=== PATIENT | female | born 1965 | race Caucasian/White ===

== ENCOUNTER → 2017-04-09 | Outpatient (CLI) | payer OTHER ==
--- NOTE | 2017-04-09 11:00 | XR ---
EXAMINATION TYPE: XR lumbar spine 2 or 3V DATE OF EXAM: 04/09/2017 CLINICAL HISTORY: History of 2 prior back surgeries presents with low back pain. TECHNIQUE: Frontal and lateral images of the lumbar spine are obtained. COMPARISON: Abdominal x-ray October 25, 2014 FINDINGS: There are 5 lumbar type vertebral bodies redemonstrated. The lumbar spine shows straighte carlos enrique alignment without evidence of acute fracture or dislocation. There is redemonstration of bilatera l laminectomy defects and spinous process resection at L4-L5 levels. There is bilateral interpedicula r rods and screws at L4-S1 levels redemonstrated. Artificial hyperdense disc material L4-L5 level is again seen. There is moderate to advanced disc space narrowing with mild to moderate spurring L5-S1 l evel. Vertebral body heights and disk space heights above surgical levels are within normal limits. The overlying soft tissue appears unremarkable. IMPRESSION: Postsurgical change L4-S1 level redemonstrated. Stable and satisfactory alignment is note d.
--- NOTE | 2017-04-09 11:01 | XR ---
EXAMINATION TYPE: XR foot limited bilateral DATE OF EXAM: 04/09/2017 CLINICAL HISTORY: Numbness and pain starting in left foot down both feet for one year per patient. TECHNIQUE: Frontal and lateral images of the bilateral the are obtained. COMPARISON: None FINDINGS: There is no acute fracture/dislocation evident in either foot. There are small spurs super ior and inferior calcaneus and both feet. Flexion in toes is present bilaterally worse in the left fo ot. The overlying soft tissue show some vascular calcification bilaterally. IMPRESSION: Bilateral small calcaneal spurring. Flexion or hammertoe type deformity of toes left foot .
== END | disposition home or self-care (01) ==
LOC: RADXRMAIN 10:27
PROVIDERS: ATTEND Internal Medicine
DX: M77.32 Calcaneal spur, left foot (principal); M77.31 Calcaneal spur, right foot; M54.5 Low back pain; Z98.890 Other specified postprocedural states
CPT/HCPCS: 72100

== ENCOUNTER → 2018-10-06 | Outpatient (CLI) | payer OTHER ==
[2018-10-06 10:16] LABS: HCT 43.7 % (34.0-46.0); HGB 14.2 gm/dL (11.4-16.0); MCHC 32.4 g/dL (31.0-37.0); MCV 83.4 fL (80.0-100.0); Mean Platelet Volume 8.1; Platelet Count 212 k/uL (150-450); RBC 5.24 m/uL (3.80-5.40); RDW 14.6 % (11.5-15.5); WBC 8.5 k/uL (3.8-10.6)
[2018-10-06 17:08] LABS: Albumin 4.1 g/dL (3.80-4.90); Albumin/Globulin Ratio 1.52 (1.60-3.17); Anion Gap 8.1 mmol/L (4.00-12.00); Calcium 9.4 mg/dL (8.7-10.3); Carbon Dioxide 24.9 mmol/L (21.6-31.8); Globulin 2.7 g/dL (1.6-3.3); Potassium 4.3 mmol/L (3.5-5.5); Total Bilirubin 0.3 mg/dL (0.3-1.2); Total Protein 6.8 g/dL (6.2-8.2)
[2018-10-06 19:13] LABS: Hemoglobin A1C 7.6 % (4.0-6.0)
== END | disposition home or self-care (01) ==
LOC: LABWHC1 09:05
PROVIDERS: ATTEND Internal Medicine
DX: E11.9 Type 2 diabetes mellitus without complications (principal); R42 Dizziness and giddiness; R11.0 Nausea
CPT/HCPCS: 36415; 80053; 83036; 84443; 85027

== ENCOUNTER 2018-12-09 15:39 | Observation (INO) | payer OTHER ==
[2018-12-09 15:44] VITALS: RESP 16
[2018-12-09] MEDS ORDERED: ONDANSETRON 4 MG/2 ML VIAL IVP STA (15:46)
[2018-12-09] MEDS ORDERED: SODIUM CHLORIDE 0.9% 1,000 ML IV STA (15:46)
[2018-12-09 16:11] LABS: Anion Gap 11 mmol/L; Blood Urea Nitrogen 17 mg/dL (7-17); Calcium 9.7 mg/dL (8.4-10.2); Carbon Dioxide 23 mmol/L (22-30); Chloride 104 mmol/L (98-107); Glucose 170 mg/dL (74-99); Magnesium 1.6 mg/dL (1.6-2.3); Potassium 4.1 mmol/L (3.5-5.1); Sodium 138 mmol/L (137-145)
[2018-12-09 16:33] LABS: Basophils % (A) 0 %; Eosinophils % (A) 0 %; HCT 42.9 % (34.0-46.0); HGB 14.1 gm/dL (11.4-16.0); Lymphocytes # (A) 1.2 k/uL (1.0-4.8); Lymphocytes % (A) 12 %; MCH 26.6 pg (25.0-35.0); MCV 80.8 fL (80.0-100.0); Mean Platelet Volume 8.7; Monocytes # (A) 0.2 k/uL (0-1.0); Monocytes % (A) 2 %; Neutrophils % (A) 84 %; Platelet Count 228 k/uL (150-450); RBC 5.31 m/uL (3.80-5.40); WBC 9.6 k/uL (3.8-10.6)
--- NOTE | 2018-12-09 16:34 | XR ---
EXAMINATION TYPE: XR abdomen acute w cxr DATE OF EXAM: 12/09/2018 CLINICAL HISTORY: Nausea vomiting and chest pain. TECHNIQUE: Single frontal view of chest is obtained. Supine and upright views of the abdomen are acq uired. COMPARISON: CTA chest 2014. FINDINGS: The lungs are grossly clear without pleural effusion or pneumothorax. Cardiac silhouette size appears within normal limits. Osseous structures are intact. There is some paucity of bowel gas. Visualized gas is noted in nondistended small and large bowel loo ps throughout the abdomen and pelvis. Posterior interpedicular rods and screws transfix L4-S1 level b ilaterally. Artificial disc material L4-L5 level is seen. Cholecystectomy clips are noted. No pneumop eritoneum is present. Vascular calcification bilateral pelvis is seen. IMPRESSION: 1. No acute pulmonary process. 2. Overall nonspecific but likely nonobstructive bowel gas pattern.
[2018-12-09] MEDS ORDERED: METOCLOPRAMIDE 5 MG/ML 2 ML VIAL IVP STA (16:44)
--- NOTE | 2018-12-09 16:52 | ED ---
General Adult HPI - General Chief complaint: Nausea/Vomiting/Diarrhea Stated complaint: High BP Time Seen by Provider: 12/09/18 15:45 Source: patient Mode of arrival: EMS Limitations: no limitations - History of Present Illness Initial comments: Dictation was produced using [employer] dictation software. please excuse any grammatical, word or spelling errors. Chief Complaint: 52-year-old female past medical history of diabetes presents with nausea vomiting diarrhea 1 day. History of Present Illness: Patient is a 52-year-old female she presents with chief complaint of nausea vomiting and diarrhea. She states that her symptoms have been ongoing for one day. She states that her son is also sick however she is unsure whether her son has had similar symptoms. Patient's history of diabetes. She takes by mouth diabetes medications. Patient states she's been having chills especially around the time where she started up. Patient states she has a gallbladder removed. Patient is a daily smoker. Patient does not kno w of any history of gastroparesis. She also reports some epigastric pain. She reports that her epigastric pain is constant. She states her diarrhea is watery. The ROS documented in this emergency department record has been reviewed and confirmed by me. Those systems with pertinent positive or negative responses have been documented in the HPI. All other systems are other negative and/or noncontributory. PHYSICAL EXAM: General Impression: Alert and oriented x3, acute distress secondary to nausea HEENT: Normocephalic atraumatic, extra-ocular movements intact, pupils equal and reactive to light bilaterally, dry mucous membranes Cardiovascular: Heart regular rate and rhythm, S1&S2 audible, no murmurs, rubs or gallops Chest: Lungs clear to auscultation bilaterally, no rhonchi, no wheeze, no rales Abdomen: Bowel sounds present, abdomen soft, non-tender, non-distended, no organomegaly Musculoskeletal: Pulses present and equal in all extremities, no peripheral edema Motor: no focal deficits noted Neurological: CN II-XII grossly intact, no focal motor or sensory deficits noted Skin: Intact with no visualized rashes ED course: 52-year-old Female with chief complaint of one day of nausea vomiting diarrhea. Vital signs upon arrival are within acceptable limits. Patient's very toxic appearing. And having multiple bouts of emesis at bedside. Laboratory evaluation obtained. CBC, metabolic panel, rapid urine drug screen is obtained. CBC and BMP are unremarkable. Patient's positive for marijuana. Patient reports that she does smoke marijuana on a daily basis. Abdominal x-ray was performed showing no acute processes. Given patient's degree of symptoms CT of the abdomen and pelvis was obtained. CT shows mild diffuse colitis. There is also findings of possible cystitis. Urinalysis is added on patient not having any urinary symptoms.. More history was obtained from patient. She denies any recent antibiotics, recent travel, camping, drinking contaminated water eating contaminated foods or being in patient to the hospital recently. At this point there is no clear indication for antibiotics. Patient given multiple rounds of antiemetics with minimal resolution of her symptoms. Patient not tolerating by mouth. We will plan to admit patient observation for fluid management, antiemetics and GI consultation. Patient understandable and agreeable to plan. Patient's symptoms likely secondary to nonspecific colitis possible viral. Patient also likely nauseated from cyclical vomiting syndrome given that she is a daily marijuana user. EKG interpretation: Ventricular rate 95, normal sinus rhythm, WV interval 150, Q's 80, QTc 477. No WV prolongation, no QTC prolongation, no ST or T-wave changes noted. Overall, this EKG is unremarkable - Related Data Home Medications Medication Instructions Recorded Confirmed Ertugliflozin Pidolate [Steglatro] 15 mg PO DAILY 12/09/18 12/09/18 Glimepiride [Amaryl] 4 mg PO BID 12/09/18 12/09/18 Hydrocodone/Acetaminophen [[place] 1 tab PO TID PRN 12/09/18 12/09/18 10-325] metFORMIN HCL [Glucophage] 1,000 mg PO BID 12/09/18 12/09/18 Allergies Allergy/AdvReac Type Severity Reaction Status Date / Time No Known Allergies Allergy Verified 12/09/18 16:43 Review of Systems ROS Statement: Those systems with pertinent positive or pertinent negative responses have been documented in the HPI. ROS Other: All systems not noted in ROS Statement are negative. Past Medical History Past Medical History: Diabetes Mellitus Additional Past Medical History / Comment(s): GESTATIONAL DIABETES, ELEVATED CHOLESTERAL History of Any Multi-Drug Resistant Organisms: None Reported Past Surgical History: Back Surgery, Section, Cholecystectomy, Tubal Ligation Additional Past Surgical History / Comment(s): TUBES TIED Past Anesthesia/Blood Transfusion Reactions: No Reported Reaction Past Psychological History: Anxiety Smoking Status: Current every day smoker Past Alcohol Use History: None Reported Past Drug Use History: None Reported - Past Family History Mother Family Medical History: No Reported History General Exam Limitations: no limitations Course Vital Signs 12/09/18 12/09/18 15:40 17:48 Temperature 98.4 F 98.2 F Pulse Rate 95 81 Respiratory 16 16 Rate Blood Pressure 165/96 162/94 O2 Sat by Pulse 100 97 Oximetry Medical Decision Making - Lab Data Result diagrams: 12/09/18 15:51 12/09/18 15:51 Lab Results 12/09/18 12/09/18 12/09/18 Range/Units 15:51 15:51 17:13 WBC 9.6 (3.8-10.6) k/uL RBC 5.31 (3.80-5.40) m/uL Hgb 14.1 (11.4-16.0) gm/dL Hct 42.9 (34.0-46.0) % MCV 80.8 (80.0-100.0) fL MCH 26.6 (25.0-35.0) pg MCHC 33.0 (31.0-37.0) g/dL RDW 15.0 (11.5-15.5) % Plt Count 228 (150-450) k/uL Neutrophils % 84 % Lymphocytes % 12 % Monocytes % 2 % Eosinophils % 0 % Basophils % 0 % Neutrophils # 8.0 H (1.3-7.7) k/uL Lymphocytes # 1.2 (1.0-4.8) k/uL Monocytes # 0.2 (0-1.0) k/uL Eosinophils # 0.0 (0-0.7) k/uL Basophils # 0.0 (0-0.2) k/uL Sodium 138 (137-145) mmol/L Potassium 4.1 (3.5-5.1) mmol/L Chloride 104 (98-107) mmol/L Carbon Dioxide 23 (22-30) mmol/L Anion Gap 11 mmol/L BUN 17 (7-17) mg/dL Creatinine 0.72 (0.52-1.04) mg/dL Est GFR (CKD-EPI)AfAm >90 (>60 ml/min/1.73 sqM) Est GFR (CKD-EPI)NonAf >90 (>60 ml/min/1.73 sqM) Glucose 170 H (74-99) mg/dL Calcium 9.7 (8.4-10.2) mg/dL Magnesium 1.6 (1.6-2.3) mg/dL Urine Opiates Screen Not Detected (NotDetected) Ur Oxycodone Screen Not Detected (NotDetected) Urine Methadone Screen Not Detected (NotDetected) Ur Propoxyphene Screen Not Detected (NotDetected) Ur Barbiturates Screen Not Detected (NotDetected) U Tricyclic Antidepress Not Detected (NotDetected) Ur Phencyclidine Scrn Not Detected (NotDetected) Ur Amphetamines Screen Not Detected (NotDetected) U Methamphetamines Scrn Not Detected (NotDetected) U Benzodiazepines Scrn Not Detected (NotDetected) Urine Cocaine Screen Not Detected (NotDetected) U Marijuana (THC) Screen Detected H (NotDetected) Disposition Clinical Impression: Intractable vomiting Disposition: ADMITTED IP TO THIS [facility] Condition: Fair Referrals: Jenny Sepulveda MD [Primary Care Provider] - 1-2 days Decision Time: 18:03
[2018-12-09 17:34] LABS: Amphetamine Screen,Urine Not Detected (NotDetected); Barbiturate Screen,Urine Not Detected (NotDetected); Benzodiazepines Screen,Urine Not Detected (NotDetected); Cocaine Screen,Urine Not Detected (NotDetected); Methadone Screen, Urine Not Detected (NotDetected); Opiate Screen,Urine Not Detected (NotDetected); Oxycodone Screen, Urine Not Detected (NotDetected); Phencyclidine Screen,Urine Not Detected (NotDetected); Tricyclic Antidepressant,Urine Not Detected (NotDetected); Urn Cannabinoid Scrn Detected (NotDetected)
--- NOTE | 2018-12-09 17:34 | CT ---
EXAMINATION TYPE: CT abdomen pelvis w con DATE OF EXAM: 12/09/2018 HISTORY: Abdominal pain, nausea, vomiting and diarrhea. CT DLP: 873.5mGycm Automated Exposure Control for Dose Reduction was Utilized. CONTRAST: CT scan of the abdomen and pelvis is performed without oral but with IV Contrast, patient injected wi th 100ml mL of Isovue 300. COMPARISON: None. FINDINGS: LUNG BASES: No significant abnormality is appreciated. LIVER/GB: Cholecystectomy clips are present. PANCREAS: No significant abnormality is seen. SPLEEN: No significant abnormality is seen. ADRENALS: No significant abnormality is seen. KIDNEYS: No renal stones or hydronephrosis. Symmetric cortical medullary uptake and excretion. Bladde r wall shows nondependent air with mild wall thickening. Possible cystitis. Correlate for recent fist xin otherwise other etiologies need to be considered. BOWEL: Evaluation bowel is suboptimal secondary to lack of enteric contrast. There is no suspicious s mall or large bowel dilatation. There is mild to moderate wall thickening involving the right and tra nsverse colon extending into the left and sigmoid colon into the rectum. A long segment colitis canno t be excluded, correlate clinically. UTERUS/ADNEXA: Anteverted uterus. Scattered pelvic phleboliths. LYMPH NODES: No greater than 1cm abdominal or pelvic lymph nodes are appreciated. OSSEOUS STRUCTURES: Posterior interpedicular rods and screws transfix L4-S1 levels bilaterally. Artif icial disc material is present. Laminectomy defects and spinous process resection is seen.. OTHER: No significant additional abnormality is seen. IMPRESSION: 1. Possible mild diffuse colitis. Correlate clinically. Differential includes infectious and inflamma tory etiologies including possible pseudomembranous colitis. 2. Possible cystitis, correlate clinically and with urine and lab values.
[2018-12-09] MEDS ORDERED: ACETAMINOPHEN TAB 325 MG TAB PO PRN (17:57)
[2018-12-09] MEDS ORDERED: NALOXONE 0.4 MG/ML 1 ML VIAL IV PRN (17:57)
[2018-12-09] MEDS: SODIUM CHLORIDE 0.9% 1,000 ML IV SCH (18:11)
[2018-12-09 18:41] LABS: Appearance,Urine Clear (Clear); Bilirubin,Urine Negative (Negative); Blood,Urine Negative (Negative); Color,Urine Light Yellow; Glucose,Urine (UA) 4+ (Negative); Leukocyte Esterase,Urine Negative (Negative); Mucus,Urine Rare /hpf; Nitrite,Urine Negative (Negative); PH, Urine 7.5 (5.0-8.0); Protein,Urine 1+ (Negative); RBC,Urine <1 /hpf (0-5); Specific Gravity,Urine 1.027 (1.001-1.035); Squamous Epithelial Cell,Urine 1 /hpf (0-4); Urobilinogen,Urine <2.0 mg/dL (<2.0)
[2018-12-09 18:54] LABS: Ketones,Urine 2+ (Negative)
[2018-12-09 19:23] VITALS: BMI 26.1
[2018-12-09] MEDS ORDERED: metFORMIN 500 MG TAB PO SCH (21:00)
[2018-12-09 21:14] LABS: Glucose,Whole Blood 130 mg/dL (75-99)
[2018-12-09] MEDS: INSULIN ASPART (NovoLOG) 100 UNIT/ML VIAL SQ SCH (21:44)
[2018-12-09] MEDS: GLIMEPIRIDE 4 MG TAB PO SCH (21:47)
[2018-12-10] MEDS: ONDANSETRON 4 MG/2 ML VIAL IVP PRN ×3 (05:19→21:14)
[2018-12-10] MEDS: SODIUM CHLORIDE 0.9% 1,000 ML IV SCH ×2 (05:20→16:42)
[2018-12-10 07:05] LABS: Glucose,Whole Blood 74 mg/dL (75-99)
[2018-12-10] MEDS: INSULIN ASPART (NovoLOG) 100 UNIT/ML VIAL SQ SCH ×4 (07:42→20:12)
[2018-12-10] MEDS: ERTUGLIFLOZIN PIDOLATE 15 MG PO SCH (08:12)
[2018-12-10] MEDS: GLIMEPIRIDE 4 MG TAB PO SCH ×2 (08:13→20:12)
[2018-12-10] MEDS: PANTOPRAZOLE 40 MG/10 ML VIAL IV SCH (08:13)
[2018-12-10] MEDS: HYDROcodone/APAP 10-325MG 1 EACH TAB PO PRN ×2 (08:18→19:01)
[2018-12-10 11:57] LABS: Glucose,Whole Blood 100 mg/dL (75-99)
--- NOTE | 2018-12-10 12:20 | P.HPIM ---
History of Present Illness This is a pleasant 53 years old female with past medical history of diabetes mellitus, hyperlipidemia, cholecystectomy. Presents with intractable nausea vomiting. Patient was at work when she still feeling comfortable but the time she got home she has several bouts of vomiting and epigastric abdominal pain with diarrhea. So she called 911 and decided to come to the hospital. Patient denies fever or chest pain or dyspnea. Patient was treated with several medications and looks like start helping her. Also patient was started on IV fluids patient has been diabetic for more than 20 years and she has this problem only was about 3-4 years ago. Also she is been using marijuana since age 16 never cause her problem. On admission Patient is tachycardic, rest of vitals are stable. CBC and BMP were unremarkable. Sugar control. Magnesium 1.6. UA is positive for glucose and ketones (urine drug screen is positive for marijuana. Review of Systems CONSTITUTIONAL: No fever, no malaise, no fatigue. HEENT: No recent visual problems or hearing problems. Denied any sore throat. CARDIOVASCULAR: No orthopnea, PND, no palpitations, no syncope. PULMONARY: No shortness of breath, no cough, no hemoptysis. GASTROINTESTINAL: No diarrhea, no nausea, no vomiting, no abdominal pain. Normoactive bowel sounds. NEUROLOGICAL: No headaches, no weakness, no numbness. HEMATOLOGICAL: Denies any bleeding or petechiae. GENITOURINARY: Denies any burning micturition, frequency, or urgency. MUSCULOSKELETAL/RHEUMATOLOGICAL: Denies any joint pain, swelling, or any muscle pain. ENDOCRINE: Denies any polyuria or polydipsia. Past Medical History Past Medical History: Diabetes Mellitus, Hyperlipidemia Additional Past Medical History / Comment(s): GESTATIONAL DIABETES, History of Any Multi-Drug Resistant Organisms: None Reported Past Surgical History: Back Surgery, Section, Cholecystectomy, Tubal Ligation Additional Past Surgical History / Comment(s): TUBES TIED, bilateral cataracts Past Anesthesia/Blood Transfusion Reactions: No Reported Reaction Past Psychological History: Anxiety Smoking Status: Current every day smoker Past Alcohol Use History: None Reported Additional Past Alcohol Use History / Comment(s): STARTED SMOKING AT AGE 17 Past Drug Use History: None Reported - Past Family History Mother Family Medical History: No Reported History Medications and Allergies Home Medications Medication Instructions Recorded Confirmed Type Ertugliflozin Pidolate [Steglatro] 15 mg PO DAILY 12/09/18 12/09/18 History Glimepiride [Amaryl] 4 mg PO BID 12/09/18 12/09/18 History Hydrocodone/Acetaminophen [[place] 1 tab PO TID PRN 12/09/18 12/09/18 History 10-325] metFORMIN HCL [Glucophage] 1,000 mg PO BID 12/09/18 12/09/18 History Allergies Allergy/AdvReac Type Severity Reaction Status Date / Time No Known Allergies Allergy Verified 12/09/18 16:43 Physical Exam Vitals: Vital Signs Temp Pulse Pulse Resp BP BP Pulse Ox 12/10/18 05:58 98.3 F 111 H 16 122/73 97 12/09/18 21:00 98.9 F 112 H 16 151/89 97 12/09/18 17:48 98.2 F 81 16 162/94 97 12/09/18 15:40 98.4 F 95 16 165/96 100 Intake and Output 12/09/18 12/10/18 12/10/18 22:59 06:59 14:59 Intake Total 350 800 Balance 350 800 Intake: Intake, IV Titration 350 800 Amount Sodium Chloride 0.9% 1, 350 800 000 ml @ 100 mls/hr IV . Q10H [facility] Rx#:[id number] Other: Voiding Method Toilet # Voids 1 Weight 78.018 kg GENERAL: The patient is alert and oriented x3, not in any acute distress. Well developed, well nourished. HEENT: Pupils are round and equally reacting to light. EOMI. No scleral icterus. No conjunctival pallor. Normocephalic, atraumatic. No pharyngeal erythema. No thyromegaly. CARDIOVASCULAR: S1 and S2 present. No murmurs, rubs, or gallops. PULMONARY: Chest is clear to auscultation, no wheezing or crackles. ABDOMEN: Soft, nontender, nondistended, normoactive bowel sounds. No palpable organomegaly. MUSCULOSKELETAL: No joint swelling or deformity. EXTREMITIES: No cyanosis, clubbing, or pedal edema. NEUROLOGICAL: Gross neurological examination did not reveal any focal deficits. SKIN: No rashes. Results CBC & Chem 7: 12/09/18 15:51 12/09/18 15:51 Labs: Abnormal Lab Results - Last 24 Hours (Table) 05/10/2512/09/18 12/09/18 Range/Units 15:51 15:51 17:13 Neutrophils # 8.0 H (1.3-7.7) k/uL Glucose 170 H (74-99) mg/dL POC Glucose (mg/dL) (75-99) mg/dL Urine Protein (Negative) Urine Glucose (UA) (Negative) Urine Ketones (Negative) Urine Mucus (None) /hpf U Marijuana (THC) Screen Detected H (NotDetected) 12/09/18 12/09/18 12/10/18 Range/Units 17:13 21:13 07:03 Neutrophils # (1.3-7.7) k/uL Glucose (74-99) mg/dL POC Glucose (mg/dL) 130 H 74 L (75-99) mg/dL Urine Protein 1+ H (Negative) Urine Glucose (UA) 4+ H (Negative) Urine Ketones 2+ H (Negative) Urine Mucus Rare H (None) /hpf U Marijuana (THC) Screen (NotDetected) Thrombosis Risk Factor Assmnt - Choose All That Apply Any of the Below Risk Factors Present?: Yes Each Factor Represents 1 point: Age 41-60 years, Obesity (BMI >25) Other Risk Factors: No Other congenital or acquired thrombophilia - If yes, enter type in comment: No Thrombosis Risk Factor Assessment Total Risk Factor Score: 2 Thrombosis Risk Factor Assessment Level: Low Risk Assessment and Plan Assessment: Acute Gastroenteritis Intractable nausea vomiting, could be related to her, or gastroenteritis diabetes or marijuana use versus others Substance abuse including marijuana. Patient is counseled Occasional cigarette smoker. Patient is counseled. She does not want nicotine patch History of diabetes mellitus Hyperlipidemia History of cholecystectomy Plan: This is a pleasant 53 years old female who presents with concerns that this like picture. Continue with IV fluid. Nausea medicine. Labs and medication were reviewed.. Continue same treatment. Continue with symptomatic treatment. Resume home medication. Monitor lytes and vitals. DVT and GI prophylaxis. Further recommendations of the clinical course of the patient DVT prophylaxis: Subcutaneous Lovenox GI Prophylaxis: Protonix Prognosis is guarded
--- NOTE | 2018-12-10 15:47 | CONS ---
CONSULTATION DATE OF CONSULTATION: 12/10/2018 REQUESTING PHYSICIAN: Dr. Sepulveda. REASON FOR CONSULTATION: Nausea, vomiting, diarrhea. HISTORY OF PRESENT ILLNESS: The patient is a 53-year-old pleasant white female who was doing well and while at work had sudden onset of abdominal pain followed by nausea, vomiting, diarrhea. She had at least 10 episodes of nausea, vomiting, followed by 10-15 episodes of loose, watery bowel movements. Came into the emergency room and subsequently admitted to the hospital for further evaluation. She did have a CT of the abdomen and pelvis done in the emergency room that showed thickening of the colon suspicious for colitis. The patient never had these symptoms in the past. She denies any rectal bleeding or melena. She denies any recent travel history. Denies any new medications that was taken recently. No recent antibiotic use. PAST MEDICAL HISTORY: Significant for diabetes mellitus. PAST SURGICAL HISTORY: Cholecystectomy, , tubal ligation. MEDICATIONS: At home include Steglatro, Amaryl, [place], Glucophage. SOCIAL HISTORY: No smoking or alcohol use. FAMILY HISTORY: Unremarkable. REVIEW OF SYSTEMS: CARDIOPULMONARY: No chest pain, shortness of breath. GENITOURINARY: No dysuria, hematuria. MUSCULOSKELETAL: Unremarkable. SKIN: Unremarkable. ENDOCRINE: Unremarkable. PSYCHIATRY: Unremarkable. NEUROLOGY: Unremarkable. ENT: Vision unremarkable. CONSTITUTIONAL: No recent weight loss. No fever, chills, night sweats. GI: She has history of chronic constipation since her gallbladder surgery 4 years ago. She has been on narcotics on and off for several years and most likely has narcotic induced constipation. She was started on Steglatro recently by Dr. Sepulveda for constipation and she is doing much better. PHYSICAL EXAMINATION: Appears comfortable, no apparent distress. Vital signs are stable. Blood pressure is 132/86, pulse rate 95, temperature 98.4. HEENT examination unremarkable. Conjunctivae pink. Sclerae anicteric. Oral cavity, no lesions. NECK: No JVD or lymph node enlargement. CHEST: Clear to auscultation. HEART: Regular rate and rhythm. ABDOMEN: Soft. Bowel sounds are positive. No organomegaly. EXTREMITIES: No pedal edema. SKIN: No rashes. NEUROLOGIC: Alert and oriented x3. No focal deficits. LABS: WBC 9.6, hemoglobin 14.1, platelets normal. Basic metabolic panel is within normal limits. Stool studies were ordered but not done because she did not have any bowel movements since being in the hospital. IMPRESSION: 1. This is a lady with who is in good state of health, admitted to hospital with acute onset of nausea, vomiting, diarrhea, and epigastric pain all consistent with possible viral gastroenteritis. She did have CT of the abdomen that showed diffuse thickening of the colon suspicious for acute colitis, which again could be infectious in etiology. Doubt bacterial colitis. Her symptoms have significantly improved since being in the hospital. She tolerated clear liquid diet this morning. 2. Diabetes mellitus. 3. History of chronic constipation. RECOMMENDATION: 1. Continue with antiemetics as needed. 2. Advance to regular diet. 3. If she is doing well, she can be discharged home later today. Thank you for this consultation. MEGHAN / DMITRY: [id number] /
[2018-12-10 17:32] LABS: Glucose,Whole Blood 120 mg/dL (75-99)
[2018-12-10 20:03] LABS: Glucose,Whole Blood 158 mg/dL (75-99)
[2018-12-11] MEDS: SODIUM CHLORIDE 0.9% 1,000 ML IV SCH ×2 (05:43→11:24)
[2018-12-11 06:49] LABS: Glucose,Whole Blood 90 mg/dL (75-99)
[2018-12-11] MEDS: INSULIN ASPART (NovoLOG) 100 UNIT/ML VIAL SQ SCH ×2 (07:08→12:15)
[2018-12-11] MEDS: ERTUGLIFLOZIN PIDOLATE 15 MG PO SCH (07:54)
[2018-12-11] MEDS: GLIMEPIRIDE 4 MG TAB PO SCH (07:55)
[2018-12-11] MEDS: PANTOPRAZOLE 40 MG/10 ML VIAL IV SCH (07:59)
[2018-12-11] MEDS ORDERED: ENOXAPARIN 40 MG/0.4 ML SYRINGE SQ SCH (09:00)
[2018-12-11] MEDS: HYDROcodone/APAP 10-325MG 1 EACH TAB PO PRN (09:38)
--- NOTE | 2018-12-11 09:38 | PN ---
PROGRESS NOTE DATE OF SERVICE: 12/11/2018 The patient is a 53-year-old pleasant white female admitted to the hospital with sudden onset of nausea, vomiting, diarrhea for the last 2 days duration. Her symptoms have significantly improved. She is still nauseated but able to tolerate soft diet reasonably well. She ate dinner last night and felt somewhat full in the epigastric area with some nausea but no emesis. No diarrhea. No fever, chills, or night sweats. PHYSICAL EXAMINATION: Appears comfortable in no apparent distress. VITAL SIGNS: Stable. Blood pressure is 122/73, pulse rate 111, and temperature 98.3. HEENT examination unremarkable. Conjunctivae pink. Sclerae anicteric. Oral cavity no lesions. NECK: No jugular venous distention or lymph node enlargement. Chest was clear to auscultation. HEART: Regular rate and rhythm. ABDOMEN: Soft. Bowel sounds are positive. No organomegaly. EXTREMITIES: No pedal edema. Skin no rashes. NEUROLOGIC: Alert and oriented x3. No focal deficits. LABS: Not available from this morning. IMPRESSION: Acute onset of nausea, vomiting, diarrhea of two days duration, most likely dealing with viral gastroenteritis which symptoms have seemed to be significantly improved. RECOMMENDATION: 1. Continue with antiemetics as needed. 2. Advance diet as tolerated. 3. She can be discharged home today with outpatient follow up in 2-3 weeks. MMODL / IJN: [id number] /
[2018-12-11 11:08] LABS: Glucose,Whole Blood 149 mg/dL (75-99)
[2018-12-11 11:51] VITALS: BP 124/75; PULSE 88; TEMP 98
--- NOTE | 2018-12-11 12:22 | P.DS ---
Providers Date of admission: 12/09/18 17:57 Attending physician: Omega Sumner Consults: 12/09/18 17:58 Consult Physician Routine Consulting Provider: Zachary Gross Consult Reason/Comments: abdominal symtpoms Do you want consulting provider notified?: Yes Primary care physician: Derick Alvarado Hospital Course: Diagnoses Acute Gastroenteritis Intractable nausea vomiting, could be related to her acute gastroenteritis , with some contribution from her diabetes or marijuana use versus others Substance abuse including marijuana. Patient is counseled Occasional cigarette smoker. Patient is counseled. She does not want nicotine patch History of diabetes mellitus Hyperlipidemia History of cholecystectomy Hospital course: This is a pleasant 53 years old female with past medical history of diabetes me llitus, hyperlipidemia, cholecystectomy. Presents with intractable nausea vomiting. Associated with some abdominal pain/discomfort and diarrhea. Patient was treated symptomatically and within one day her symptoms improved. No more nausea vomiting. Abdominal pain has resolved. She didn't have bowel movement since yesterday. Passing gases. No chest pain or dyspnea. No urinary complaints, no dysuria no change in frequency no suprapubic tenderness. CAT scan of the abdomen showed mild diffuse colitis No other complaint. Patient has been evaluated by structural layout worker who cleared her for discharge. Patient herself thinks and she wants to be discharged home. Problems and management plan was discussed with the patient and she verbalized understanding and acceptance and was found stable and can be discharged home however she needs follow up as an outpatient. Patient agrees with the appointments and is timing made for her with Dr. Santos and said she will follow up Gen: patient is a AAOx3, no distress CVS: S1-S2, RRR, no murmur Lungs: B/L CTA, no wheezing Abdomen: soft, no distention, no tenderness, positive bowel sounds Extremity: no leg edema or induration Time spent more than 35 minutes Patient Condition at Discharge: Fair Plan - Discharge Summary Discharge Rx Participant: No New Discharge Prescriptions: No Action metFORMIN HCL [Glucophage] 1,000 mg PO BID Hydrocodone/Acetaminophen [[place] 10-325] 1 tab PO TID PRN PRN Reason: Pain Glimepiride [Amaryl] 4 mg PO BID Ertugliflozin Pidolate [Steglatro] 15 mg PO DAILY Discharge Medication List Ertugliflozin Pidolate [Steglatro] 15 mg PO DAILY 12/09/18 [History] Glimepiride [Amaryl] 4 mg PO BID 12/09/18 [History] Hydrocodone/Acetaminophen [[place] 10-325] 1 tab PO TID PRN 12/09/18 [History] metFORMIN HCL [Glucophage] 1,000 mg PO BID 12/09/18 [History] Follow up Appointment(s)/Referral(s): Jenny Sepulveda MD [Primary Care Provider] - 12/19/18 9:30 am
[2018-12-12] MEDS ORDERED: PANTOPRAZOLE 40 MG TABLET PO SCH (07:30)
== END 2018-12-11 13:10 | disposition home health service (06) ==
LOC: EC 15:39 → 3NMEDONC 17:57
PROVIDERS: ADMIT Hospitalist; ATTEND Hospitalist
DX: K52.9 Noninfective gastroenteritis and colitis, unspecified (principal); R11.2 Nausea with vomiting, unspecified; R10.13 Epigastric pain; R00.0 Tachycardia, unspecified; E11.9 Type 2 diabetes mellitus without complications; F17.210 Nicotine dependence, cigarettes, uncomplicated; F19.10 Other psychoactive substance abuse, uncomplicated; E78.5 Hyperlipidemia, unspecified; F41.9 Anxiety disorder, unspecified; K59.09 Other constipation; E66.9 Obesity, unspecified; Z68.26 Body mass index [BMI] 26.0-26.9, adult; Z90.49 Acquired absence of other specified parts of digestive tract; Z79.84 Long term (current) use of oral hypoglycemic drugs; Z79.899 Other long term (current) drug therapy; Z86.32 Personal history of gestational diabetes
CPT/HCPCS: 96376 ×2; 96361 ×2; 96375 ×2; 96374; 99285; 36415; 93005; 80048; 83735; 85025; 81001; 80306; 74022; 74177; G0378 ×3; J2765; J2405 ×2; C9113 ×2; Q9967

== ENCOUNTER 2019-05-07 21:33 | Observation (INO) | payer OTHER ==
[2019-05-07] MEDS ORDERED: MORPHINE SULFATE 4 MG/ML SYRINGE IV STA (23:29)
[2019-05-07] MEDS ORDERED: SODIUM CHLORIDE 0.9% 1,000 ML IV STA (23:29)
--- NOTE | 2019-05-07 23:52 | ED ---
Abdominal Pain HPI - General Chief Complaint: Abdominal Pain Stated Complaint: Abd pain Time Seen by Provider: 05/07/19 23:06 Source: patient, family, RN notes reviewed, old records reviewed Mode of arrival: ambulatory Limitations: no limitations - History of Present Illness Initial Comments: This is a 53-year-old female the ER for evaluation patient does say for evaluation of severe abdominal pain epigastric abdominal pain with tenderness rating to her back. Patient's history of colitis is had her gallbladder removed. She has positive nausea no vomiting and has had diarrhea as of late. Patient is had 3 days of pain not getting any better. No fevers. No failure hours of similar complaints no travel history sick contacts. Patient also sever from diabetes and high cholesterol MD Complaint: abdominal pain -: days(s) (3) Location: diffuse, epigastric Radiation: epigastric Migration to: epigastric Severity: moderate Severity scale (1-10): 6 Quality: sharp Consistency: constant Improves With: nothing Worsens With: nothing Associated Symptoms: nausea, vomiting, diarrhea - Related Data Home Medications Medication Instructions Recorded Confirmed Ertugliflozin Pidolate [Steglatro] 15 mg PO DAILY 12/09/18 05/07/19 Glimepiride [Amaryl] 4 mg PO BID 12/09/18 05/07/19 Hydrocodone/Acetaminophen [[place] 1 tab PO TID PRN 12/09/18 05/07/19 10-325] metFORMIN HCL [Glucophage] 1,000 mg PO BID 12/09/18 05/07/19 Lisinopril [Prinivil] 10 mg PO DAILY 05/07/19 05/07/19 Allergies Allergy/AdvReac Type Severity Reaction Status Date / Time No Known Allergies Allergy Verified 05/07/19 23:43 Review of Systems ROS Statement: Those systems with pertinent positive or pertinent negative responses have been documented in the HPI. ROS Other: All systems not noted in ROS Statement are negative. Past Medical History Past Medical History: Diabetes Mellitus, Hyperlipidemia Additional Past Medical History / Comment(s): GESTATIONAL DIABETES, History of Any Multi-Drug Resistant Organisms: None Reported Past Surgical History: Back Surgery, Section, Cholecystectomy, Tubal Ligation Additional Past Surgical History / Comment(s): TUBES TIED, bilateral cataracts Past Anesthesia/Blood Transfusion Reactions: No Reported Reaction Past Psychological History: Anxiety Smoking Status: Current every day smoker Past Alcohol Use History: None Reported Past Drug Use History: Marijuana - Past Family History Mother Family Medical History: No Reported History General Exam Limitations: no limitations General appearance: alert, in no apparent distress Head exam: Present: atraumatic, normocephalic, normal inspection Eye exam: Present: normal appearance, PERRL, EOMI. Absent: scleral icterus, conjunctival injection, periorbital swelling ENT exam: Present: normal exam, mucous membranes moist Neck exam: Present: normal inspection. Absent: tenderness, meningismus, lymphadenopathy Respiratory exam: Present: normal lung sounds bilaterally. Absent: respiratory distress, wheezes, rales, rhonchi, stridor Cardiovascular Exam: Present: regular rate, normal rhythm, normal heart sounds. Absent: systolic murmur, diastolic murmur, rubs, gallop, clicks GI/Abdominal exam: Present: soft, normal bowel sounds. Absent: distended, tenderness, guarding, rebound, rigid Extremities exam: Present: normal inspection, full ROM, normal capillary refill. Absent: tenderness, pedal edema, joint swelling, calf tenderness Back exam: Present: normal inspection Neurological exam: Present: alert, oriented X3, CN II-XII intact Psychiatric exam: Present: normal affect, normal mood Skin exam: Present: warm, dry, intact, normal color. Absent: rash Course Vital Signs 05/07/19 05/07/19 21:54 23:26 Temperature 97.9 F Pulse Rate 87 Respiratory 18 16 Rate Blood Pressure 115/77 O2 Sat by Pulse 99 Oximetry - Reevaluation(s) Reevaluation #1: 05/08/19 00:14 Medical records reviewed Reevaluation #2: 05/08/19 00:14 Patient has improved pain control Medical Decision Making - Medical Decision Making 53 female the ER for evaluation patient is found to have pancreatitis will admit for IV hydration and nothing by mouth - Lab Data Result diagrams: 05/07/19 23:35 05/07/19 23:35 Lab Results 05/07/19 05/07/19 05/07/19 Range/Units 23:30 23:35 23:35 WBC 10.5 (3.8-10.6) k/uL RBC 5.26 (3.80-5.40) m/uL Hgb 14.5 (11.4-16.0) gm/dL Hct 41.8 (34.0-46.0) % MCV 79.4 L (80.0-100.0) fL MCH 27.6 (25.0-35.0) pg MCHC 34.8 (31.0-37.0) g/dL RDW 14.2 (11.5-15.5) % Plt Count 227 (150-450) k/uL Neutrophils % 75 % Lymphocytes % 18 % Monocytes % 5 % Eosinophils % 1 % Basophils % 0 % Neutrophils # 7.8 H (1.3-7.7) k/uL Lymphocytes # 1.9 (1.0-4.8) k/uL Monocytes # 0.5 (0-1.0) k/uL Eosinophils # 0.1 (0-0.7) k/uL Basophils # 0.0 (0-0.2) k/uL Sodium 138 (137-145) mmol/L Potassium 3.6 (3.5-5.1) mmol/L Chloride 101 (98-107) mmol/L Carbon Dioxide 25 (22-30) mmol/L Anion Gap 12 mmol/L BUN 17 (7-17) mg/dL Creatinine 0.85 (0.52-1.04) mg/dL Est GFR (CKD-EPI)AfAm >90 (>60 ml/min/1.73 sqM) Est GFR (CKD-EPI)NonAf 80 (>60 ml/min/1.73 sqM) Glucose 165 H (74-99) mg/dL Plasma Lactic Acid Abilio (0.7-2.0) mmol/L Calcium 9.8 (8.4-10.2) mg/dL Total Bilirubin 0.3 (0.2-1.3) mg/dL AST 20 (14-36) U/L ALT 15 (9-52) U/L Alkaline Phosphatase 87 (38-126) U/L Total Protein 7.7 (6.3-8.2) g/dL Albumin 4.3 (3.5-5.0) g/dL Amylase 151 H (30-110) U/L Lipase 766 H (23-300) U/L Urine Color Yellow Urine Appearance Clear (Clear) Urine pH 5.0 (5.0-8.0) Ur Specific [place] 1.034 (1.001-1.035) Urine Protein Trace H (Negative) Urine Glucose (UA) 4+ H (Negative) Urine Ketones Negative (Negative) Urine Blood Trace H (Negative) Urine Nitrite Positive H (Negative) Urine Bilirubin Negative (Negative) Urine Urobilinogen <2.0 (<2.0) mg/dL Ur Leukocyte Esterase Moderate H (Negative) Urine RBC 2 (0-5) /hpf Urine WBC Clumps Rare H (None) /hpf Ur Squamous Epith Cells 1 (0-4) /hpf Urine Bacteria Rare H (None) /hpf 05/07/19 Range/Units 23:35 WBC (3.8-10.6) k/uL RBC (3.80-5.40) m/uL Hgb (11.4-16.0) gm/dL Hct (34.0-46.0) % MCV (80.0-100.0) fL MCH (25.0-35.0) pg MCHC (31.0-37.0) g/dL RDW (11.5-15.5) % Plt Count (150-450) k/uL Neutrophils % % Lymphocytes % % Monocytes % % Eosinophils % % Basophils % % Neutrophils # (1.3-7.7) k/uL Lymphocytes # (1.0-4.8) k/uL Monocytes # (0-1.0) k/uL Eosinophils # (0-0.7) k/uL Basophils # (0-0.2) k/uL Sodium (137-145) mmol/L Potassium (3.5-5.1) mmol/L Chloride (98-107) mmol/L Carbon Dioxide (22-30) mmol/L Anion Gap mmol/L BUN (7-17) mg/dL Creatinine (0.52-1.04) mg/dL Est GFR (CKD-EPI)AfAm (>60 ml/min/1.73 sqM) Est GFR (CKD-EPI)NonAf (>60 ml/min/1.73 sqM) Glucose (74-99) mg/dL Plasma Lactic Acid Abilio 0.9 (0.7-2.0) mmol/L Calcium (8.4-10.2) mg/dL Total Bilirubin (0.2-1.3) mg/dL AST (14-36) U/L ALT (9-52) U/L Alkaline Phosphatase (38-126) U/L Total Protein (6.3-8.2) g/dL Albumin (3.5-5.0) g/dL Amylase (30-110) U/L Lipase (23-300) U/L Urine Color Urine Appearance (Clear) Urine pH (5.0-8.0) Ur Specific [place] (1.001-1.035) Urine Protein (Negative) Urine Glucose (UA) (Negative) Urine Ketones (Negative) Urine Blood (Negative) Urine Nitrite (Negative) Urine Bilirubin (Negative) Urine Urobilinogen (<2.0) mg/dL Ur Leukocyte Esterase (Negative) Urine RBC (0-5) /hpf Urine WBC Clumps (None) /hpf Ur Squamous Epith Cells (0-4) /hpf Urine Bacteria (None) /hpf Disposition Clinical Impression: Intractable vomiting, Abdominal pain, Pancreatitis Disposition: ADMITTED IP TO THIS HOSP Condition: Good Is patient prescribed a controlled substance at d/c from ED?: No Referrals: Jenny Sepulveda MD [Primary Care Provider] - 1-2 days
[2019-05-07 23:53] LABS: Basophils % (A) 0 %; Eosinophils # (A) 0.1 k/uL (0-0.7); Eosinophils % (A) 1 %; HCT 41.8 % (34.0-46.0); HGB 14.5 gm/dL (11.4-16.0); Lymphocytes # (A) 1.9 k/uL (1.0-4.8); Lymphocytes % (A) 18 %; MCH 27.6 pg (25.0-35.0); MCHC 34.8 g/dL (31.0-37.0); MCV 79.4 fL (80.0-100.0); Mean Platelet Volume 7.1; Monocytes # (A) 0.5 k/uL (0-1.0); Monocytes % (A) 5 %; Neutrophils # (A) 7.8 k/uL (1.3-7.7); Neutrophils % (A) 75 %; Platelet Count 227 k/uL (150-450); RBC 5.26 m/uL (3.80-5.40); RDW 14.2 % (11.5-15.5); WBC 10.5 k/uL (3.8-10.6)
[2019-05-07 23:55] LABS: Appearance,Urine Clear (Clear); Bacteria,Urine Rare /hpf; Bilirubin,Urine Negative (Negative); Blood,Urine Trace (Negative); Color,Urine Yellow; Glucose,Urine (UA) 4+ (Negative); Ketones,Urine Negative (Negative); Leukocyte Esterase,Urine Moderate (Negative); Nitrite,Urine Positive (Negative); Protein,Urine Trace (Negative); RBC,Urine 2 /hpf (0-5); Specific Gravity,Urine 1.034 (1.001-1.035); Squamous Epithelial Cell,Urine 1 /hpf (0-4); Urobilinogen,Urine <2.0 mg/dL (<2.0)
[2019-05-08 00:05] LABS: ALT 15 U/L (9-52); AST 20 U/L (14-36); African American GFR (CKD) >90 (>60 ml/min/1.73 sqM); Albumin 4.3 g/dL (3.5-5.0); Alkaline Phosphatase 87 U/L (38-126); Amylase 151 U/L (30-110); Anion Gap 12 mmol/L; Blood Urea Nitrogen 17 mg/dL (7-17); Calcium 9.8 mg/dL (8.4-10.2); Carbon Dioxide 25 mmol/L (22-30); Chloride 101 mmol/L (98-107); Glucose 165 mg/dL (74-99); Potassium 3.6 mmol/L (3.5-5.1); Sodium 138 mmol/L (137-145); Total Bilirubin 0.3 mg/dL (0.2-1.3); Total Protein 7.7 g/dL (6.3-8.2)
[2019-05-08] MEDS ORDERED: ONDANSETRON 4 MG/2 ML VIAL IVP PRN (00:23)
[2019-05-08] MEDS ORDERED: PANTOPRAZOLE 40 MG/10 ML VIAL IVP STA (00:23)
[2019-05-08] MEDS ORDERED: ONDANSETRON 4 MG/2 ML VIAL IVP STA (00:23)
[2019-05-08] MEDS: SODIUM CHLORIDE 0.9% 1,000 ML IV SCH ×2 (01:39→11:51)
--- NOTE | 2019-05-08 01:43 | CT ---
EXAMINATION TYPE: CT abdomen pelvis w con DATE OF EXAM: 05/08/2019 COMPARISON: 12/09/2018 HISTORY: epigastric pain CT DLP: 1064.7 mGycm Automated exposure control for dose reduction was used. TECHNIQUE: Helical acquisition of images was performed from the lung bases through the pelvis. CONTRAST: Performed without Oral Contrast and with IV Contrast, patient injected with 100 mL of Isovue 300. FINDINGS: Lung bases are clear. There is no pleural effusion. Heart size is normal. There is no pericardial eff usion. Liver spleen stomach pancreas appear normal. There are clips from cholecystectomy. Bile ducts are not dilated. There is 2 cm low-density right adrenal mass suggestive of benign disease. Unchanged. Kidneys show sa tisfactory contrast opacification. There is no hydronephrosis. Ureters are not dilated. There is no r etroperitoneal adenopathy. Bladder distends smoothly. There is no inguinal hernia. Uterus is antevert ed and tilted to the right side. There is no evidence of a pelvic mass. Appendix appears normal. Ther e is no sign of pelvic lymphadenopathy. There is no mesenteric edema. There is no ascites or free air. There is no sign of a bowel obstructio n. There is multilevel posterior lumbar surgery. There is no lumbar compression fracture. Bony pelvis appears intact. IMPRESSION: NO ACUTE ABNORMALITY OF THE ABDOMEN AND PELVIS. NO ADVERSE CHANGE COMPARED TO OLD EXAM.
[2019-05-08 02:40] VITALS: BMI 25.9
[2019-05-08] MEDS: MORPHINE SULFATE 4 MG/ML SYRINGE IVP PRN ×2 (04:12→08:45)
[2019-05-08 06:48] LABS: Glucose,Whole Blood 102 mg/dL (75-99)
[2019-05-08] MEDS: INSULIN ASPART (NovoLOG) 100 UNIT/ML VIAL SQ SCH ×3 (06:50→17:21)
[2019-05-08] MEDS ORDERED: PANTOPRAZOLE 40 MG/10 ML VIAL IVP SCH (09:00)
[2019-05-08] MEDS ORDERED: LISINOPRIL 10 MG TAB PO SCH (09:00)
[2019-05-08] MEDS ORDERED: HYDROcodone/APAP 10-325MG 1 EACH TAB PO PRN (11:18)
[2019-05-08 12:11] LABS: Glucose,Whole Blood 81 mg/dL (75-99)
--- NOTE | 2019-05-08 13:33 | P.HPIM ---
History of Present Illness 53-year-old female came in with severe epigastric pain radiating to the back. Patient was diagnosed with colitis in the past for similar pain patient has a multiple episodes of abdominal pains in the past. Patient has elevated liver elevated lipase but but not high enough to say Pancreatitis. Patient is actually admitted for pancreatitis. Patient denied any alcohol abuse history doesn't smoke. Most probably has a gastritis patient will be started on Protonix patient will follow up with gastro-oncology as an outpatient patient was started on diet advance as tolerated is able to tolerate patient will be discharged today patient denied any diarrhea patient's abdominal pain is moderate severity. Patient does have glaucoma at home. His urine is bit abnormal with proteinuria doesn't have any UTI symptoms. Review of Systems REVIEW OF SYSTEMS: CONSTITUTIONAL: No fever, no malaise, no fatigue. HEENT: No recent visual problems or hearing problems. Denied any sore throat. CARDIOVASCULAR: No chest pain, orthopnea, PND, no palpitations, no syncope. PULMONARY: No shortness of breath, no cough, no hemoptysis. GASTROINTESTINAL: As mentioned in HPI NEUROLOGICAL: No headaches, no weakness, no numbness. HEMATOLOGICAL: Denies any bleeding or petechiae. GENITOURINARY: Denies any burning micturition, frequency, or urgency. MUSCULOSKELETAL/RHEUMATOLOGICAL: Denies any joint pain, swelling, or any muscle pain. ENDOCRINE: Denies any polyuria or polydipsia. The rest of the 14-point review of systems is negative. Past Medical History Past Medical History: Diabetes Mellitus, Hyperlipidemia Additional Past Medical History / Comment(s): GESTATIONAL DIABETES, History of Any Multi-Drug Resistant Organisms: None Reported Past Surgical History: Back Surgery, Section, Cholecystectomy, Tubal Ligation Additional Past Surgical History / Comment(s): TUBES TIED, bilateral cataracts Past Anesthesia/Blood Transfusion Reactions: No Reported Reaction Past Psychological History: Anxiety Smoking Status: Current every day smoker Past Alcohol Use History: None Reported Additional Past Alcohol Use History / Comment(s): STARTED SMOKING AT AGE 17 Past Drug Use History: Marijuana - Past Family History Mother Family Medical History: No Reported History Medications and Allergies Home Medications Medication Instructions Recorded Confirmed Type Ertugliflozin Pidolate [Steglatro] 15 mg PO DAILY 12/09/18 05/07/19 History Glimepiride [Amaryl] 4 mg PO BID 12/09/18 05/07/19 History Hydrocodone/Acetaminophen [[place] 1 tab PO TID PRN 12/09/18 05/07/19 History 10-325] metFORMIN HCL [Glucophage] 1,000 mg PO BID 12/09/18 05/07/19 History Lisinopril [Prinivil] 10 mg PO DAILY 05/07/19 05/07/19 History Omeprazole [PriLOSEC] 40 mg PO ARVIN-BILLIEFSVickey #30 capsule. 05/08/19 Rx Allergies Allergy/AdvReac Type Severity Reaction Status Date / Time No Known Allergies Allergy Verified 05/08/19 03:02 Physical Exam Vitals: Vital Signs Temp Pulse Pulse Resp BP BP BP 05/08/19 08:43 97.4 F L 81 12 100/67 05/08/19 03:05 75 18 05/08/19 02:40 97.9 F 75 18 120/72 05/08/19 01:47 74 18 116/70 05/07/19 23:26 16 05/07/19 21:54 97.9 F 87 18 115/77 Pulse Ox 05/08/19 08:43 97 05/08/19 03:05 05/08/19 02:40 98 05/08/19 01:47 98 05/07/19 23:26 05/07/19 21:54 99 Intake and Output 05/07/19 05/08/19 05/08/19 22:59 06:59 14:59 Other: Voiding Method Toilet # Voids 1 1 Weight 78.018 kg PHYSICAL EXAMINATION: GENERAL: The patient is alert and oriented x3, not in any acute distress. Well developed, well nourished. HEENT: Pupils are round and equally reacting to light. EOMI. No scleral icterus. No conjunctival pallor. Normocephalic, atraumatic. No pharyngeal erythema. No thyromegaly. CARDIOVASCULAR: S1 and S2 present. No murmurs, rubs, or gallops. PULMONARY: Chest is clear to auscultation, no wheezing or crackles. ABDOMEN: Soft, nontender, nondistended, normoactive bowel sounds. No palpable organomegaly. MUSCULOSKELETAL: No joint swelling or deformity. EXTREMITIES: No cyanosis, clubbing, or pedal edema. NEUROLOGICAL: Gross neurological examination did not reveal any focal deficits. SKIN: No rashes. Results CBC & Chem 7: 05/07/19 23:35 05/07/19 23:35 Labs: Abnormal Lab Results - Last 24 Hours (Table) 05/07/19 05/07/19 05/07/19 Range/Units 23:30 23:35 23:35 MCV 79.4 L (80.0-100.0) fL Neutrophils # 7.8 H (1.3-7.7) k/uL Glucose 165 H (74-99) mg/dL POC Glucose (mg/dL) (75-99) mg/dL Amylase 151 H (30-110) U/L Lipase 766 H (23-300) U/L Urine Protein Trace H (Negative) Urine Glucose (UA) 4+ H (Negative) Urine Blood Trace H (Negative) Urine Nitrite Positive H (Negative) Ur Leukocyte Esterase Moderate H (Negative) Urine WBC Clumps Rare H (None) /hpf Urine Bacteria Rare H (None) /hpf 05/08/19 Range/Units 06:46 MCV (80.0-100.0) fL Neutrophils # (1.3-7.7) k/uL Glucose (74-99) mg/dL POC Glucose (mg/dL) 102 H (75-99) mg/dL Amylase (30-110) U/L Lipase (23-300) U/L Urine Protein (Negative) Urine Glucose (UA) (Negative) Urine Blood (Negative) Urine Nitrite (Negative) Ur Leukocyte Esterase (Negative) Urine WBC Clumps (None) /hpf Urine Bacteria (None) /hpf Thrombosis Risk Factor Assmnt - Choose All That Apply Any of the Below Risk Factors Present?: Yes Each Factor Represents 1 point: Age 41-60 years, Obesity (BMI >25), Swollen legs (current) Other Risk Factors: No Other congenital or acquired thrombophilia - If yes, enter type in comment: No Thrombosis Risk Factor Assessment Total Risk Factor Score: 3 Thrombosis Risk Factor Assessment Level: Moderate Risk Assessment and Plan Plan: Epigastric abdominal pain probably secondary to gastritis my suspicion is low for pancreatitis, we will advance the diet as tolerated and if she is able to tolerate soft and patient will be discharged today will follow with gastroneurology as an outpatient. Patient will be discharged on Prilosec. -Type 2 diabetes mellitus patient will be resumed on her home regimen will monitor her blood sugars here -Proteinuria, and I was met assistive because of which patient is on lisinopril which will be continued -Hyperlipidemia -Nicotine abuse: Counseling was provided
--- NOTE | 2019-05-08 13:33 | P.DS ---
Providers Date of admission: 05/08/19 00:25 Attending physician: Omega Sumner Primary care physician: Derick Alvarado [facility] Course: Please refer to my HPI for further details Patient Condition at Discharge: Good Plan - Discharge Summary Discharge Rx Participant: Yes New Discharge Prescriptions: New Omeprazole [PriLOSEC] 40 mg PO AC-BRKFST #30 capsule.dr Obrien metFORMIN HCL [Glucophage] 1,000 mg PO BID Hydrocodone/Acetaminophen [[place] 10-325] 1 tab PO TID PRN PRN Reason: Pain Glimepiride [Amaryl] 4 mg PO BID Ertugliflozin Pidolate [Steglatro] 15 mg PO DAILY Lisinopril [Prinivil] 10 mg PO DAILY Discharge Medication List Ertugliflozin Pidolate [Steglatro] 15 mg PO DAILY 12/09/18 [History] Glimepiride [Amaryl] 4 mg PO BID 12/09/18 [History] Hydrocodone/Acetaminophen [[place] 10-325] 1 tab PO TID PRN 12/09/18 [History] metFORMIN HCL [Glucophage] 1,000 mg PO BID 12/09/18 [History] Lisinopril [Prinivil] 10 mg PO DAILY 05/07/19 [History] Omeprazole [PriLOSEC] 40 mg PO AC-BRKFST #30 capsule. 05/08/19 [Rx] Follow up Appointment(s)/Referral(s): Jenny Sepluveda MD [Primary Care Provider] - 3 Days Frank Vicente MD [STAFF PHYSICIAN] - 2 Weeks
[2019-05-08 17:17] LABS: Glucose,Whole Blood 114 mg/dL (75-99)
[2019-05-08 18:09] VITALS: BP 125/75; PULSE 69; RESP 16; TEMP 98.1
[2019-05-09 04:53] LABS: Hemoglobin A1C 7.5 % (4.0-6.0)
[2019-05-09] MEDS ORDERED: PANTOPRAZOLE 40 MG TABLET PO SCH (07:30)
== END 2019-05-08 19:47 | disposition home or self-care (01) ==
LOC: EC 21:33 → UNDOADMIN 05-08 00:25 → 6PED 05-08 00:25 → INTOOBSV 05-08 00:25 → 6PED 05-08 13:38 → UNDODISIN 05-08 19:47
PROVIDERS: ADMIT Hospitalist; ATTEND Hospitalist
DX: R10.13 Epigastric pain (principal); R11.2 Nausea with vomiting, unspecified; R19.7 Diarrhea, unspecified; R74.8 Abnormal levels of other serum enzymes; E11.9 Type 2 diabetes mellitus without complications; E78.00 Pure hypercholesterolemia, unspecified; E78.5 Hyperlipidemia, unspecified; F17.200 Nicotine dependence, unspecified, uncomplicated; F41.9 Anxiety disorder, unspecified; E66.9 Obesity, unspecified; Z68.25 Body mass index [BMI] 25.0-25.9, adult; R22.43 Localized swelling, mass and lump, lower limb, bilateral; R80.9 Proteinuria, unspecified; Z79.84 Long term (current) use of oral hypoglycemic drugs; Z79.899 Other long term (current) drug therapy; Z86.32 Personal history of gestational diabetes; Z90.49 Acquired absence of other specified parts of digestive tract; Z98.51 Tubal ligation status; Z98.42 Cataract extraction status, left eye; Z98.41 Cataract extraction status, right eye; Z87.19 Personal history of other diseases of the digestive system
CPT/HCPCS: 96361 ×3; 96376; 96365; 96375 ×2; 99285; 36415; 80053; 82150; 83605; 83690; 85025; 81001; 83036; 74177; G0378; J2270 ×2; J2405; J0696; C9113; Q9967; 96374

== ENCOUNTER 2019-05-09 23:15 | Emergency (ER) | payer OTHER ==
[2019-05-09 23:24] VITALS: RESP 20; TEMP 98.3
[2019-05-09 23:58] LABS: Basophils % (A) 0 %; Eosinophils # (A) 0.1 k/uL (0-0.7); Eosinophils % (A) 1 %; HCT 38.9 % (34.0-46.0); HGB 13.2 gm/dL (11.4-16.0); Lymphocytes # (A) 1.7 k/uL (1.0-4.8); Lymphocytes % (A) 16 %; MCH 27.4 pg (25.0-35.0); MCV 80.7 fL (80.0-100.0); Mean Platelet Volume 7.5; Monocytes # (A) 0.5 k/uL (0-1.0); Monocytes % (A) 4 %; Neutrophils # (A) 8.1 k/uL (1.3-7.7); Neutrophils % (A) 77 %; Platelet Count 213 k/uL (150-450); RBC 4.82 m/uL (3.80-5.40); RDW 14.3 % (11.5-15.5); WBC 10.5 k/uL (3.8-10.6)
[2019-05-10] MEDS ORDERED: MORPHINE SULFATE 4 MG/ML SYRINGE IVP STA (00:02)
[2019-05-10] MEDS ORDERED: MAG HYDROX/AL HYDROX/SIMETH 30 ML, HYOSCYAMINE ELIXIR 10 ML, CIMETIDINE HCL 300 MG, LID... PO STA ×4 (00:02)
--- NOTE | 2019-05-10 00:02 | ED ---
Abdominal Pain HPI - General Chief Complaint: Abdominal Pain Stated Complaint: Abd pain Time Seen by Provider: 05/09/19 23:35 Source: patient Mode of arrival: EMS Limitations: no limitations - History of Present Illness Initial Comments: Jerrica is a 53-year-old female who was recently admitted to the hospital for abdominal pain. During her admission she was diagnosed with possible early pancreatitis versus gastritis. She was discharged yesterday. Patient states that she is taking her medications as prescribed, she states that yesterday morning she had boiled eggs and toast for breakfast and she is burger for lunch she subsequently developed searing and burning epigastric abdominal pain stabbing through to her back similar to previous episode. Patient reports the pain became intolerable which prompted her to contact EMS for transport back to the hospital. Patient reports her last bowel movement was yesterday it was loose, she had only one bowel movement. There is no blood. Asked why she did not remain compliant with a bland diet patient states that she is too poor to by other food and a cheeseburger was all she had to eat for lunch . - Related Data Home Medications Medication Instructions Recorded Confirmed Ertugliflozin Pidolate [Steglatro] 15 mg PO DAILY 12/09/18 05/09/19 Glimepiride [Amaryl] 4 mg PO BID 12/09/18 05/09/19 Hydrocodone/Acetaminophen [[place] 1 tab PO TID PRN 12/09/18 05/09/19 10-325] metFORMIN HCL [Glucophage] 1,000 mg PO BID 12/09/18 05/09/19 Lisinopril [Prinivil] 10 mg PO DAILY 05/07/19 05/09/19 Previous Rx's Medication Instructions Recorded Omeprazole [PriLOSEC] 40 mg PO AC-BRKFST #30 capsule. 05/08/19 Allergies Allergy/AdvReac Type Severity Reaction Status Date / Time No Known Allergies Allergy Verified 05/09/19 23:26 Review of Systems ROS Statement: Those systems with pertinent positive or pertinent negative responses have been documented in the HPI. ROS Other: All systems not noted in ROS Statement are negative. Past Medical History Past Medical History: Diabetes Mellitus, Hyperlipidemia Additional Past Medical History / Comment(s): GESTATIONAL DIABETES, History of Any Multi-Drug Resistant Organisms: None Reported Past Surgical History: Back Surgery, Section, Cholecystectomy, Tubal Ligation Additional Past Surgical History / Comment(s): TUBES TIED, bilateral cataracts Past Anesthesia/Blood Transfusion Reactions: No Reported Reaction Past Psychological History: Anxiety Smoking Status: Current every day smoker Past Alcohol Use History: None Reported Past Drug Use History: Marijuana - Past Family History Mother Family Medical History: No Reported History General Exam - General Exam Comments Initial Comments: Physical Exam GENERAL: Appears uncomfortable, rolling around in pain HENT: Normocephalic, Atraumatic. EYES: PERRL, EOMI PULMONARY: Unlabored respirations. No audible rales rhonchi or wheezing was noted. CARDIOVASCULAR: There is a regular rate and rhythm without any murmurs gallops or rubs. ABDOMEN: Soft, tender in the epigastrium Non-peritoneal SKIN: Skin is clear with no lesions or rashes and otherwise unremarkable. : Deferred NEUROLOGIC: Patient is alert and oriented x3. Moving all extremities spontaneously MUSCULOSKELETAL: Normal extremities with adequate strength and full range of motion. No lower extremity swelling or edema. No calf tenderness. PSYCHIATRIC: Normal psychiatric evaluation. Limitations: no limitations Course Vital Signs 05/09/19 05/10/19 23:21 02:37 Temperature 98.3 F Pulse Rate 81 82 Respiratory 20 20 Rate Blood Pressure 163/79 98/60 O2 Sat by Pulse 100 97 Oximetry - Reevaluation(s) Reevaluation #1: 05/10/19 01:41 Patient sleeping comfortably, no acute distress Medical Decision Making - Medical Decision Making Patient was seen and evaluated, history obtained from patient and medical reocrd Patient given Morphine and GI cocktail, patient able to sleep comfortably after meds Labs improved from previous Patient with likely gastritis, comfortable with plan for discharge home with dietary modifications - Lab Data Result diagrams: 05/09/19 23:41 05/09/19 23:41 Lab Results 05/09/19 05/09/19 05/09/19 Range/Units 23:41 23:41 23:41 WBC 10.5 (3.8-10.6) k/uL RBC 4.82 (3.80-5.40) m/uL Hgb 13.2 (11.4-16.0) gm/dL Hct 38.9 (34.0-46.0) % MCV 80.7 (80.0-100.0) fL MCH 27.4 (25.0-35.0) pg MCHC 34.0 (31.0-37.0) g/dL RDW 14.3 (11.5-15.5) % Plt Count 213 (150-450) k/uL Neutrophils % 77 % Lymphocytes % 16 % Monocytes % 4 % Eosinophils % 1 % Basophils % 0 % Neutrophils # 8.1 H (1.3-7.7) k/uL Lymphocytes # 1.7 (1.0-4.8) k/uL Monocytes # 0.5 (0-1.0) k/uL Eosinophils # 0.1 (0-0.7) k/uL Basophils # 0.0 (0-0.2) k/uL Sodium 139 (137-145) mmol/L Potassium 3.6 (3.5-5.1) mmol/L Chloride 103 (98-107) mmol/L Carbon Dioxide 24 (22-30) mmol/L Anion Gap 12 mmol/L BUN 14 (7-17) mg/dL Creatinine 0.79 (0.52-1.04) mg/dL Est GFR (CKD-EPI)AfAm >90 (>60 ml/min/1.73 sqM) Est GFR (CKD-EPI)NonAf 88 (>60 ml/min/1.73 sqM) Glucose 132 H (74-99) mg/dL Plasma Lactic Acid Abilio 1.7 (0.7-2.0) mmol/L Calcium 9.5 (8.4-10.2) mg/dL Total Bilirubin 0.3 (0.2-1.3) mg/dL AST 19 (14-36) U/L ALT 20 (9-52) U/L Alkaline Phosphatase 94 (38-126) U/L Total Protein 7.2 (6.3-8.2) g/dL Albumin 4.0 (3.5-5.0) g/dL Lipase 378 H (23-300) U/L Urine Color Urine Appearance (Clear) Urine pH (5.0-8.0) Ur Specific [place] (1.001-1.035) Urine Protein (Negative) Urine Glucose (UA) (Negative) Urine Ketones (Negative) Urine Blood (Negative) Urine Nitrite (Negative) Urine Bilirubin (Negative) Urine Urobilinogen (<2.0) mg/dL Ur Leukocyte Esterase (Negative) Urine RBC (0-5) /hpf Urine WBC (0-5) /hpf Ur Squamous Epith Cells (0-4) /hpf Hyaline Casts (0-2) /lpf Urine Mucus (None) /hpf 05/10/19 Range/Units 02:20 WBC (3.8-10.6) k/uL RBC (3.80-5.40) m/uL Hgb (11.4-16.0) gm/dL Hct (34.0-46.0) % MCV (80.0-100.0) fL MCH (25.0-35.0) pg MCHC (31.0-37.0) g/dL RDW (11.5-15.5) % Plt Count (150-450) k/uL Neutrophils % % Lymphocytes % % Monocytes % % Eosinophils % % Basophils % % Neutrophils # (1.3-7.7) k/uL Lymphocytes # (1.0-4.8) k/uL Monocytes # (0-1.0) k/uL Eosinophils # (0-0.7) k/uL Basophils # (0-0.2) k/uL Sodium (137-145) mmol/L Potassium (3.5-5.1) mmol/L Chloride (98-107) mmol/L Carbon Dioxide (22-30) mmol/L Anion Gap mmol/L BUN (7-17) mg/dL Creatinine (0.52-1.04) mg/dL Est GFR (CKD-EPI)AfAm (>60 ml/min/1.73 sqM) Est GFR (CKD-EPI)NonAf (>60 ml/min/1.73 sqM) Glucose (74-99) mg/dL Plasma Lactic Acid [place]ilio (0.7-2.0) mmol/L Calcium (8.4-10.2) mg/dL Total Bilirubin (0.2-1.3) mg/dL AST (14-36) U/L ALT (9-52) U/L Alkaline Phosphatase (38-126) U/L Total Protein (6.3-8.2) g/dL Albumin (3.5-5.0) g/dL Lipase (23-300) U/L Urine Color Yellow Urine Appearance Clear (Clear) Urine pH 7.0 (5.0-8.0) Ur Specific [place] 1.032 (1.001-1.035) Urine Protein 1+ H (Negative) Urine Glucose (UA) 4+ H (Negative) Urine Ketones 2+ H (Negative) Urine Blood Negative (Negative) Urine Nitrite Negative (Negative) Urine Bilirubin Negative (Negative) Urine Urobilinogen <2.0 (<2.0) mg/dL Ur Leukocyte Esterase Negative (Negative) Urine RBC 2 (0-5) /hpf Urine WBC 1 (0-5) /hpf Ur Squamous Epith Cells <1 (0-4) /hpf Hyaline Casts 1 (0-2) /lpf Urine Mucus Rare H (None) /hpf Disposition Clinical Impression: Abdominal pain Disposition: HOME SELF-CARE Condition: Stable Instructions (If sedation given, give patient instructions): Gastritis (DC) Is patient prescribed a controlled substance at d/c from ED?: No Referrals: Jenny Sepulveda MD [Primary Care Provider] - 1-2 days
[2019-05-10 00:07] LABS: ALT 20 U/L (9-52); AST 19 U/L (14-36); African American GFR (CKD) >90 (>60 ml/min/1.73 sqM); Alkaline Phosphatase 94 U/L (38-126); Anion Gap 12 mmol/L; Blood Urea Nitrogen 14 mg/dL (7-17); Calcium 9.5 mg/dL (8.4-10.2); Carbon Dioxide 24 mmol/L (22-30); Chloride 103 mmol/L (98-107); Glucose 132 mg/dL (74-99); Potassium 3.6 mmol/L (3.5-5.1); Sodium 139 mmol/L (137-145); Total Bilirubin 0.3 mg/dL (0.2-1.3); Total Protein 7.2 g/dL (6.3-8.2)
--- NOTE | 2019-05-10 00:28 | XR ---
EXAMINATION TYPE: XR KUB DATE OF EXAM: 05/10/2019 COMPARISON: 12/09/2018 HISTORY: Epigastric pain TECHNIQUE: 2 views upright FINDINGS: There is no sign of intestinal obstruction or pneumoperitoneum. Fecal pattern is normal. Th ere is lower lumbar spine posterior fusion surgery. There are clips from cholecystectomy. Lung bases are clear. There are no definite pathologic calcifications over the kidneys. IMPRESSION: Nonacute abdomen. No change
[2019-05-10 02:38] VITALS: BP 98/60; PULSE 82
[2019-05-10 02:40] LABS: Appearance,Urine Clear (Clear); Bilirubin,Urine Negative (Negative); Blood,Urine Negative (Negative); Color,Urine Yellow; Glucose,Urine (UA) 4+ (Negative); Hyaline Casts,Urine 1 /lpf (0-2); Leukocyte Esterase,Urine Negative (Negative); Mucus,Urine Rare /hpf; Nitrite,Urine Negative (Negative); Protein,Urine 1+ (Negative); RBC,Urine 2 /hpf (0-5); Specific Gravity,Urine 1.032 (1.001-1.035); Squamous Epithelial Cell,Urine <1 /hpf (0-4); Urobilinogen,Urine <2.0 mg/dL (<2.0); WBC,Urine 1 /hpf (0-5)
[2019-05-10 02:43] LABS: Ketones,Urine 2+ (Negative)
== END 2019-05-10 03:44 | disposition home or self-care (01) ==
LOC: EC 23:15
DX: R10.13 Epigastric pain (principal); M54.9 Dorsalgia, unspecified; F17.200 Nicotine dependence, unspecified, uncomplicated; Z79.84 Long term (current) use of oral hypoglycemic drugs; Z79.899 Other long term (current) drug therapy; Z90.49 Acquired absence of other specified parts of digestive tract
CPT/HCPCS: 36415; 80053; 83605; 83690; 85025; 81001; 74018; 99284; 96374; J2270

== ENCOUNTER 2019-06-21 07:25 | Day surgery (SDC) | payer OTHER ==
[2019-06-19 15:25] VITALS: BMI 25.9
[~2019-06-21 07:25] MED LIST: LACTATED RINGERS 1,000 ML IV SCH; LIDOCAINE 1% 20 ML VIAL (10MG/ML) FOR IV START INTRADERMA PRN
[2019-06-21 08:21] VITALS: RESP 16; TEMP 96.8
[2019-06-21 08:37] LABS: Glucose,Whole Blood 160 mg/dL (75-99)
[2019-06-21] MEDS ORDERED: LIDOCAINE 1% INJ 10MG/ML (20 ML MDV) ONE (08:42)
[2019-06-21] MEDS ORDERED: PROPOFOL 10 MG/ML 20 ML VIAL IV ONE (08:42)
--- NOTE | 2019-06-21 08:50 | P.GSHP ---
History of Present Illness H&P Date: 06/21/19 Chief Complaint: GERD Colitis This a 53-year-old female who presents today for EGD and colonoscopy. Patient's had complaints of GERD. She's also change in bowel habits suggestive of colitis. With diarrhea. Past Medical History Past Medical History: Diabetes Mellitus, GERD/Reflux, Hyperlipidemia, Hypertension, Osteoarthritis (OA) Additional Past Medical History / Comment(s): GESTATIONAL DIABETES, History of Any Multi-Drug Resistant Organisms: None Reported Past Surgical History: Back Surgery, Section, Cholecystectomy, Tubal Ligation Additional Past Surgical History / Comment(s): , bilateral cataracts with implants Past Anesthesia/Blood Transfusion Reactions: No Reported Reaction Smoking Status: Current every day smoker - Past Family History Mother Family Medical History: No Reported History Medications and Allergies Home Medications Medication Instructions Recorded Confirmed Type Ertugliflozin Pidolate [Steglatro] 15 mg PO DAILY 12/09/18 06/21/19 History Glimepiride [Amaryl] 4 mg PO BID 12/09/18 06/21/19 History Hydrocodone/Acetaminophen [[place] 1 tab PO TID PRN 12/09/18 06/21/19 History 10-325] metFORMIN HCL [Glucophage] 1,000 mg PO BID 12/09/18 06/21/19 History Lisinopril [Prinivil] 10 mg PO DAILY 05/07/19 06/21/19 History Omeprazole [PriLOSEC] 40 mg PO NILEFSVickey #30 capsule. 05/08/19 06/21/19 Rx Allergies Allergy/AdvReac Type Severity Reaction Status Date / Time No Known Allergies Allergy Verified 06/21/19 08:22 Surgical - Exam Vital Signs Temp Pulse Resp BP Pulse Ox 96.8 F L 85 16 123/71 99 06/21/19 08:15 06/21/19 08:15 06/21/19 08:15 06/21/19 08:15 06/21/19 08:15 - General well developed, well nourished, no distress - Eyes PERRL - ENT normal pinna - Neck no masses - Respiratory normal expansion - Cardiovascular Rhythm: regular - Abdomen Abdomen: soft, non tender Results - Labs Abnormal Lab Results - Last 24 Hours (Table) 06/21/19 Range/Units 08:16 POC Glucose (mg/dL) 160 H (75-99) mg/dL Assessment and Plan Assessment: GERD Colitis We'll perform EGD and colonoscopy.
--- NOTE | 2019-06-21 09:04 | P.OP ---
Date of Procedure: 06/21/19 Preoperative Diagnosis: GERD Procedure(s) Performed: EGD Colonoscopy Anesthesia: MAC Surgeon: Abdullahi Trevino Pathology: other (Antrum) Condition: stable Disposition: PACU Description of Procedure: The patient's placed on the endoscopy table in the lateral position. She received IV sedation. The gastroscope placed oropharynx passed in the esophagus and stomach. Scope was then placed through the pylorus. The first and second portion of the duodenum appeared normal. Scope summer back the antrum and this appeared mildly inflamed. A biopsies was performed. Scope was retroflexed and remainder stomach appeared normal. There was no significant hiatal hernia. The GE junction was at 40 cm. The distal esophagus. Normal. The proximal esophagus. Normal. Scope was withdrawn for patient. Next digital rectal exam was performed, there was no abnormalities. Flexible colonoscope was then placed patient anus passed throughout the colon. In the transverse colon there was a large amount of liquid stool. The colonoscope could not be advanced due to the large amount stool. The scope was withdrawn. Remainder of the transverse, descending and sigmoid colon appeared normal. Scope summer back the rectum was normal. Scope was withdrawn for patient.
[2019-06-21 09:47] VITALS: BP 134/84; PULSE 73
== END 2019-06-21 10:19 | disposition home or self-care (01) ==
LOC: ORWHC2ENDO 07:25
PROVIDERS: ATTEND Surgery
DX: K21.9 Gastro-esophageal reflux disease without esophagitis (principal); R19.4 Change in bowel habit; Z53.8 Procedure and treatment not carried out for other reasons; E78.5 Hyperlipidemia, unspecified; I10 Essential (primary) hypertension; E11.9 Type 2 diabetes mellitus without complications; M19.90 Unspecified osteoarthritis, unspecified site; Z90.49 Acquired absence of other specified parts of digestive tract; Z98.51 Tubal ligation status; F17.200 Nicotine dependence, unspecified, uncomplicated; Z98.42 Cataract extraction status, left eye; Z98.41 Cataract extraction status, right eye; Z96.1 Presence of intraocular lens; Z86.32 Personal history of gestational diabetes; Z78.0 Asymptomatic menopausal state; Z79.84 Long term (current) use of oral hypoglycemic drugs; Z79.891 Long term (current) use of opiate analgesic; Z79.899 Other long term (current) drug therapy
CPT/HCPCS: 88305; 45378; 43239; J2001; J2704

== ENCOUNTER 2019-07-15 17:08 | Emergency (ER) | payer OTHER ==
[2019-07-15] MEDS ORDERED: SODIUM CHLORIDE 0.9% 1,000 ML IV STA ×2 (17:49)
[2019-07-15] MEDS ORDERED: HYDROmorphone 0.5 MG/0.5 ML SYRINGE IVP STA (17:49)
[2019-07-15] MEDS ORDERED: SODIUM CHLORIDE 0.9% 500 ML 500 ML IV STA (17:49)
[2019-07-15] MEDS ORDERED: ONDANSETRON 4 MG/2 ML VIAL IVP STA (17:49)
[2019-07-15 18:43] LABS: Basophils % (A) 0 %; Eosinophils % (A) 0 %; HCT 43.6 % (34.0-46.0); HGB 14.5 gm/dL (11.4-16.0); Lymphocytes # (A) 0.9 k/uL (1.0-4.8); Lymphocytes % (A) 6 %; MCH 27.8 pg (25.0-35.0); MCHC 33.2 g/dL (31.0-37.0); MCV 83.6 fL (80.0-100.0); Mean Platelet Volume 7.9; Monocytes # (A) 0.3 k/uL (0-1.0); Monocytes % (A) 2 %; Neutrophils # (A) 13.7 k/uL (1.3-7.7); Neutrophils % (A) 92 %; Platelet Count 235 k/uL (150-450); RBC 5.21 m/uL (3.80-5.40); RDW 13.9 % (11.5-15.5); WBC 14.9 k/uL (3.8-10.6)
[2019-07-15 18:56] LABS: ALT 29 U/L (9-52); AST 22 U/L (14-36); African American GFR (CKD) >90 (>60 ml/min/1.73 sqM); Albumin 4.6 g/dL (3.5-5.0); Alkaline Phosphatase 102 U/L (38-126); Amylase 63 U/L (30-110); Anion Gap 15 mmol/L; Blood Urea Nitrogen 15 mg/dL (7-17); Calcium 10.1 mg/dL (8.4-10.2); Carbon Dioxide 22 mmol/L (22-30); Chloride 106 mmol/L (98-107); Glucose 219 mg/dL (74-99); Non-African American GFR(CKD) 90 (>60 ml/min/1.73 sqM); Potassium 3.9 mmol/L (3.5-5.1); Sodium 143 mmol/L (137-145); Total Bilirubin 0.6 mg/dL (0.2-1.3); Total Protein 7.9 g/dL (6.3-8.2)
[2019-07-15 19:11] VITALS: BP 141/80
[2019-07-15 19:31] LABS: Glucose,Whole Blood 164 mg/dL (75-99)
--- NOTE | 2019-07-15 20:00 | ED ---
Abdominal Pain HPI <Saranya Turner P - Last Filed: 07/15/19 20:23> - General Source: patient, EMS Mode of arrival: EMS Limitations: no limitations <Liza Ovalles - Last Filed: 07/16/19 09:08> - General Chief Complaint: Abdominal Pain Stated Complaint: Abd Pain Time Seen by Provider: 07/15/19 17:13 - History of Present Illness Initial Comments: 53-year-old female to history of diabetes, pancreatitis presenting today for chief complaint of nausea vomiting diarrhea 3 hours. Patient states approx imately 3 hours ago she began developing nausea and vomiting and having profuse diarrhea. Patient denies any hematemesis melena hematochezia or fevers. Patient states she was feeling fine prior to this. Patient denies any specific sick contacts or concern for food contamination. Patient states she has LUQ pain. Denies severe pain, states it some what radiates to back. Denies chest pain, SOB. Patient denies any any other complaints. Upon arrival patient appears nontoxic. HR elevated (Liza Ovalles) - Related Data Home Medications Medication Instructions Recorded Confirmed Ertugliflozin Pidolate [Steglatro] 15 mg PO DAILY 12/09/18 06/21/19 Glimepiride [Amaryl] 4 mg PO BID 12/09/18 06/21/19 Hydrocodone/Acetaminophen [[place] 1 tab PO TID PRN 12/09/18 06/21/19 10-325] metFORMIN HCL [Glucophage] 1,000 mg PO BID 12/09/18 06/21/19 Lisinopril [Prinivil] 10 mg PO DAILY 05/07/19 06/21/19 Previous Rx's Medication Instructions Recorded Omeprazole [PriLOSEC] 40 mg PO ARVIN-BRKFST #30 capsule. 05/08/19 Allergies Allergy/AdvReac Type Severity Reaction Status Date / Time No Known Allergies Allergy Verified 06/21/19 08:22 Review of Systems ROS Other: All systems not noted in ROS Statement are negative. <Saranya Turner - Last Filed: 07/15/19 20:23> ROS Other: All systems not noted in ROS Statement are negative. <Liza Ovalles - Last Filed: 07/16/19 09:08> ROS Statement: Those systems with pertinent positive or pertinent negative responses have been documented in the HPI. Past Medical History Past Medical History: Diabetes Mellitus, GERD/Reflux, Hyperlipidemia, Hypertension, Osteoarthritis (OA) Additional Past Medical History / Comment(s): GESTATIONAL DIABETES, History of Any Multi-Drug Resistant Organisms: None Reported Past Surgical History: Back Surgery, Section, Cholecystectomy, Tubal Ligation Additional Past Surgical History / Comment(s): , bilateral cataracts with implants Past Anesthesia/Blood Transfusion Reactions: No Reported Reaction Past Psychological History: Anxiety, Depression, Panic Disorder Smoking Status: Current every day smoker Past Alcohol Use History: None Reported Past Drug Use History: Marijuana - Past Family History Mother Family Medical History: No Reported History <Liza Ovalles - Last Filed: 07/16/19 09:08> General Exam Limitations: no limitations <Liza Ovalles - Last Filed: 07/16/19 09:08> - General Exam Comments Initial Comments: General: The patient is awake and alert, in no distress Eye: Pupils are equal, round and reactive to light, extra-ocular movements are intact. No nystagmus. There is normal conjunctiva bilaterally. No signs of icterus. Ears, nose, mouth and throat: There are moist mucous membranes and no oral lesions. Neck: The neck is supple, there is no tenderness or JVD. Cardiovascular: There is a regular rate and rhythm. No murmur, rub or gallop is appreciated. Respiratory: Lungs are clear to auscultation, respirations are non-labored, breath sounds are equal. No wheezes, stridor, rales, or rhonchi. Gastrointestinal: Soft, non-distended, mild tenderness to palpation of the epigastric and LUQ abdomen, remaining abdomen in nontender and without masses or organomegaly noted. There is no rebound or guarding present. Musculoskeletal: Normal ROM, no tenderness. Strength 5/5. Sensation intact. Pulses equal bilaterally 2+. Neurological: A&O x 3. CN II-XII intact grossly, There are no obvious motor or sensory deficits. Coordination appears grossly intact. Speech is normal. Skin: Skin is warm and dry and no rashes or lesions are noted. Psychiatric: Cooperative, appropriate mood & affect, normal judgment. (Liza Ovalles) Course Vital Signs 07/15/19 07/15/19 07/15/19 17:18 19:09 20:43 Temperature 98.3 F 98.0 F Pulse Rate 111 H 102 H 100 Respiratory 18 18 16 Rate Blood Pressure 148/74 141/80 141/80 O2 Sat by Pulse 100 100 99 Oximetry Medical Decision Making - Lab Data Result diagrams: 07/15/19 18:10 07/15/19 18:10 <Saranay Turner - Last Filed: 07/15/19 20:23> - Lab Data Result diagrams: 07/15/19 18:10 07/15/19 18:10 <Liza Ovalles - Last Filed: 07/16/19 09:08> - Medical Decision Making 53yo female presenting today for cc of N/V/D. Patient has benign abdominal exam with minimal tenderness. Hx of pancreatitis. Lipase WNL. Labs reveal mild leukocytosis otherwise no acute findings. Abdominal exam benign. Symptoms controlled in ED. Patient given IVF. Anion gap most likely due to emesis, mildly elevated, glucose < 200. Ketone in urine suspected to be from starvation. Patient case discussed with attending who is agreeable to discharge and PCP f/u. Return parameters discussed with patient who verbalized understanding. (Liza Ovalles) - Lab Data Lab Results 07/15/19 07/15/19 07/15/19 Range/Units 18:10 18:10 19:30 WBC 14.9 H (3.8-10.6) k/uL RBC 5.21 (3.80-5.40) m/uL Hgb 14.5 (11.4-16.0) gm/dL Hct 43.6 (34.0-46.0) % MCV 83.6 (80.0-100.0) fL MCH 27.8 (25.0-35.0) pg MCHC 33.2 (31.0-37.0) g/dL RDW 13.9 (11.5-15.5) % Plt Count 235 (150-450) k/uL Neutrophils % 92 % Lymphocytes % 6 % Monocytes % 2 % Eosinophils % 0 % Basophils % 0 % Neutrophils # 13.7 H (1.3-7.7) k/uL Lymphocytes # 0.9 L (1.0-4.8) k/uL Monocytes # 0.3 (0-1.0) k/uL Eosinophils # 0.0 (0-0.7) k/uL Basophils # 0.0 (0-0.2) k/uL Sodium 143 (137-145) mmol/L Potassium 3.9 (3.5-5.1) mmol/L Chloride 106 (98-107) mmol/L Carbon Dioxide 22 (22-30) mmol/L Anion Gap 15 mmol/L BUN 15 (7-17) mg/dL Creatinine 0.77 (0.52-1.04) mg/dL Est GFR (CKD-EPI)AfAm >90 (>60 ml/min/1.73 sqM) Est GFR (CKD-EPI)NonAf 90 (>60 ml/min/1.73 sqM) Glucose 219 H (74-99) mg/dL POC Glucose (mg/dL) 164 H (75-99) mg/dL POC Glu Whipped Topping Finisher ID Shira Cesar Calcium 10.1 (8.4-10.2) mg/dL Total Bilirubin 0.6 (0.2-1.3) mg/dL AST 22 (14-36) U/L ALT 29 (9-52) U/L Alkaline Phosphatase 102 (38-126) U/L Total Protein 7.9 (6.3-8.2) g/dL Albumin 4.6 (3.5-5.0) g/dL Amylase 63 (30-110) U/L Lipase 92 (23-300) U/L Urine Color Urine Appearance (Clear) Urine pH (5.0-8.0) Ur Specific [place] (1.001-1.035) Urine Protein (Negative) Urine Glucose (UA) (Negative) Urine Ketones (Negative) Urine Blood (Negative) Urine Nitrite (Negative) Urine Bilirubin (Negative) Urine Urobilinogen (<2.0) mg/dL Ur Leukocyte Esterase (Negative) 07/15/19 Range/Units 20:14 WBC (3.8-10.6) k/uL RBC (3.80-5.40) m/uL Hgb (11.4-16.0) gm/dL Hct (34.0-46.0) % MCV (80.0-100.0) fL MCH (25.0-35.0) pg MCHC (31.0-37.0) g/dL RDW (11.5-15.5) % Plt Count (150-450) k/uL Neutrophils % % Lymphocytes % % Monocytes % % Eosinophils % % Basophils % % Neutrophils # (1.3-7.7) k/uL Lymphocytes # (1.0-4.8) k/uL Monocytes # (0-1.0) k/uL Eosinophils # (0-0.7) k/uL Basophils # (0-0.2) k/uL Sodium (137-145) mmol/L Potassium (3.5-5.1) mmol/L Chloride (98-107) mmol/L Carbon Dioxide (22-30) mmol/L Anion Gap mmol/L BUN (7-17) mg/dL Creatinine (0.52-1.04) mg/dL Est GFR (CKD-EPI)AfAm (>60 ml/min/1.73 sqM) Est GFR (CKD-EPI)NonAf (>60 ml/min/1.73 sqM) Glucose (74-99) mg/dL POC Glucose (mg/dL) (75-99) mg/dL POC Glu Whipped Topping Finisher ID Calcium (8.4-10.2) mg/dL Total Bilirubin (0.2-1.3) mg/dL AST (14-36) U/L ALT (9-52) U/L Alkaline Phosphatase (38-126) U/L Total Protein (6.3-8.2) g/dL Albumin (3.5-5.0) g/dL Amylase (30-110) U/L Lipase (23-300) U/L Urine Color Light Yellow Urine Appearance Clear (Clear) Urine pH 6.0 (5.0-8.0) Ur Specific [place] 1.016 (1.001-1.035) Urine Protein Trace H (Negative) Urine Glucose (UA) 4+ H (Negative) Urine Ketones 3+ H (Negative) Urine Blood Negative (Negative) Urine Nitrite Negative (Negative) Urine Bilirubin Negative (Negative) Urine Urobilinogen <2.0 (<2.0) mg/dL Ur Leukocyte Esterase Negative (Negative) Disposition Is patient prescribed a controlled substance at d/c from ED?: No <Saranya Turner P - Last Filed: 07/15/19 20:23> Is patient prescribed a controlled substance at d/c from ED?: No Time of Disposition: 20:16 <Liza Ovalles - Last Filed: 07/16/19 09:08> Clinical Impression: Nausea & vomiting, Diarrhea Disposition: HOME SELF-CARE Condition: Good Instructions (If sedation given, give patient instructions): Acute Nausea and Vomiting (ED) Additional Instructions: Please use medication as discussed. Please follow-up with family doctor in the next 2 days. Please return to emergency room if the symptoms increase or worsen or for any other concerns. Referrals: Jenny Sepulveda MD [Primary Care Provider] - 1-2 days
[2019-07-15 20:18] LABS: Appearance,Urine Clear (Clear); Bilirubin,Urine Negative (Negative); Blood,Urine Negative (Negative); Color,Urine Light Yellow; Glucose,Urine (UA) 4+ (Negative); Leukocyte Esterase,Urine Negative (Negative); Nitrite,Urine Negative (Negative); Protein,Urine Trace (Negative); Specific Gravity,Urine 1.016 (1.001-1.035); Urobilinogen,Urine <2.0 mg/dL (<2.0)
--- NOTE | 2019-07-15 20:21 | XR ---
EXAMINATION TYPE: XR KUB DATE OF EXAM: 07/15/2019 7:38 PM CLINICAL HISTORY: Abdominal pain, vomiting TECHNIQUE: Single upright KUB image of the abdomen is obtained. COMPARISON: None. FINDINGS: Scattered gas is seen in non-distended small bowel loops. Gas and fecal material is seen in non-distended colon. There is no pneumoperitoneum. Pelvic phleboliths. Right upper quadrant clips li chantelle from prior cholecystectomy. L4-S1 posterior fusion hardware and laminectomy has been performed. IMPRESSION: Overall nonobstructive bowel gas pattern.
[2019-07-15 20:23] LABS: Ketones,Urine 3+ (Negative)
[2019-07-15 20:44] VITALS: PULSE 100; RESP 16; TEMP 98
== END 2019-07-15 20:44 | disposition home or self-care (01) ==
LOC: EC 17:08
DX: R19.7 Diarrhea, unspecified (principal); R11.2 Nausea with vomiting, unspecified; D72.829 Elevated white blood cell count, unspecified; R10.12 Left upper quadrant pain; E11.65 Type 2 diabetes mellitus with hyperglycemia; R82.4 Acetonuria; I10 Essential (primary) hypertension; F17.200 Nicotine dependence, unspecified, uncomplicated; Z79.84 Long term (current) use of oral hypoglycemic drugs; Z79.899 Other long term (current) drug therapy; Z87.19 Personal history of other diseases of the digestive system; Z90.49 Acquired absence of other specified parts of digestive tract
CPT/HCPCS: 36415; 80053; 82150; 83690; 85025; 81003; 74018; 99284; 96374; 96375; 96361 ×2; J2405; J1170

== ENCOUNTER 2019-07-18 08:32 | Observation (INO) | payer OTHER ==
[2019-07-18] MEDS ORDERED: SODIUM CHLORIDE 0.9% 500 ML 500 ML IV STA (08:45)
[2019-07-18] MEDS ORDERED: ONDANSETRON 4 MG/2 ML VIAL IVP STA (08:46)
[2019-07-18] MEDS ORDERED: MORPHINE SULFATE 4 MG/ML SYRINGE IVP STA (08:46)
[2019-07-18 09:22] LABS: Appearance,Urine Clear (Clear); Bacteria,Urine Rare /hpf; Bilirubin,Urine Negative (Negative); Blood,Urine Small (Negative); Color,Urine Yellow; Glucose,Urine (UA) 4+ (Negative); Hyaline Casts,Urine 3 /lpf (0-2); Leukocyte Esterase,Urine Small (Negative); Mucus,Urine Rare /hpf; Nitrite,Urine Negative (Negative); Protein,Urine 2+ (Negative); RBC,Urine 6 /hpf (0-5); Specific Gravity,Urine 1.031 (1.001-1.035); Squamous Epithelial Cell,Urine <1 /hpf (0-4); WBC,Urine 34 /hpf (0-5)
[2019-07-18 09:22] LABS: Basophils % (A) 0 %; Eosinophils # (A) 0.1 k/uL (0-0.7); Eosinophils % (A) 0 %; HCT 41.8 % (34.0-46.0); HGB 14.5 gm/dL (11.4-16.0); Lymphocytes # (A) 1.4 k/uL (1.0-4.8); Lymphocytes % (A) 11 %; MCH 28.4 pg (25.0-35.0); MCHC 34.8 g/dL (31.0-37.0); MCV 81.8 fL (80.0-100.0); Mean Platelet Volume 8.3; Monocytes # (A) 0.6 k/uL (0-1.0); Monocytes % (A) 5 %; Neutrophils # (A) 10.7 k/uL (1.3-7.7); Neutrophils % (A) 83 %; Platelet Count 252 k/uL (150-450); RBC 5.12 m/uL (3.80-5.40); RDW 13.6 % (11.5-15.5)
[2019-07-18 09:23] LABS: INR 0.9 (<1.2); Partial Thromboplastin Time 23.6 sec (22.0-30.0)
[2019-07-18 09:27] LABS: ALT 26 U/L (9-52); AST 21 U/L (14-36); African American GFR (CKD) >90 (>60 ml/min/1.73 sqM); Albumin 4.1 g/dL (3.5-5.0); Alkaline Phosphatase 95 U/L (38-126); Amylase 178 U/L (30-110); Anion Gap 15 mmol/L; Blood Urea Nitrogen 24 mg/dL (7-17); Calcium 9.4 mg/dL (8.4-10.2); Carbon Dioxide 23 mmol/L (22-30); Chloride 99 mmol/L (98-107); Glucose 217 mg/dL (74-99); Magnesium 1.9 mg/dL (1.6-2.3); Non-African American GFR(CKD) 81 (>60 ml/min/1.73 sqM); Potassium 3.3 mmol/L (3.5-5.1); Sodium 137 mmol/L (137-145); Total Protein 7.3 g/dL (6.3-8.2)
[2019-07-18 09:28] LABS: Ketones,Urine 3+ (Negative)
--- NOTE | 2019-07-18 09:43 | XR ---
EXAMINATION TYPE: XR chest 2V DATE OF EXAM: 07/18/2019 COMPARISON: 08/11/2014 HISTORY: Chest pain TECHNIQUE: Frontal and lateral views of the chest are obtained. FINDINGS: There is no focal air space opacity, pleural effusion, or pneumothorax seen. The cardiac silhouette size is within normal limits. The osseous structures are intact. Cholecystectomy clips a re seen. IMPRESSION: No acute cardiopulmonary process.
--- NOTE | 2019-07-18 09:52 | ED ---
General Adult HPI - General Source: patient, EMS, RN notes reviewed Mode of arrival: EMS Limitations: no limitations <Mohamud Prakash - Last Filed: 07/18/19 11:11> <Mikaela Davila - Last Filed: 07/18/19 23:40> - General Chief complaint: Recheck/Abnormal Lab/Rx Stated complaint: Vomiting Time Seen by Provider: 07/18/19 08:34 - History of Present Illness Initial comments: 53-year-old female with a past medical history of diabetes mellitus, GERD, hyperlipidemia, hypertension, pancreatitis presents to the emergency department for a chief complaint of epigastric pain. Patient states that she has had epigastric pain since Wednesday which is about 4 days. States she has been nauseous and vomiting. States she did have diarrhea but that resolved yesterday. States this feels like pancreatitis she has had in the past. she does have a history of cholecystectomy. Patient has no other complaints at this time including shortness of breath, chest pain, abdominal pain, nausea or vomiting, headache, or visual changes. (Mohamud Prakash) - Related Data Home Medications Medication Instructions Recorded Confirmed Ertugliflozin Pidolate [Steglatro] 15 mg PO DAILY 12/09/18 07/18/19 Glimepiride [Amaryl] 4 mg PO BID 12/09/18 07/18/19 Hydrocodone/Acetaminophen [[place] 1 tab PO QID PRN 12/09/18 07/18/19 10-325] metFORMIN HCL [Glucophage] 1,000 mg PO BID 12/09/18 07/18/19 Lisinopril [Zestril] 2.5 mg PO DAILY 07/18/19 07/18/19 Allergies Allergy/AdvReac Type Severity Reaction Status Date / Time No Known Allergies Allergy Verified 07/18/19 10:53 Review of Systems ROS Other: All systems not noted in ROS Statement are negative. <Mohamud Prakash - Last Filed: 07/18/19 11:11> ROS Other: All systems not noted in ROS Statement are negative. <Mikaela Davila - Last Filed: 07/18/19 23:40> ROS Statement: Those systems with pertinent positive or pertinent negative responses have been documented in the HPI. Past Medical History Past Medical History: No Reported History, Diabetes Mellitus, GERD/Reflux, Hyperlipidemia, Hypertension, Osteoarthritis (OA) Additional Past Medical History / Comment(s): GESTATIONAL DIABETES, History of Any Multi-Drug Resistant Organisms: None Reported Past Surgical History: Back Surgery, Section, Cholecystectomy, Tubal Ligation Additional Past Surgical History / Comment(s): , bilateral cataracts with implants Past Anesthesia/Blood Transfusion Reactions: No Reported Reaction Past Psychological History: Anxiety, Depression, Panic Disorder Smoking Status: Current every day smoker Past Alcohol Use History: None Reported Past Drug Use History: Marijuana - Past Family History Mother Family Medical History: No Reported History <Mohamud Prakash P - Last Filed: 07/18/19 11:11> General Exam Limitations: no limitations General appearance: alert, in no apparent distress Head exam: Present: atraumatic, normocephalic, normal inspection Eye exam: Present: normal appearance, PERRL, EOMI. Absent: scleral icterus, conjunctival injection, periorbital swelling ENT exam: Present: normal exam, mucous membranes moist Neck exam: Present: normal inspection, full ROM. Absent: tenderness, meningismus, lymphadenopathy Respiratory exam: Present: normal lung sounds bilaterally. Absent: respiratory distress, wheezes, rales, rhonchi, stridor Cardiovascular Exam: Present: regular rate, normal rhythm, normal heart sounds. Absent: systolic murmur, diastolic murmur, rubs, gallop, clicks GI/Abdominal exam: Present: soft, tenderness (mild epigastric tenderness), normal bowel sounds. Absent: distended, guarding, rebound, rigid Neurological exam: Present: alert <Mohamud Prakash P - Last Filed: 07/18/19 11:11> Course Vital Signs 07/18/19 07/18/19 07/18/19 08:34 10:24 12:15 Temperature 97.9 F 98.5 F Pulse Rate 107 H 94 100 Pulse Rate [ Pulse Oximetery ] Respiratory 18 16 17 Rate Blood Pressure 167/85 157/87 109/71 Blood Pressure [Right Arm] O2 Sat by Pulse 100 97 97 Oximetry 07/18/19 07/18/19 07/18/19 13:55 14:15 15:02 Temperature 97.6 F Pulse Rate 98 101 H Pulse Rate [ 106 H Pulse Oximetery ] Respiratory 18 20 15 Rate Blood Pressure 148/88 161/88 Blood Pressure 118/77 [Right Arm] O2 Sat by Pulse 96 99 99 Oximetry 07/18/19 15:10 Temperature 98.7 F Pulse Rate 98 Pulse Rate [ Pulse Oximetery ] Respiratory 17 Rate Blood Pressure 124/71 Blood Pressure [Right Arm] O2 Sat by Pulse 96 Oximetry EKG Findings - EKG Comments: EKG Findings:: Sinus tachycardia, ventricular rate 112, ME 163, QTc 464 <Mohamud Prakash - Last Filed: 07/18/19 11:11> Medical Decision Making - Lab Data Result diagrams: 07/18/19 09:00 07/18/19 09:00 <Mohamud Prakash - Last Filed: 07/18/19 11:11> - Lab Data Result diagrams: 07/18/19 09:00 07/18/19 09:00 <Mikaela Davila - Last Filed: 07/18/19 23:40> - Medical Decision Making 53-year-old female with a past medical history of a cystectomy, pancreatitis presents for abdominal pain. Pain is mostly in the upper abdomen. She is also having nausea vomiting. She did have diarrhea however that resolved yesterday. This is been ongoing for about 4 days. States the pain is getting worse. She was seen in the emergency department at that time, discharged home. Vitals stable on presentation hour patient is mildly tachycardic, likely secondary to dehydration. CBC shows a white count of 13 which is likely secondary to vomiting. CMP does show evidence of dehydration with the BUN to creatinine ratio of 28.5. There are also 3+ ketones and patient's urine which is also likely secondary to dehydration. Amylase and lipase are only minimally elevated. Chest x-ray shows no acute cardiopulmonary process. Patient was given antiemetics and did have improvement symptoms. She was given several different pain medications and did not have improvement of pain. Given patient's degree of dehydration she'll be admitted for intractable abdominal pain as well as dehydration. Possible urinary tract infection however patient does not have any dysuria. No fevers. At this point we will wait for culture results to start antibiotics. (Mohamud Prakash) I was available for consultation in the emergency department. The history and physical exam were done by the midlevel provider. I was consulted for this patients care. I reviewed the case with the midlevel provider and based on their presentation of the patient, I agree with the assessment, medical decision making and plan of care as documented. I evaluated the patient and agreed to admission. Patient admitted to Dr. Briseno. Chart was dictated using [employer] dictation software. Attempts were made to correct any dictation errors however some typographical errors may persist. (Mikaela Davila) - Lab Data Lab Results 07/18/19 07/18/19 07/18/19 Range/Units 08:45 09:00 09:00 WBC 13.0 H (3.8-10.6) k/uL RBC 5.12 (3.80-5.40) m/uL Hgb 14.5 (11.4-16.0) gm/dL Hct 41.8 (34.0-46.0) % MCV 81.8 (80.0-100.0) fL MCH 28.4 (25.0-35.0) pg MCHC 34.8 (31.0-37.0) g/dL RDW 13.6 (11.5-15.5) % Plt Count 252 (150-450) k/uL Neutrophils % 83 % Lymphocytes % 11 % Monocytes % 5 % Eosinophils % 0 % Basophils % 0 % Neutrophils # 10.7 H (1.3-7.7) k/uL Lymphocytes # 1.4 (1.0-4.8) k/uL Monocytes # 0.6 (0-1.0) k/uL Eosinophils # 0.1 (0-0.7) k/uL Basophils # 0.0 (0-0.2) k/uL PT (9.0-12.0) sec INR (<1.2) APTT (22.0-30.0) sec Sodium 137 (137-145) mmol/L Potassium 3.3 L (3.5-5.1) mmol/L Chloride 99 (98-107) mmol/L Carbon Dioxide 23 (22-30) mmol/L Anion Gap 15 mmol/L BUN 24 H (7-17) mg/dL Creatinine 0.84 (0.52-1.04) mg/dL Est GFR (CKD-EPI)AfAm >90 (>60 ml/min/1.73 sqM) Est GFR (CKD-EPI)NonAf 81 (>60 ml/min/1.73 sqM) Glucose 217 H (74-99) mg/dL Calcium 9.4 (8.4-10.2) mg/dL Magnesium 1.9 (1.6-2.3) mg/dL Total Bilirubin 1.0 (0.2-1.3) mg/dL AST 21 (14-36) U/L ALT 26 (9-52) U/L Alkaline Phosphatase 95 (38-126) U/L Troponin I (0.000-0.034) ng/mL Total Protein 7.3 (6.3-8.2) g/dL Albumin 4.1 (3.5-5.0) g/dL Amylase 178 H (30-110) U/L Lipase 343 H (23-300) U/L Urine Color Yellow Urine Appearance Clear (Clear) Urine pH 6.0 (5.0-8.0) Ur Specific [place] 1.031 (1.001-1.035) Urine Protein 2+ H (Negative) Urine Glucose (UA) 4+ H (Negative) Urine Ketones 3+ H (Negative) Urine Blood Small H (Negative) Urine Nitrite Negative (Negative) Urine Bilirubin Negative (Negative) Urine Urobilinogen 2.0 (<2.0) mg/dL Ur Leukocyte Esterase Small H (Negative) Urine RBC 6 H (0-5) /hpf Urine WBC 34 H (0-5) /hpf Ur Squamous Epith Cells <1 (0-4) /hpf Urine Bacteria Rare H (None) /hpf Hyaline Casts 3 H (0-2) /lpf Urine Mucus Rare H (None) /hpf 07/18/19 07/18/19 Range/Units 09:00 09:00 WBC (3.8-10.6) k/uL RBC (3.80-5.40) m/uL Hgb (11.4-16.0) gm/dL Hct (34.0-46.0) % MCV (80.0-100.0) fL MCH (25.0-35.0) pg MCHC (31.0-37.0) g/dL RDW (11.5-15.5) % Plt Count (150-450) k/uL Neutrophils % % Lymphocytes % % Monocytes % % Eosinophils % % Basophils % % Neutrophils # (1.3-7.7) k/uL Lymphocytes # (1.0-4.8) k/uL Monocytes # (0-1.0) k/uL Eosinophils # (0-0.7) k/uL Basophils # (0-0.2) k/uL PT 10.0 (9.0-12.0) sec INR 0.9 (<1.2) APTT 23.6 (22.0-30.0) sec Sodium (137-145) mmol/L Potassium (3.5-5.1) mmol/L Chloride (98-107) mmol/L Carbon Dioxide (22-30) mmol/L Anion Gap mmol/L BUN (7-17) mg/dL Creatinine (0.52-1.04) mg/dL Est GFR (CKD-EPI)AfAm (>60 ml/min/1.73 sqM) Est GFR (CKD-EPI)NonAf (>60 ml/min/1.73 sqM) Glucose (74-99) mg/dL Calcium (8.4-10.2) mg/dL Magnesium (1.6-2.3) mg/dL Total Bilirubin (0.2-1.3) mg/dL AST (14-36) U/L ALT (9-52) U/L Alkaline Phosphatase (38-126) U/L Troponin I <0.012 (0.000-0.034) ng/mL Total Protein (6.3-8.2) g/dL Albumin (3.5-5.0) g/dL Amylase (30-110) U/L Lipase (23-300) U/L Urine Color Urine Appearance (Clear) Urine pH (5.0-8.0) Ur Specific [place] (1.001-1.035) Urine Protein (Negative) Urine Glucose (UA) (Negative) Urine Ketones (Negative) Urine Blood (Negative) Urine Nitrite (Negative) Urine Bilirubin (Negative) Urine Urobilinogen (<2.0) mg/dL Ur Leukocyte Esterase (Negative) Urine RBC (0-5) /hpf Urine WBC (0-5) /hpf Ur Squamous Epith Cells (0-4) /hpf Urine Bacteria (None) /hpf Hyaline Casts (0-2) /lpf Urine Mucus (None) /hpf Disposition Is patient prescribed a controlled substance at d/c from ED?: No Time of Disposition: 11:13 <Mohamud Prakash P - Last Filed: 07/18/19 11:11> <Mikaela Davila - Last Filed: 07/18/19 23:40> Clinical Impression: Dehydration, Intractable abdominal pain Disposition: ADMITTED IP TO THIS HOSP Condition: Fair
[2019-07-18] MEDS ORDERED: KETOROLAC 30 MG/ML 1 ML VIAL IVP STA (10:18)
[2019-07-18] MEDS ORDERED: FAMOTIDINE 20 MG/2 ML VIAL IV STA (10:23)
[2019-07-18] MEDS ORDERED: MAG HYDROX/AL HYDROX/SIMETH 30 ML, HYOSCYAMINE ELIXIR 10 ML, LIDOCAINE VISCOUS 2% 10 ML PO STA ×3 (10:23)
[2019-07-18] MEDS ORDERED: KETOROLAC 30 MG/ML 1 ML VIAL IVP PRN (11:15)
[2019-07-18] MEDS ORDERED: HYDROmorphone 0.5 MG/0.5 ML SYRINGE IVP PRN (11:15)
[2019-07-18] MEDS ORDERED: NALOXONE 0.4 MG/ML 1 ML VIAL IV PRN (11:15)
[2019-07-18] MEDS: SODIUM CHLORIDE 0.9% 1,000 ML IV SCH ×2 (11:29→21:09)
[2019-07-18] MEDS ORDERED: INFLUENZA VACCINE (6 MOS+) 60 MCG/0.5 ML SYRINGE IM ONE (13:55)
--- NOTE | 2019-07-18 13:57 | P.HPIM ---
History of Present Illness This is a pleasant 53 years old female with past medical history of gastroesophageal reflux disease, diabetes mellitus, hypertension, hyperlipidemia, osteoarthritis, chronic neck and back pain and she follow up with Dr. Godwin. Presents because of intractable nausea vomiting. Patient states that since Wednesday she started having intractable nausea vomiting associated with diarrhea, however her diarrhea stopped yesterday but her nausea vomiting persist despite she's been in the emergency room last Wednesday and she's been treated symptomatically and discharged home however she has no improvement so she decided to come to the hospital, associated with epigastric discomfort rather than pain radiating up to the mid chest, associated with runny nose and cough and with clear phlegm and central chest pain with coughing only, also patient has some sore throat. She denies dyspnea. Also she has generalized body aches and feeling fatigued. She smokes about 1-2 cigarettes per day as well as marijuana, no history of alcohol. On admission her vitals looks stable. Labs showed leukocytosis of 13 K, compared to baseline of 8.5-10.5. Mildly low potassium at 3.3, magnesium 1.9, sugar 217, creatinine 0.8, lipase 344, amylase 178. Chest x-ray no acute process In the emergency room patient was started on normal saline at 1.2 mL/h, cut antiacids and morphine Review of Systems CONSTITUTIONAL: No fever, no malaise, no fatigue. HEENT: No recent visual problems or hearing problems. Denied any sore throat. CARDIOVASCULAR: No orthopnea, PND, no palpitations, no syncope. PULMONARY: No shortness of breath, no cough, no hemoptysis. GASTROINTESTINAL: No diarrhea, no nausea, no vomiting, no abdominal pain. Normoactive bowel sounds. NEUROLOGICAL: No headaches, no weakness, no numbness. HEMATOLOGICAL: Denies any bleeding or petechiae. GENITOURINARY: Denies any burning micturition, frequency, or urgency. MUSCULOSKELETAL/RHEUMATOLOGICAL: Denies any joint pain, swelling, or any muscle pain. ENDOCRINE: Denies any polyuria or polydipsia. Past Medical History Past Medical History: No Reported History, Diabetes Mellitus, GERD/Reflux, Hyperlipidemia, Hypertension, Osteoarthritis (OA) Additional Past Medical History / Comment(s): GESTATIONAL DIABETES, History of Any Multi-Drug Resistant Organisms: None Reported Past Surgical History: Back Surgery, Section, Cholecystectomy, Tubal Ligation Additional Past Surgical History / Comment(s): , bilateral cataracts with implants Past Anesthesia/Blood Transfusion Reactions: No Reported Reaction Past Psychological History: Anxiety, Depression, Panic Disorder Smoking Status: Current every day smoker Past Alcohol Use History: None Reported Past Drug Use History: Marijuana - Past Family History Mother Family Medical History: No Reported History Father Family Medical History: Liver Disease Additional Family Medical History / Comment(s): Father of liver disease. Medications and Allergies Home Medications Medication Instructions Recorded Confirmed Type Ertugliflozin Pidolate [Steglatro] 15 mg PO DAILY 12/09/18 07/18/19 History Glimepiride [Amaryl] 4 mg PO BID 12/09/18 07/18/19 History Hydrocodone/Acetaminophen [[place] 1 tab PO QID PRN 12/09/18 07/18/19 History 10-325] metFORMIN HCL [Glucophage] 1,000 mg PO BID 12/09/18 07/18/19 History Lisinopril [Zestril] 2.5 mg PO DAILY 07/18/19 07/18/19 History Allergies Allergy/AdvReac Type Severity Reaction Status Date / Time No Known Allergies Allergy Verified 07/18/19 10:53 Physical Exam Vitals: Vital Signs Temp Pulse Resp BP Pulse Ox 07/18/19 12:15 100 17 109/71 97 07/18/19 10:24 98.5 F 94 16 157/87 97 07/18/19 08:34 97.9 F 107 H 18 167/85 100 Intake and Output 07/17/19 07/18/19 07/18/19 22:59 06:59 14:59 Other: Weight 78.925 kg GENERAL: The patient is alert and oriented x3, not in any acute distress. Well developed, well nourished. HEENT: Pupils are round and equally reacting to light. EOMI. No scleral icterus. No conjunctival pallor. Normocephalic, atraumatic. No pharyngeal erythema. No thyromegaly. CARDIOVASCULAR: S1 and S2 present. No murmurs, rubs, or gallops. PULMONARY: Chest is clear to auscultation, no wheezing or crackles. ABDOMEN: Soft, nontender, nondistended, normoactive bowel sounds. No palpable organomegaly. MUSCULOSKELETAL: No joint swelling or deformity. EXTREMITIES: No cyanosis, clubbing, or pedal edema. NEUROLOGICAL: Gross neurological examination did not reveal any focal deficits. SKIN: No rashes. No petechiae Results CBC & Chem 7: 07/18/19 09:00 07/18/19 09:00 Labs: Abnormal Lab Results - Last 24 Hours (Table) 07/18/19 07/18/19 07/18/19 Range/Units 08:45 09:00 09:00 WBC 13.0 H (3.8-10.6) k/uL Neutrophils # 10.7 H (1.3-7.7) k/uL Potassium 3.3 L (3.5-5.1) mmol/L BUN 24 H (7-17) mg/dL Glucose 217 H (74-99) mg/dL Amylase 178 H (30-110) U/L Lipase 343 H (23-300) U/L Urine Protein 2+ H (Negative) Urine Glucose (UA) 4+ H (Negative) Urine Ketones 3+ H (Negative) Urine Blood Small H (Negative) Ur Leukocyte Esterase Small H (Negative) Urine RBC 6 H (0-5) /hpf Urine WBC 34 H (0-5) /hpf Urine Bacteria Rare H (None) /hpf Hyaline Casts 3 H (0-2) /lpf Urine Mucus Rare H (None) /hpf Assessment and Plan Assessment: Intractable nausea vomiting with epigastric discomfort/rather than pain Upper respiratory symptoms with Raynaud's, coughing and sore throat, could be viral illness. Rule out influenza Gastroesophageal reflux disease Substance abuse, including marijuana nicotine dependence Diabetes mellitus Hypertension Hyperlipidemia Primary osteoarthritis Chronic neck and back pain Plan: This is a pleasant 53 years old female who presents with intractable nausea vomiting. Continue with antiemetics.. continue with symptomatic treatment. continue with iv hydration. Check influenza. Start ceftriaxone. Check occult blood in stool, check hemoglobin A1c, and placed the patient on insulin sliding scale. Labs and medication were reviewed.. Continue same treatment. Continue with symptomatic treatment. Resume home medication. Monitor lytes and vitals. DVT and GI prophylaxis. Further recommendations of the clinical course of the patie nt DVT prophylaxis: Subcutaneous heparin GI Prophylaxis: Protonix Prognosis is guarded
[2019-07-18] MEDS ORDERED: Magnesium Replacement Protocol 1 EACH MISC MISCELLANE PRN (13:59)
[2019-07-18] MEDS ORDERED: Potassium Replacement Protocol 1 EACH MISC MISCELLANE PRN (13:59)
[2019-07-18] MEDS: ONDANSETRON 4 MG/2 ML VIAL IVP PRN (14:33)
[2019-07-18] MEDS: HYDROcodone/APAP 10-325MG 1 EACH TAB PO PRN ×2 (14:33→21:07)
[2019-07-18] MEDS: PANTOPRAZOLE 40 MG/10 ML VIAL IVP SCH (14:34)
[2019-07-18] MEDS: INSULIN ASPART (NovoLOG) 100 UNIT/ML VIAL SQ SCH ×3 (14:38→21:08)
[2019-07-18 17:01] LABS: Glucose,Whole Blood 191 mg/dL (75-99)
[2019-07-18] MEDS: metFORMIN 500 MG TAB PO SCH (17:59)
[2019-07-18 20:53] LABS: Glucose,Whole Blood 176 mg/dL (75-99)
[2019-07-18] MEDS: HEPARIN SODIUM,PORCINE 5,000 UNIT/ML 1 ML VIAL SQ SCH (21:08)
[2019-07-18] MEDS: GLIMEPIRIDE 4 MG TAB PO SCH (21:08)
[2019-07-19] MEDS: SODIUM CHLORIDE 0.9% 1,000 ML IV SCH ×3 (05:18→22:51)
--- NOTE | 2019-07-19 06:58 | XR ---
EXAM: XR Abdomen, 2 Views CLINICAL HISTORY: ITS.REASON XR Reason: nausea and vomiting TECHNIQUE: Frontal view of the abdomen/pelvis with upright view of the abdomen. COMPARISON: No relevant prior studies available. FINDINGS: Intraperitoneal space: No free air. Cholecystectomy clips. Gastrointestinal tract: Unremarkable. No dilation. Bones/joints: No acute fracture. No dislocation. Fusion hardware is seen. IMPRESSION: No acute findings.
[2019-07-19 07:09] LABS: Glucose,Whole Blood 82 mg/dL (75-99)
[2019-07-19] MEDS: INSULIN ASPART (NovoLOG) 100 UNIT/ML VIAL SQ SCH ×4 (07:41→21:01)
[2019-07-19] MEDS: PANTOPRAZOLE 40 MG/10 ML VIAL IVP SCH ×2 (07:47→21:01)
[2019-07-19] MEDS: ONDANSETRON 4 MG/2 ML VIAL IVP PRN (07:47)
[2019-07-19] MEDS: LISINOPRIL 2.5 MG TAB PO SCH (07:48)
[2019-07-19] MEDS: HEPARIN SODIUM,PORCINE 5,000 UNIT/ML 1 ML VIAL SQ SCH ×2 (07:49→21:00)
[2019-07-19] MEDS: GLIMEPIRIDE 4 MG TAB PO SCH ×2 (07:49→21:01)
[2019-07-19] MEDS: metFORMIN 500 MG TAB PO SCH ×2 (07:49→17:01)
[2019-07-19 08:30] LABS: Basophils % (A) 0 %; Eosinophils # (A) 0.1 k/uL (0-0.7); Eosinophils % (A) 1 %; HCT 39.6 % (34.0-46.0); HGB 13.5 gm/dL (11.4-16.0); Lymphocytes % (A) 26 %; MCH 28.2 pg (25.0-35.0); MCHC 34.1 g/dL (31.0-37.0); MCV 82.7 fL (80.0-100.0); Mean Platelet Volume 7.9; Monocytes # (A) 0.5 k/uL (0-1.0); Monocytes % (A) 6 %; Neutrophils # (A) 4.9 k/uL (1.3-7.7); Neutrophils % (A) 65 %; Platelet Count 202 k/uL (150-450); RBC 4.79 m/uL (3.80-5.40); RDW 13.6 % (11.5-15.5); WBC 7.6 k/uL (3.8-10.6)
[2019-07-19 08:40] LABS: ALT 23 U/L (9-52); AST 19 U/L (14-36); African American GFR (CKD) >90 (>60 ml/min/1.73 sqM); Albumin 3.5 g/dL (3.5-5.0); Alkaline Phosphatase 77 U/L (38-126); Anion Gap 7 mmol/L; Bilirubin, Delta 0.2 mg/dL (0.0-0.2); Bilirubin,Unconjugated 0.5 mg/dL (0.0-1.1); Blood Urea Nitrogen 14 mg/dL (7-17); Calcium 8.8 mg/dL (8.4-10.2); Carbon Dioxide 30 mmol/L (22-30); Chloride 100 mmol/L (98-107); Glucose 90 mg/dL (74-99); Magnesium 1.9 mg/dL (1.6-2.3); Non-African American GFR(CKD) >90 (>60 ml/min/1.73 sqM); Potassium 3.1 mmol/L (3.5-5.1); Sodium 137 mmol/L (137-145); Total Bilirubin 0.7 mg/dL (0.2-1.3); Total Protein 6.4 g/dL (6.3-8.2)
[2019-07-19] MEDS ORDERED: TRIMETHOBENZAMIDE 300 MG CAP PO PRN (10:48)
[2019-07-19 11:25] VITALS: BMI 27.3
--- NOTE | 2019-07-19 11:29 | P.PN ---
Subjective This is a pleasant 53 years old female with past medical history of gastroesophageal reflux disease, diabetes mellitus, hypertension, hyperlipidemia , osteoarthritis, chronic neck and back pain and she follow up with Dr. Godwin. Presents because of intractable nausea vomiting. Patient states that since Wednesday she started having intractable nausea vomiting associated with diarrhea, however her diarrhea stopped yesterday but her nausea vomiting persist despite she's been in the emergency room last Wednesday and she's been treated symptomatically and discharged home however she has no improvement so she decided to come to the hospital, associated with epigastric discomfort rather than pain radiating up to the mid chest, associated with runny nose and cough and with clear phlegm and central chest pain with coughing only, also patient has some sore throat. She denies dyspnea. Also she has generalized body aches and feeling fatigued. She smokes about 1-2 cigarettes per day as well as marijuana, no history of alcohol. On admission her vitals looks stable. Labs showed leukocytosis of 13 K, compared to baseline of 8.5-10.5. Mildly low potassium at 3.3, magnesium 1.9, sugar 217, creatinine 0.8, lipase 344, amylase 178. Chest x-ray no acute process In the emergency room patient was started on normal saline at 1.2 mL/h, cut antiacids and morphine 07/19/2019 Patient showed some improvement in her nausea vomiting however is still significantly bothering her, she had 4 episodes of vomiting since last night. No abdominal pain or epigastric discomfort. Abdominal exam looks benign. No bowel movementyet. Abdominal x-rays negative, exam is benign. Upper respiratory symptoms are also improving.labs have reviewedabnormal we will 7.6K, unremarkable CBC, BMP and liver enzymes. Potassium 3.1 replaced. review of systems CONSTITUTIONAL: No fever, no malaise, no fatigue. HEENT: No recent visual problems or hearing problems. Denied any sore throat. CARDIOVASCULAR: No orthopnea, PND, no palpitations, no syncope. PULMONARY: No shortness of breath, no cough, no hemoptysis. GASTROINTESTINAL: No diarrhea, no nausea, no vomiting, no abdominal pain. Normoactive bowel sounds. NEUROLOGICAL: No headaches, no weakness, no numbness. HEMATOLOGICAL: Denies any bleeding or petechiae. GENITOURINARY: Denies any burning micturition, frequency, or urgency. MUSCULOSKELETAL/RHEUMATOLOGICAL: Denies any joint pain, swelling, or any muscle pain. ENDOCRINE: Denies any polyuria or polydipsia. Objective - Vital Signs Vital signs: Vital Signs Temp 98.9 F 07/19/19 05:37 Pulse 93 07/19/19 05:37 Resp 16 07/19/19 05:37 BP 164/78 07/19/19 05:37 Pulse Ox 99 07/19/19 05:37 Intake & Output 07/18/19 07/19/19 07/19/19 18:59 06:59 18:59 Intake Total 940 Balance 940 Weight 78.925 kg Intake: Amount of Fluid Infused ( 400 ml) Oral 540 Other: # Voids 1 2 - Labs CBC & Chem 7: 07/19/19 08:05 07/19/19 08:05 Labs: Abnormal Lab Results - Last 24 Hours (Table) 07/18/19 07/18/19 07/19/19 Range/Units 16:53 20:52 08:05 Potassium 3.1 L (3.5-5.1) mmol/L POC Glucose (mg/dL) 191 H 176 H (75-99) mg/dL Microbiology - Last 24 Hours (Table) 07/18/19 08:45 Urine Culture - Preliminary Urine,Voided Assessment and Plan Assessment: Intractable nausea vomiting with epigastric discomfort/rather than pain Upper respiratory symptoms with sneezing, coughing and sore throat, could be viral illness. Rule out influenza mildly elevated lipase and amylase suspicious for pancreatitis Gastroesophageal reflux disease Substance abuse, including marijuana nicotine dependence Diabetes mellitus Hypertension Hyperlipidemia Primary osteoarthritis Chronic neck and back pain Plan: This is a pleasant 53 years old female who presents with intractable nausea vomiting. Continue with antiemetics Xeroform and Tigan. continue with symptomatic treatment. continue with iv hydration. DC ceftriaxone. Check occult blood in stool, check hemoglobin A1c, and placed the patient on insulin sliding scale.GI consult is placed Labs and medication were reviewed.. Continue same treatment. Continue with symptomatic treatment. Resume home medication. Monitor lytes and vitals. DVT and GI prophylaxis. Further recommendations of the clinical course of the patient DVT prophylaxis: Subcutaneous heparin GI Prophylaxis: Protonix Prognosis is guarded
[2019-07-19] MEDS ORDERED: Potassium Replacement Protocol 1 EACH MISC MISCELLANE PRN (11:44)
[2019-07-19 12:15] LABS: Glucose,Whole Blood 88 mg/dL (75-99)
[2019-07-19] MEDS ORDERED: DICYCLOMINE 20 MG TAB PO PRN (12:40)
[2019-07-19] MEDS: POTASSIUM CHLORIDE 10 MEQ in WATER FOR INJECTION 1 100ML.BAG IVPB SCH ×4 (13:02→17:00)
[2019-07-19] MEDS: POLYETHYLENE GLYCOL 3350 17 GM POWD.PACK PO SCH (15:28)
[2019-07-19] MEDS: HYDROcodone/APAP 10-325MG 1 EACH TAB PO PRN ×2 (15:59→23:57)
--- NOTE | 2019-07-19 16:17 | US ---
EXAMINATION TYPE: US abdomen complete DATE OF EXAM: 07/19/2019 COMPARISON: NONE CLINICAL HISTORY: epigastric pain, N/V. GB removed at age 19. Exam scanned portable EXAM MEASUREMENTS: Liver Length: 13.6 cm CBD: 0.4 cm Spleen: 10.9 cm Right Kidney: 10.2 x 5.1 x 5.3 cm Left Kidney: 11.2 x 5.6 x 6.3 cm Pancreas: Tail obscured by overlying bowel gas Liver: wnl Gallbladder: Surgically absent Evidence for sonographic Jenkins's sign: neg CBD: wnl Spleen: wnl Right Kidney: wnl Left Kidney: wnl Upper IVC: wnl Abd Aorta: Proximal and mid portions obscured by overlying bowel gas. The liver is homogenous. The intrahepatic portion of the IVC and proximal abdominal aorta are within normal limits. Common bile duct is unremarkable. The visualized portions of the pancreas are homo genous. The spleen is unremarkable. Kidneys are symmetric and free of hydronephrosis. No renal les ions are seen. IMPRESSION: No distinct abnormality seen.
[2019-07-19 17:00] LABS: Glucose,Whole Blood 84 mg/dL (75-99)
[2019-07-19] MEDS: ONDANSETRON 4 MG/2 ML VIAL IVP SCH ×2 (17:00→23:57)
[2019-07-19 19:20] LABS: Hemoglobin A1C 7.4 % (4.0-6.0)
[2019-07-19 20:50] LABS: Glucose,Whole Blood 95 mg/dL (75-99)
--- NOTE | 2019-07-19 21:43 | P.CONS ---
History of Present Illness - Reason for Consult Consult date: 07/19/19 Nausea and vomiting Requesting physician: Suraj E Sheet - Chief Complaint Nausea and vomiting - History of Present Illness 53-year-old female with a past medical history of gastroesophageal reflux disease, diabetes mellitus, hypertension, hyperlipidemia, osteoarthritis and chronic neck and back pain who presented to the hospital due to nausea and vomiting. The patient reports multiple episodes of nausea and vomiting prior to presentation started over the past few days. She also reported associated nonbloody diarrhea which improves after presentation. The patient also states that she is been having abdominal pain described as sharp in the epigastric region. She denies any radiation of pain. She is status post cholecystectomy. X-ray of the abdomen on presentation was negative and ultrasound of the abdomen also was unremarkable. The patient has had similar episodes in the past and reports problems with constipation after her cholecystectomy. She will use [id number] laxatives as needed to have a bowel movement. She reports her last bowel movement occurring on the weekend and described as thickened dark in color without any gross blood. Laboratory evaluation on presentation was significant for the previously 7.6, hemoglobin 13.5, platelet count 202,000, amylase 178, lipase 248 with normal liver enzymes. She had EGD and colonoscopy on 06/2019 with an incomplete colonoscopy due to poor prep and antritis found on EGD. Review of Systems REVIEW OF SYSTEMS: CONSTITUTIONAL: Denies any fevers, chills, weight change or fatigue. CARDIOVASCULAR: Denies any chest pain, palpitations high or low blood pressures RESPIRATORY: Denies any shortness of breath, hemoptysis or cough. GENITOURINARY: No dysuria or hematuria. MUSCULOSKELETAL: No weakness reported. SKIN: Denies any new rashes or lesions, jaundice or pallor. PSYCHIATRIC: Denies any new onset depression or anxiety. NEUROLOGY: Denies headache, denies any new focal deficits. EARS/NOSE/THROAT: No recent hearing change, congestion, nasal discharge or sore throat. EYES: No pain in eyes, discharge or change in vision. GASTROINTESTINAL: As per HPI. Past Medical History Past Medical History: No Reported History, Diabetes Mellitus, GERD/Reflux, Hyperlipidemia, Hypertension, Osteoarthritis (OA) Additional Past Medical History / Comment(s): GESTATIONAL DIABETES, History of Any Multi-Drug Resistant Organisms: None Reported Past Surgical History: Back Surgery, Section, Cholecystectomy, Tubal Ligation Additional Past Surgical History / Comment(s): , bilateral cataracts with implants Past Anesthesia/Blood Transfusion Reactions: No Reported Reaction Past Psychological History: Anxiety, Depression, Panic Disorder Smoking Status: Current every day smoker Past Alcohol Use History: None Reported Past Drug Use History: Marijuana - Past Family History Father Family Medical History: Liver Disease Additional Family Medical History / Comment(s): Father of liver disease. Mother Family Medical History: No Reported History Additional Family Medical History / Comment(s): Mother is healthy Medications and Allergies Home Medications Medication Instructions Recorded Confirmed Type Ertugliflozin Pidolate [Steglatro] 15 mg PO DAILY 12/09/18 07/18/19 History Glimepiride [Amaryl] 4 mg PO BID 12/09/18 07/18/19 History Hydrocodone/Acetaminophen [[place] 1 tab PO QID PRN 12/09/18 07/18/19 History 10-325] metFORMIN HCL [Glucophage] 1,000 mg PO BID 12/09/18 07/18/19 History Lisinopril [Zestril] 2.5 mg PO DAILY 07/18/19 07/18/19 History Allergies Allergy/AdvReac Type Severity Reaction Status Date / Time No Known Allergies Allergy Verified 07/18/19 10:53 Physical Exam Vitals: Vital Signs Temp Pulse Pulse Resp BP BP Pulse Ox 07/19/19 05:37 98.9 F 93 16 164/78 99 07/18/19 20:50 98.4 F 84 16 152/80 98 07/18/19 15:10 98.7 F 98 17 124/71 96 07/18/19 15:02 101 H 15 161/88 99 07/18/19 14:15 98 20 148/88 99 07/18/19 13:55 97.6 F 106 H 18 118/77 96 07/18/19 12:15 100 17 109/71 97 07/18/19 10:24 98.5 F 94 16 157/87 97 Intake and Output 07/18/19 07/19/19 07/19/19 22:59 06:59 14:59 Intake Total 940 Balance 940 Intake: Amount of Fluid Infused ( 400 ml) Oral 540 Other: # Voids 1 2 On physical examination, patient appears comfortable in no apparent distress. HEAD: Normocephalic, atraumatic. EYES: No scleral icterus. No conjunctival injection. MOUTH: No lesions, tongue midline. NECK: Trachea midline, no gross abnormalities. CHEST: Clear to auscultation with no wheezing or rhonchi appreciated. HEART: Regular rate and rhythm. ABDOMEN: Soft, mildly tender to palpation. Bowel sounds are positive. No organomegaly. No guarding or rigidity. EXTREMITIES: No pedal edema. SKIN: No rashes, no jaundice. NEUROLOGIC: Alert and oriented x3. No focal deficits. Results CBC & Chem 7: 07/19/19 08:05 07/19/19 08:05 Labs: Abnormal Lab Results - Last 24 Hours (Table) 07/18/19 07/18/19 07/19/19 Range/Units 16:53 20:52 08:05 Potassium 3.1 L (3.5-5.1) mmol/L POC Glucose (mg/dL) 191 H 176 H (75-99) mg/dL Microbiology - Last 24 Hours (Table) 07/18/19 08:45 Urine Culture - Preliminary Urine,Voided US - abdomen: report reviewed (Ultrasound of the abdomen unremarkable.) Assessment and Plan (1) Nausea & vomiting Narrative/Plan: 53-year-old female with multiple medical comorbidities presenting to the hospital with complaints of nausea and vomiting, with associated diarrhea which has improved and abdominal pain. Imaging studies including ultrasound of the abdomen and x-ray of the abdomen have been unremarkable. Patient did have EGD in 06/2019 with findings of antritis. She does report suffering from chronic constipation at baseline which has been present since her cholecystectomy. Colonoscopy on 06/2019 was incomplete due to poor prep. Amylase and lipase mildly elevated but likely secondary to dehydration on presentation. Unclear etiology, may be secondary to uncontrolled reflux, gastroenteritis, functional bowel disorder or other etiology. Current Visit: No Status: Acute Code(s): R11.2 - NAUSEA WITH VOMITING, UNSPECIFIED SNOMED Code(s): 25909388 (2) Abdominal pain Current Visit: No Status: Acute Code(s): R10.9 - UNSPECIFIED ABDOMINAL PAIN SNOMED Code(s): 53713967 Plan: Supportive care Okay for diet as tolerated Will initiate bowel regimen with MiraLAX daily Protonix 40 mg twice daily Dicyclomine 20 mg 4 times a day as needed for abdominal pain Continue to monitor symptomatically Follow-up after discharge for colonoscopy Thank you for allowing us to participate in the care of this patient we will continue to follow
[2019-07-20] MEDS: SODIUM CHLORIDE 0.9% 1,000 ML IV SCH ×3 (06:22→20:18)
[2019-07-20 07:13] LABS: Glucose,Whole Blood 92 mg/dL (75-99)
[2019-07-20] MEDS: metFORMIN 500 MG TAB PO SCH ×2 (07:34→17:02)
[2019-07-20] MEDS: HEPARIN SODIUM,PORCINE 5,000 UNIT/ML 1 ML VIAL SQ SCH ×2 (07:35→20:15)
[2019-07-20] MEDS: ONDANSETRON 4 MG/2 ML VIAL IVP SCH ×2 (07:35→16:02)
[2019-07-20] MEDS: HYDROcodone/APAP 10-325MG 1 EACH TAB PO PRN ×2 (07:35→14:34)
[2019-07-20] MEDS: LISINOPRIL 2.5 MG TAB PO SCH (07:35)
[2019-07-20] MEDS: PANTOPRAZOLE 40 MG/10 ML VIAL IVP SCH (07:36)
[2019-07-20] MEDS: GLIMEPIRIDE 4 MG TAB PO SCH ×2 (07:36→20:14)
[2019-07-20] MEDS: POLYETHYLENE GLYCOL 3350 17 GM POWD.PACK PO SCH (07:37)
[2019-07-20] MEDS: INSULIN ASPART (NovoLOG) 100 UNIT/ML VIAL SQ SCH ×4 (07:48→20:15)
--- NOTE | 2019-07-20 08:08 | P.PN ---
Subjective This is a pleasant 53 years old female with past medical history of gastroesophageal reflux disease, diabetes mellitus, hypertension, hyperlipidemia , osteoarthritis, chronic neck and back pain and she follow up with Dr. Godwin. Presents because of intractable nausea vomiting. Patient states that since Wednesday she started having intractable nausea vomiting associated with diarrhea, however her diarrhea stopped yesterday but her nausea vomiting persist despite she's been in the emergency room last Wednesday and she's been treated symptomatically and discharged home however she has no improvement so she decided to come to the hospital, associated with epigastric discomfort rather than pain radiating up to the mid chest, associated with runny nose and cough and with clear phlegm and central chest pain with coughing only, also patient has some sore throat. She denies dyspnea. Also she has generalized body aches and feeling fatigued. She smokes about 1-2 cigarettes per day as well as marijuana, no history of alcohol. On admission her vitals looks stable. Labs showed leukocytosis of 13 K, compared to baseline of 8.5-10.5. Mildly low potassium at 3.3, magnesium 1.9, sugar 217, creatinine 0.8, lipase 344, amylase 178. Chest x-ray no acute process In the emergency room patient was started on normal saline at 1.2 mL/h, cut antiacids and morphine 07/19/2019 Patient showed some improvement in her nausea vomiting however is still significantly bothering her, she had 4 episodes of vomiting since last night. No abdominal pain or epigastric discomfort. Abdominal exam looks benign. No bowel movementyet. Abdominal x-rays negative, exam is benign. Upper respiratory symptoms are also improving.labs have reviewedabnormal we will 7.6K, unremarkable CBC, BMP and liver enzymes. Potassium 3.1 replaced. 07/20/2019 Patient is fully awake resting in bed. She is gradually improving. Last time she vomited was yesterday morning 3, no vomiting since then, however she has persistent nausea while on clear liquid diet. Patient feels hungry and wants her diet to be advanced. No epigastric or abdominal pain or tenderness. No b owel movement or passing gases. Her upper respiratory symptoms are significantly improved. Vitals are stable. Abdominal ultrasound abdominal x- ray are negative. Labs from today still pending. Patient was started on Protonix, Bentyl and MiraLAX. Number normal saline to 75 mL/h. Patient was counseled to quit marijuana. Patient states she has been smoking marijuana since age 16. Old records are reviewed today. Patient had EGD/colonoscopy with Dr. Peters on 06/21/2019: We found no obvious organic and goes. Gastric biopsies showing normal gastric mucosa Also patient hemoglobin A1c came back as 7.4% which is elevated all the patient is on metformin 1000 twice a day and imipramine 4 milligrams twice a day Discussed with Mr. Review of systems CONSTITUTIONAL: No fever, no malaise, no fatigue. HEENT: No recent visual problems or hearing problems. Denied any sore throat. CARDIOVASCULAR: No orthopnea, PND, no palpitations, no syncope. PULMONARY: No shortness of breath, no cough, no hemoptysis. GASTROINTESTINAL: No diarrhea, no abdominal pain. Normoactive bowel sounds. NEUROLOGICAL: No headaches, no weakness, no numbness. HEMATOLOGICAL: Denies any bleeding or petechiae. GENITOURINARY: Denies any burning micturition, frequency, or urgency. MUSCULOSKELETAL/RHEUMATOLOGICAL: Denies any joint pain, swelling, or any muscle pain. ENDOCRINE: Denies any polyuria or polydipsia. Active Medications Generic Name Dose Route Start Last Admin Trade Name Freq PRN Reason Stop Dose Admin Hydrocodone Bitart/Acetaminophen 1 each 07/18/19 13:39 07/20/19 07:35 [place] 10 PO 1 each QID PRN Administration MODERATE Pain Dicyclomine HCl 20 mg 07/19/19 12:40 07/19/19 13:02 Bentyl PO 20 mg QID PRN Administration Dyspepsia Glimepiride 4 mg 07/18/19 21:00 07/20/19 07:36 Amaryl PO 4 mg BID SINGH Administration Heparin Sodium (Porcine) 5,000 unit 07/18/19 21:00 07/20/19 07:35 Heparin SQ 5,000 unit Q12HR SINGH Administration Hydromorphone HCl 0.5 mg 07/18/19 11:15 Dilaudid IVP Q3HR PRN SEVERE Pain Sodium Chloride 1,000 mls @ 75 mls/hr 07/18/19 11:15 07/20/19 08:04 Saline 0.9% IV 75 mls/hr .[id number] SINGH Administration Insulin Aspart 0 unit 07/18/19 12:30 07/20/19 07:48 Novolog SQ Not Given ACHS SINGH Protocol Lisinopril 2.5 mg 07/19/19 09:00 07/20/19 07:35 Zestril PO 2.5 mg DAILY SINGH Administration Metformin HCl 1,000 mg 07/18/19 17:30 07/20/19 07:34 Glucophage PO 1,000 mg BID-W/MEALS SINGH Administration Miscellaneous Information 1 each 07/18/19 13:59 Potassium Per Protocol MISCELLANE DAILY PRN Per Protocol Protocol Miscellaneous Information 1 each 07/18/19 13:59 Magnesium Per Protocol MISCELLANE DAILY PRN Per Protocol Protocol Miscellaneous Information 1 each 07/19/19 11:44 Potassium Per Protocol MISCELLANE DAILY PRN Per Protocol Protocol Naloxone HCl 0.2 mg 07/18/19 11:15 Narcan IV Q2M PRN Opioid Reversal Ondansetron HCl 4 mg 07/19/19 16:00 07/20/19 07:35 Zofran IVP 4 mg Q8HR SINGH Administration Pantoprazole Sodium 40 mg 07/19/19 21:00 07/20/19 07:36 Protonix IVP 40 mg BID SINGH Administration Polyethylene Glycol 17 gm 07/19/19 13:45 07/20/19 07:37 Miralax PO 17 gm DAILY SINGH Administration Trimethobenzamide HCl 300 mg 07/19/19 10:48 Tigan PO TID PRN Nausea And Vomiting Objective - Vital Signs Vital signs: Vital Signs Temp 98.5 F 07/20/19 06:12 Pulse 75 07/20/19 06:12 Resp 16 07/20/19 06:12 BP 130/76 07/20/19 06:12 Pulse Ox 100 07/20/19 06:12 Intake & Output 07/19/19 07/20/19 07/20/19 18:59 06:59 18:59 Intake Total 1640 Balance 1640 Weight 83.915 kg Intake: Intake, IV Titration 1100 Amount Potassium Chloride 10 meq 100 In Water For Injection 1 100ml.bag @ 100 mls/hr IVPB Q1HR SINGH Rx#: [id number] Sodium Chloride 0.9% 1, 1000 000 ml @ 150 mls/hr IV . Q6H40M SINGH Rx#:[id number] Oral 540 Other: Voiding Method Toilet # Voids 2 1 - Exam GENERAL: The patient is alert and oriented x3, not in any acute distress. Well developed, well nourished. HEENT: Pupils are round and equally reacting to light. EOMI. No scleral icterus. No conjunctival pallor. Normocephalic, atraumatic. No pharyngeal erythema. No thyromegaly. CARDIOVASCULAR: S1 and S2 present. No murmurs, rubs, or gallops. PULMONARY: Chest is clear to auscultation, no wheezing or crackles. ABDOMEN: Soft, nontender, nondistended, normoactive bowel sounds. No palpable organomegaly. MUSCULOSKELETAL: No joint swelling or deformity. EXTREMITIES: No cyanosis, clubbing, or pedal edema. NEUROLOGICAL: Gross neurological examination did not reveal any focal deficits. SKIN: No rashes. no petechiae. - Labs CBC & Chem 7: 07/19/19 08:05 07/19/19 08:05 Labs: Abnormal Lab Results - Last 24 Hours (Table) 07/19/19 07/19/19 Range/Units 08:05 08:05 Potassium 3.1 L (3.5-5.1) mmol/L Hemoglobin A1c 7.4 H (4.0-6.0) % Microbiology - Last 24 Hours (Table) 07/18/19 08:45 Urine Culture - Final Urine,Voided Assessment and Plan Assessment: Intractable nausea vomiting. Most likely multifactorial related to marijuana (cannabinoid hyperemesis syndrome) with possible elements of diabetic gastroparesis Diabetes mellitus, uncontrolled with hemoglobin A1c of 7.4% Upper respiratory symptoms with, improved mildly elevated lipase and amylase suspicious for mild pancreatitis. No abdominal pain and patient is tolerating diet Gastroesophageal reflux disease Substance abuse, including marijuana nicotine dependence Hypertension Hyperlipidemia Primary osteoarthritis Chronic neck and back pain Plan: This is a pleasant 53 years old female who presents with intractable nausea vomiting. Continue with antiemetics Zofran and Tigan. continue with symptomatic treatment. continue with iv hydration. Check occult blood in stool, and placed the patient on insulin sliding scale.GI consult is placed Labs and medication were reviewed.. Continue same treatment. Continue with symptomatic treatment. Resume home medication. Monitor lytes and vitals. DVT and GI prophylaxis. Further recommendations of the clinical course of the patient DVT prophylaxis: Subcutaneous heparin GI Prophylaxis: Protonix Prognosis is guarded
[2019-07-20 10:24] LABS: Basophils % (A) 0 %; Eosinophils # (A) 0.1 k/uL (0-0.7); Eosinophils % (A) 2 %; HCT 36.8 % (34.0-46.0); HGB 12.3 gm/dL (11.4-16.0); Lymphocytes # (A) 2.2 k/uL (1.0-4.8); Lymphocytes % (A) 37 %; MCH 28.1 pg (25.0-35.0); MCHC 33.6 g/dL (31.0-37.0); MCV 83.8 fL (80.0-100.0); Mean Platelet Volume 8.4; Monocytes # (A) 0.4 k/uL (0-1.0); Monocytes % (A) 7 %; Neutrophils # (A) 3.1 k/uL (1.3-7.7); Neutrophils % (A) 52 %; Platelet Count 171 k/uL (150-450); RBC 4.39 m/uL (3.80-5.40); RDW 13.6 % (11.5-15.5); WBC 5.9 k/uL (3.8-10.6)
[2019-07-20 10:25] LABS: African American GFR (CKD) >90 (>60 ml/min/1.73 sqM); Anion Gap 5 mmol/L; Blood Urea Nitrogen 10 mg/dL (7-17); Calcium 8.6 mg/dL (8.4-10.2); Carbon Dioxide 28 mmol/L (22-30); Chloride 103 mmol/L (98-107); Glucose 186 mg/dL (74-99); Magnesium 1.8 mg/dL (1.6-2.3); Non-African American GFR(CKD) >90 (>60 ml/min/1.73 sqM); Potassium 3.2 mmol/L (3.5-5.1); Sodium 136 mmol/L (137-145)
[2019-07-20] MEDS: POTASSIUM CHLORIDE ER 10 MEQ TAB.ER.PRT PO SCH ×3 (11:12→14:29)
[2019-07-20 11:59] LABS: Glucose,Whole Blood 168 mg/dL (75-99)
[2019-07-20] MEDS: PANTOPRAZOLE 40 MG TABLET PO SCH (16:02)
[2019-07-20 17:09] LABS: Glucose,Whole Blood 116 mg/dL (75-99)
[2019-07-20] MEDS ORDERED: FLUCONAZOLE 150 MG TAB PO STA (19:33)
[2019-07-20] MEDS ORDERED: POTASSIUM CHLORIDE ER 20 MEQ TAB.ER PO STA ×2 (19:35→20:38)
[2019-07-20] MEDS ORDERED: MAGNESIUM SULFATE-D5W PMX 1 GM in DEXTROSE/WATER 1 100ML.BAG IVPB ONE (20:00)
[2019-07-20 20:03] LABS: Glucose,Whole Blood 112 mg/dL (75-99)
[2019-07-20] MEDS: metFORMIN 850 MG TAB PO SCH (21:40)
--- NOTE | 2019-07-20 22:50 | P.PN ---
Subjective Progress Note Date: 07/20/19 Principal diagnosis: Abdominal pain, chronic constipation Patient reporting she is feeling somewhat better today. Tolerating diet. No bowel movement reported. Objective - Vital Signs Vital signs: Vital Signs Temp 98.5 F 07/20/19 06:12 Pulse 75 07/20/19 06:12 Resp 16 07/20/19 06:12 BP 130/76 07/20/19 06:12 Pulse Ox 100 07/20/19 06:12 Intake & Output 07/19/19 07/20/19 07/20/19 18:59 06:59 18:59 Intake Total 1640 Balance 1640 Weight 83.915 kg 83.915 kg Intake: Intake, IV Titration 1100 Amount Potassium Chloride 10 meq 100 In Water For Injection 1 100ml.bag @ 100 mls/hr IVPB Q1HR SINGH Rx#: [id number] Sodium Chloride 0.9% 1, 1000 000 ml @ 150 mls/hr IV . Q6H40M SINGH Rx#:[id number] Oral 540 Other: Voiding Method Toilet # Voids 2 1 - Exam On physical examination, patient appears comfortable in no apparent distress. HEAD: Normocephalic, atraumatic. EYES: No scleral icterus. No conjunctival injection. MOUTH: No lesions, tongue midline. NECK: Trachea midline, no gross abnormalities. CHEST: Clear to auscultation with no wheezing or rhonchi appreciated. HEART: Regular rate and rhythm. ABDOMEN: Soft, obese. Bowel sounds are positive. No organomegaly. No guarding or rigidity. EXTREMITIES: No pedal edema. SKIN: No rashes, no jaundice. NEUROLOGIC: Alert and oriented x3. No focal deficits. - Labs CBC & Chem 7: 07/20/19 09:16 07/20/19 16:15 Labs: Abnormal Lab Results - Last 24 Hours (Table) 07/19/19 07/20/19 07/20/19 Range/Units 08:05 09:16 11:57 Sodium 136 L (137-145) mmol/L Potassium 3.2 L (3.5-5.1) mmol/L Glucose 186 H (74-99) mg/dL POC Glucose (mg/dL) 168 H (75-99) mg/dL Hemoglobin A1c 7.4 H (4.0-6.0) % Microbiology - Last 24 Hours (Table) 07/18/19 08:45 Urine Culture - Final Urine,Voided Assessment and Plan (1) Nausea & vomiting Narrative/Plan: 53-year-old female with multiple medical comorbidities presenting to the hospital with complaints of nausea and vomiting, with associated diarrhea which has improved and abdominal pain. Imaging studies including ultrasound of the abdomen and x-ray of the abdomen have been unremarkable. Patient did have EGD in 06/2019 with findings of antritis. She does report suffering from chronic constipation at baseline which has been present since her cholecystectomy. Colonoscopy on 06/2019 was incomplete due to poor prep. Amylase and lipase mildly elevated but likely secondary to dehydration on presentation. Unclear etiology, may be secondary to uncontrolled reflux, gastroenteritis, functional bowel disorder or other etiology. Current Visit: No Status: Acute Code(s): R11.2 - NAUSEA WITH VOMITING, UNSPECIFIED SNOMED Code(s): 41870687 (2) Abdominal pain Current Visit: No Status: Acute Code(s): R10.9 - UNSPECIFIED ABDOMINAL PAIN SNOMED Code(s): 91232198 Plan: Supportive care Okay for diet as tolerated Will initiate bowel regimen with MiraLAX daily, discussed with the patient extensively today and she is okay to obtain trait the medication to twice daily as needed for formed bowel movements and continue stimulant laxatives such as senna as needed for constipation Protonix 40 mg twice daily Dicyclomine 20 mg 4 times a day as needed for abdominal pain Continue to monitor symptomatically Follow-up after discharge for colonoscopy and further management with the GI service Okay for discharge from GI went otherwise medically stable Thank you for allowing us to participate in the care of this patient, the gastroenterology service will stand by, please call us back with any questions or concerns
[2019-07-21] MEDS: ONDANSETRON 4 MG/2 ML VIAL IVP SCH ×2 (00:22→07:50)
[2019-07-21] MEDS: HYDROcodone/APAP 10-325MG 1 EACH TAB PO PRN ×2 (00:22→11:05)
[2019-07-21 05:25] VITALS: BP 130/74; PULSE 81; RESP 14; TEMP 98.2
[2019-07-21 07:16] LABS: Glucose,Whole Blood 114 mg/dL (75-99)
[2019-07-21] MEDS: INSULIN ASPART (NovoLOG) 100 UNIT/ML VIAL SQ SCH ×2 (07:47→12:47)
[2019-07-21] MEDS: LISINOPRIL 2.5 MG TAB PO SCH (07:50)
[2019-07-21] MEDS: PANTOPRAZOLE 40 MG TABLET PO SCH (07:50)
[2019-07-21] MEDS: GLIMEPIRIDE 4 MG TAB PO SCH (07:50)
[2019-07-21] MEDS: POLYETHYLENE GLYCOL 3350 17 GM POWD.PACK PO SCH (07:50)
[2019-07-21] MEDS: SODIUM CHLORIDE 0.9% 1,000 ML IV SCH (07:51)
[2019-07-21] MEDS: metFORMIN 850 MG TAB PO SCH ×2 (07:51→12:47)
[2019-07-21] MEDS: HEPARIN SODIUM,PORCINE 5,000 UNIT/ML 1 ML VIAL SQ SCH (07:51)
--- NOTE | 2019-07-21 08:09 | P.PN ---
Subjective This is a pleasant 53 years old female with past medical history of gastroesophageal reflux disease, diabetes mellitus, hypertension, hyperlipidemia , osteoarthritis, chronic neck and back pain and she follow up with Dr. Godwin. Presents because of intractable nausea vomiting. Patient states that since Wednesday she started having intractable nausea vomiting associated with diarrhea, however her diarrhea stopped yesterday but her nausea vomiting persist despite she's been in the emergency room last Wednesday and she's been treated symptomatically and discharged home however she has no improvement so she decided to come to the hospital, associated with epigastric discomfort rather than pain radiating up to the mid chest, associated with runny nose and cough and with clear phlegm and central chest pain with coughing only, also patient has some sore throat. She denies dyspnea. Also she has generalized body aches and feeling fatigued. She smokes about 1-2 cigarettes per day as well as marijuana, no history of alcohol. On admission her vitals looks stable. Labs showed leukocytosis of 13 K, compared to baseline of 8.5-10.5. Mildly low potassium at 3.3, magnesium 1.9, sugar 217, creatinine 0.8, lipase 344, amylase 178. Chest x-ray no acute process In the emergency room patient was started on normal saline at 1.2 mL/h, cut antiacids and morphine 07/19/2019 Patient showed some improvement in her nausea vomiting however is still significantly bothering her, she had 4 episodes of vomiting since last night. No abdominal pain or epigastric discomfort. Abdominal exam looks benign. No bowel movementyet. Abdominal x-rays negative, exam is benign. Upper respiratory symptoms are also improving.labs have reviewedabnormal we will 7.6K, unremarkable CBC, BMP and liver enzymes. Potassium 3.1 replaced. 07/20/2019 Patient is fully awake resting in bed. She is gradually improving. Last time she vomited was yesterday morning 3, no vomiting since then, however she has persistent nausea while on clear liquid diet. Patient feels hungry and wants her diet to be advanced. No epigastric or abdominal pain or tenderness. No b owel movement or passing gases. Her upper respiratory symptoms are significantly improved. Vitals are stable. Abdominal ultrasound abdominal x- ray are negative. Labs from today still pending. Patient was started on Protonix, Bentyl and MiraLAX. Number normal saline to 75 mL/h. Patient was counseled to quit marijuana. Patient states she has been smoking marijuana since age 16. Old records are reviewed today. Patient had EGD/colonoscopy with Dr. Peters on 06/21/2019: We found no obvious organic and goes. Gastric biopsies showing normal gastric mucosa Also patient hemoglobin A1c came back as 7.4% which is elevated all the patient is on metformin 1000 twice a day andglimepiride 4 mg twice a day 07/21/2019 patient has no vomiting since yesterday morning however she still have nausea, she is tolerated liquid diet and now she wants to try regular diet. However patient is still symptomatic and struggles with her eating and she might need to to stay in Hospital depending on how she does.Pathologist Adjusted Some of Her Medication. I Discussed with the Patient the Possibility of Functional Impairment of Her Stomach from Combination of Gastroparesis Plus Cannabinoids Cyclic Vomiting, Versus Other like Irritable Bowel Syndrome. However the Plan for Her Is to Treat Her Symptomatically and Discharged Her to Follow-Up with Her PCP and Tire Assembler and Surgeon. As Patient Saw Dr. Albright or Recently Who He Did EGD and Colonoscopy As above. In the meantime we increase in her metformin, and we'll monitor her sugar. And continue with IV fluids discussed in details with the patient and the staff Review of systems CONSTITUTIONAL: No fever, no malaise, no fatigue. HEENT: No recent visual problems or hearing problems. Denied any sore throat. CARDIOVASCULAR: No orthopnea, PND, no palpitations, no syncope. PULMONARY: No shortness of breath, no cough, no hemoptysis. GASTROINTESTINAL: No diarrhea, no abdominal pain. Normoactive bowel sounds. NEUROLOGICAL: No headaches, no weakness, no numbness. HEMATOLOGICAL: Denies any bleeding or petechiae. GENITOURINARY: Denies any burning micturition, frequency, or urgency. MUSCULOSKELETAL/RHEUMATOLOGICAL: Denies any joint pain, swelling, or any muscle pain. ENDOCRINE: Denies any polyuria or polydipsia. Active Medications Generic Name Dose Route Start Last Admin Trade Name Freq PRN Reason Stop Dose Admin Hydrocodone Bitart/Acetaminophen 1 each 07/18/19 13:39 07/21/19 00:22 [place] 10 PO 1 each QID PRN Administration MODERATE Pain Dicyclomine HCl 20 mg 07/19/19 12:40 07/19/19 13:02 Bentyl PO 20 mg QID PRN Administration Dyspepsia Glimepiride 4 mg 07/18/19 21:00 07/21/19 07:50 Amaryl PO 4 mg BID SINGH Administration Heparin Sodium (Porcine) 5,000 unit 07/18/19 21:00 07/21/19 07:51 Heparin SQ 5,000 unit Q12HR SINGH Administration Hydromorphone HCl 0.5 mg 07/18/19 11:15 Dilaudid IVP Q3HR PRN SEVERE Pain Sodium Chloride 1,000 mls @ 75 mls/hr 07/18/19 11:15 07/21/19 07:51 Saline 0.9% IV 75 mls/hr .[id number] SINGH Administration Insulin Aspart 0 unit 07/18/19 12:30 07/21/19 07:47 Novolog SQ Not Given ACHS [facility] Protocol Lisinopril 2.5 mg 07/19/19 09:00 07/21/19 07:50 Zestril PO 2.5 mg DAILY SINGH Administration Metformin HCl 850 mg 07/20/19 23:00 07/21/19 07:51 Glucophage PO 850 mg TID-W/MEALS SINGH Administration Miscellaneous Information 1 each 07/18/19 13:59 Potassium Per Protocol MISCELLANE DAILY PRN Per Protocol Protocol Miscellaneous Information 1 each 07/18/19 13:59 Magnesium Per Protocol MISCELLANE DAILY PRN Per Protocol Protocol Miscellaneous Information 1 each 07/19/19 11:44 Potassium Per Protocol MISCELLANE DAILY PRN Per Protocol Protocol Naloxone HCl 0.2 mg 07/18/19 11:15 Narcan IV Q2M PRN Opioid Reversal Ondansetron HCl 4 mg 07/19/19 16:00 07/21/19 07:50 Zofran IVP 4 mg Q8HR SINGH Administration Pantoprazole Sodium 40 mg 07/20/19 17:30 07/21/19 07:50 Protonix PO 40 mg AC-BID SINGH Administration Polyethylene Glycol 17 gm 07/19/19 13:45 07/21/19 07:50 Miralax PO 17 gm DAILY SINGH Administration Trimethobenzamide HCl 300 mg 07/19/19 10:48 Tigan PO TID PRN Nausea And Vomiting Objective - Vital Signs Vital signs: Vital Signs Temp 98.2 F 07/21/19 05:19 Pulse 81 07/21/19 05:19 Resp 14 07/21/19 05:19 BP 130/74 07/21/19 05:19 Pulse Ox 99 07/21/19 05:19 Intake & Output 07/20/19 07/21/19 07/21/19 18:59 06:59 18:59 Intake Total 780 Balance 780 Weight 83.915 kg Intake: IV 600 Sodium Chloride 0.9% 1, 600 000 ml @ 75 mls/hr IV . [id number] SINGH Rx#:[id number] Oral 180 Other: # Voids 1 - Exam GENERAL: The patient is alert and oriented x3, not in any acute distress. Well developed, well nourished. HEENT: Pupils are round and equally reacting to light. EOMI. No scleral icterus. No conjunctival pallor. Normocephalic, atraumatic. No pharyngeal erythema. No thyromegaly. CARDIOVASCULAR: S1 and S2 present. No murmurs, rubs, or gallops. PULMONARY: Chest is clear to auscultation, no wheezing or crackles. ABDOMEN: Soft, nontender, nondistended, normoactive bowel sounds. No palpable organomegaly. MUSCULOSKELETAL: No joint swelling or deformity. EXTREMITIES: No cyanosis, clubbing, or pedal edema. NEUROLOGICAL: Gross neurological examination did not reveal any focal deficits. SKIN: No rashes. no petechiae. - Labs CBC & Chem 7: 07/20/19 09:16 07/20/19 16:15 Labs: Abnormal Lab Results - Last 24 Hours (Table) 07/20/19 07/20/19 07/20/19 Range/Units 09:16 11:57 17:02 Sodium 136 L (137-145) mmol/L Potassium 3.2 L (3.5-5.1) mmol/L Glucose 186 H (74-99) mg/dL POC Glucose (mg/dL) 168 H 116 H (75-99) mg/dL 07/20/19 07/21/19 Range/Units 20:01 07:12 Sodium (137-145) mmol/L Potassium (3.5-5.1) mmol/L Glucose (74-99) mg/dL POC Glucose (mg/dL) 112 H 114 H (75-99) mg/dL Assessment and Plan Assessment: Intractable nausea vomiting. Most likely multifactorial related to marijuana (cannabinoid hyperemesis syndrome) with possible elements of diabetic gastroparesis Diabetes mellitus, uncontrolled with hemoglobin A1c of 7.4%. Upper respiratory symptoms with, improved mildly elevated lipase and amylase suspicious for mild pancreatitis. No abdominal pain and patient is tolerating diet Gastroesophageal reflux disease Substance abuse, including marijuana nicotine dependence Hypertension Hyperlipidemia Primary osteoarthritis Chronic neck and back pain Plan: This is a pleasant 53 years old female who presents with intractable nausea vomiting. Continue with antiemetics Zofran and Tigan. continue with symptomatic treatment. continue with iv hydration. Check occult blood in stool, and placed the patient on insulin sliding scale.GI consult is appreciated.Consult dietitian Labs and medication were reviewed.. Continue same treatment. Continue with symptomatic treatment. Resume home medication. Monitor lytes and vitals. DVT and GI prophylaxis. Further recommendations of the clinical course of the patie nt DVT prophylaxis: Subcutaneous heparin GI Prophylaxis: Protonix Prognosis is guarded
[2019-07-21 08:41] LABS: African American GFR (CKD) >90 (>60 ml/min/1.73 sqM); Anion Gap 4 mmol/L; Blood Urea Nitrogen 8 mg/dL (7-17); Calcium 8.8 mg/dL (8.4-10.2); Carbon Dioxide 29 mmol/L (22-30); Chloride 106 mmol/L (98-107); Glucose 108 mg/dL (74-99); Magnesium 1.8 mg/dL (1.6-2.3); Non-African American GFR(CKD) >90 (>60 ml/min/1.73 sqM); Potassium 3.8 mmol/L (3.5-5.1); Sodium 139 mmol/L (137-145)
[2019-07-21 12:32] LABS: Glucose,Whole Blood 182 mg/dL (75-99)
--- NOTE | 2019-07-21 13:30 | P.DS ---
Providers Date of admission: 07/18/19 11:00 Attending physician: Suraj Briseno MD Primary care physician: Derick Laurent [facility] Course: diagnoses: Intractable nausea vomiting. Most likely multifactorial related to marijuana (cannabinoid hyperemesis syndrome) with possible elements of diabetic gastroparesis Diabetes mellitus, uncontrolled with hemoglobin A1c of 7.4%. Upper respiratory symptoms with, improved mildly elevated lipase and amylase suspicious for mild pancreatitis. No abdominal pain and patient is tolerating diet Gastroesophageal reflux disease Substance abuse, including marijuana nicotine dependence Hypertension Hyperlipidemia Primary osteoarthritis Chronic neck and back pain hospital course: This is a pleasant 53 years old female with past medical history of gastroesophageal reflux disease, diabetes mellitus, hypertension, hyperlipi demia, osteoarthritis, chronic neck and back pain and she follow up with Dr. Garcia. Presents because of intractable nausea vomiting. Patient states that since Wednesday she started having intractable nausea vomiting associated with diarrhea, however her diarrhea stopped yesterday but her nausea vomiting persist despite she's been in the emergency room last Wednesday and she's been treated symptomatically and discharged home however she has no improvement so she decided to come to the hospital, associated with epigastric discomfort rather than pain radiating up to the mid chest. She smokes about 1-2 cigarettes per day as well as marijuana, no history of alcohol.She is To diabetic for many years, her hemoglobin A1c was13.0% 2014, currently is 7.4. Abdominal ultrasound abdominal x-ray are negative. Patient had EGD/colonoscopy with Dr. Trevino on 06/21/2019: which found no obvious organic problem. Gastric biopsies showing normal gastric mucosa. The patient has been treated empirically with IV fluids and antiemetic. Family Centered Specialist evaluated the patient and I did review medication like mental home MiraLAX. Patient showed interval improvement and she tolerated diet well. No more vomiting since yesterday morning. No chest pain or dyspnea. No other symptoms. No change in urine output. No fever Patient thinks that medication helped her including Bentyl, MiraLAX, Protonix a nd Zofran Patient was cleared for discharge by science faculty member with a recommendation for outpatient follow-up Problems and management plan were discussed with the patient and he verbalized understanding and acceptance Patient was found stable and can be discharged home however he needs follow-up as an outpatient. Patient was instructed to follow up with PCP within one week and patient agrees and skin clips provided to her upon her requestand Dr. Reynolds whom she saw last admission and she agrees. Patient's wants to make her on appointments Gen: patient is a AAOx3, no distress CVS: S1-S2, RRR, no murmur Lungs: B/L CTA, no wheezing Abdomen: soft, no distention, no tenderness, positive bowel sounds Extremity: no leg edema or induration Time s Patient Condition at Discharge: Fair Plan - Discharge Summary Discharge Rx Participant: No New Discharge Prescriptions: New Pantoprazole [Protonix] 40 mg PO AC-BID #60 tablet. Dicyclomine [Bentyl] 20 mg PO QID PRN #10 tab PRN Reason: Dyspepsia Polyethylene Glycol 3350 [Miralax] 17 gm PO DAILY #3 powd.pack Ondansetron [Zofran] 4 mg PO Q8HR PRN #20 tab PRN Reason: Nausea And Vomiting Continue Lisinopril [Zestril] 2.5 mg PO DAILY No Action metFORMIN HCL [Glucophage] 1,000 mg PO BID Hydrocodone/Acetaminophen [[place] 10-325] 1 tab PO QID PRN PRN Reason: Pain Glimepiride [Amaryl] 4 mg PO BID Ertugliflozin Pidolate [Steglatro] 15 mg PO DAILY Discharge Medication List Ertugliflozin Pidolate [Steglatro] 15 mg PO DAILY 12/09/18 [History] Glimepiride [Amaryl] 4 mg PO BID 12/09/18 [History] Hydrocodone/Acetaminophen [[place] 10-325] 1 tab PO QID PRN 12/09/18 [History] metFORMIN HCL [Glucophage] 1,000 mg PO BID 12/09/18 [History] Lisinopril [Zestril] 2.5 mg PO DAILY 07/18/19 [History] Pantoprazole [Protonix] 40 mg PO AC-BID #60 tablet. 07/20/19 [Rx] Dicyclomine [Bentyl] 20 mg PO QID PRN #10 tab 07/21/19 [Rx] Ondansetron [Zofran] 4 mg PO Q8HR PRN #20 tab 07/21/19 [Rx] Polyethylene Glycol 3350 [Miralax] 17 gm PO DAILY #3 powd.pack 12/13/19 [Rx] Follow up Appointment(s)/Referral(s): Jenny Sepulveda MD [Primary Care Provider] - 1-2 days Dominique Swain NPC [Nurse Practitioner] - 2 Weeks (outpatient colonoscopy ) Abdullahi Trevino MD [STAFF PHYSICIAN] - 1 Week Patient Instructions/Handouts: Cyclic Vomiting Syndrome (DC)
== END 2019-07-21 14:47 | disposition home or self-care (01) ==
LOC: EC 08:32 → 4MS4W 11:00
PROVIDERS: ADMIT Internal Medicine; ATTEND Internal Medicine
DX: R11.2 Nausea with vomiting, unspecified (principal); R10.13 Epigastric pain; R07.9 Chest pain, unspecified; E11.65 Type 2 diabetes mellitus with hyperglycemia; R09.89 Other specified symptoms and signs involving the circulatory and respiratory systems; R05 Cough; J02.9 Acute pharyngitis, unspecified; I73.00 Raynaud's syndrome without gangrene; R74.8 Abnormal levels of other serum enzymes; K21.9 Gastro-esophageal reflux disease without esophagitis; F12.10 Cannabis abuse, uncomplicated; E86.0 Dehydration; F17.210 Nicotine dependence, cigarettes, uncomplicated; I10 Essential (primary) hypertension; E78.5 Hyperlipidemia, unspecified; M19.90 Unspecified osteoarthritis, unspecified site; G89.29 Other chronic pain; M54.2 Cervicalgia; M54.9 Dorsalgia, unspecified; K59.09 Other constipation; F41.9 Anxiety disorder, unspecified; F32.9 Major depressive disorder, single episode, unspecified; F41.0 Panic disorder [episodic paroxysmal anxiety]; E66.9 Obesity, unspecified; Z68.27 Body mass index [BMI] 27.0-27.9, adult; Z87.19 Personal history of other diseases of the digestive system; Z90.49 Acquired absence of other specified parts of digestive tract; Z79.899 Other long term (current) drug therapy; Z79.84 Long term (current) use of oral hypoglycemic drugs; Z79.891 Long term (current) use of opiate analgesic; Z86.32 Personal history of gestational diabetes; Z98.890 Other specified postprocedural states; Z98.51 Tubal ligation status; Z98.42 Cataract extraction status, left eye; Z98.41 Cataract extraction status, right eye; Z96.1 Presence of intraocular lens; Z71.51 Drug abuse counseling and surveillance of drug abuser; Z83.79 Family history of other diseases of the digestive system
CPT/HCPCS: 96376 ×4; 96361 ×3; 96365; 96366; 96367 ×2; 96372 ×4; 96375; 99285; 36415; 93005; 80053; 80048 ×3; 80076; 82150; 83690; 83735 ×4; 84132; 84484; 85025 ×3; 85610; 85730; 81001; 87086; 87430; 87502; 83036; 71046; 74019; 76700; G0378 ×4; J2270; J1644 ×4; J2405 ×4; J0696; J1885; J3475; J3480; C9113 ×3

== ENCOUNTER 2020-08-19 03:10 | Inpatient (IN) | payer OTHER ==
[2020-08-19] MEDS ORDERED: MORPHINE SULFATE 4 MG/ML SYRINGE IV STA (03:32)
[2020-08-19] MEDS ORDERED: ONDANSETRON 4 MG/2 ML VIAL IVP STA (03:32)
[2020-08-19] MEDS ORDERED: SODIUM CHLORIDE 0.9% 1,000 ML IV STA ×2 (03:32)
[2020-08-19] MEDS ORDERED: SODIUM CHLORIDE 0.9% 500 ML 500 ML IV STA (03:32)
[2020-08-19] MEDS ORDERED: KETOROLAC 15 MG/ML 1 ML VIAL IVP STA (03:33)
[2020-08-19] MEDS ORDERED: PANTOPRAZOLE 40 MG/10 ML VIAL IVP STA (03:34)
--- NOTE | 2020-08-19 03:34 | ED ---
Weakness HPI - General Chief complaint: Nausea/Vomiting/Diarrhea Stated complaint: NVD Time Seen by Provider: 08/19/20 03:11 Source: patient, EMS, RN notes reviewed, old records reviewed Mode of arrival: EMS Limitations: no limitations - History of Present Illness Initial comments: This is a 54-year-old female DF for evaluation she presents today for nausea vomiting bodyaches body pain she'll weakness and fever. Patient denies coronavirus exposure but admits increased shortness of breath increased outpatient blood sugar elevation. Some sweating. Mainly complaining of body aches and pains with nausea and vomiting MD Complaint: generalized weakness, lack of energy -: days(s) Location: generalized Severity: severe Severity scale (1-10): 8 Quality: tingling, aching Consistency: constant Improves with: none Worsens with: none Context: recent illness Associated Symptoms: fever/chills, loss of appetite, nausea/vomiting, shortness of breath - Related Data Home Medications Medication Instructions Recorded Confirmed Ertugliflozin Pidolate [Steglatro] 15 mg PO DAILY 12/09/18 10/03/19 Glimepiride [Amaryl] 4 mg PO BID 12/09/18 10/03/19 Hydrocodone/Acetaminophen [[place] 1 tab PO QID PRN 12/09/18 10/03/19 10-325] metFORMIN HCL [Glucophage] 1,000 mg PO BID 12/09/18 10/03/19 DULoxetine HCL [Cymbalta] 60 mg PO DAILY 10/03/19 10/03/19 Losartan [Cozaar] 25 mg PO DAILY 10/03/19 10/03/19 tiZANidine [Zanaflex] 2 mg PO BID PRN 10/03/19 10/03/19 Previous Rx's Medication Instructions Recorded Dicyclomine [Bentyl] 20 mg PO QID PRN #10 tab 07/21/19 Ondansetron [Zofran] 4 mg PO Q8HR PRN #20 tab 07/21/19 polyethylene glycoL 3350 [Miralax] 17 gm PO DAILY #3 powd.pack 07/21/19 Allergies Allergy/AdvReac Type Severity Reaction Status Date / Time No Known Allergies Allergy Verified 10/03/19 12:55 Review of Systems ROS Statement: Those systems with pertinent positive or pertinent negative responses have been documented in the HPI. ROS Other: All systems not noted in ROS Statement are negative. Past Medical History Past Medical History: Diabetes Mellitus, GERD/Reflux, Hyperlipidemia, Hypertension, Osteoarthritis (OA) Additional Past Medical History / Comment(s): back & neck pain, neuropathy feet, states having constipation & stomach pain. History of Any Multi-Drug Resistant Organisms: None Reported Past Surgical History: Back Surgery, Section, Cholecystectomy, Tubal Ligation Additional Past Surgical History / Comment(s): , bilateral cataracts with implants Past Anesthesia/Blood Transfusion Reactions: No Reported Reaction, Motion Sickness Past Psychological History: Anxiety, Depression, Panic Disorder Smoking Status: Current some day smoker Past Alcohol Use History: None Reported Past Drug Use History: Marijuana - Past Family History Father Family Medical History: Liver Disease Additional Family Medical History / Comment(s): Father of liver disease. Mother Family Medical History: No Reported History Additional Family Medical History / Comment(s): . General Exam Limitations: no limitations General appearance: alert, in no apparent distress, anxious Head exam: Present: atraumatic, normocephalic, normal inspection Eye exam: Present: normal appearance, PERRL, EOMI. Absent: scleral icterus, conjunctival injection, periorbital swelling ENT exam: Present: normal exam, mucous membranes moist Neck exam: Present: normal inspection. Absent: tenderness, meningismus, lymphadenopathy Respiratory exam: Present: normal lung sounds bilaterally. Absent: respiratory distress, wheezes, rales, rhonchi, stridor Cardiovascular Exam: Present: normal rhythm, tachycardia, normal heart sounds. Absent: systolic murmur, diastolic murmur, rubs, gallop, clicks GI/Abdominal exam: Present: soft, normal bowel sounds. Absent: distended, tenderness, guarding, rebound, rigid Extremities exam: Present: normal inspection, full ROM, normal capillary refill. Absent: tenderness, pedal edema, joint swelling, calf tenderness Back exam: Present: normal inspection Neurological exam: Present: alert, oriented X3, CN II-XII intact Psychiatric exam: Present: normal affect, normal mood Skin exam: Present: warm, dry, intact, normal color. Absent: rash Course Vital Signs 08/19/20 08/19/20 03:11 04:43 Temperature 100.1 F H 98.4 F Pulse Rate 114 H 108 H Respiratory 20 18 Rate Blood Pressure 174/92 156/93 O2 Sat by Pulse 100 100 Oximetry - Reevaluation(s) Reevaluation #1: 08/19/20 05:13 Medical records reviewed Reevaluation #2: 08/19/20 05:13 Patient has history of similar, symptoms worse Reevaluation #3: 08/19/20 05:24 symptoms continue to improve - Consultations Consultation #1: Spoke with [facility] will agree to admit this patient Procedures - Sepsis Sepsis Focused Exam #1 Time Sepsis Criteria Met: 05:16 Sepsis Focused Exam Date: 08/19/20 Sepsis Focused Exam Time: 07:00 Sepsis Focused Exam Complete: Yes Vital Signs & RN Notes Reviewed: Yes Capillary Refill: < 2 Seconds: Fingers, Toes Peripheral Pulses: Normal: Radial (R), Radial (L), Posterior Tibialis (R), Posterior Tibialis (L), Dorsalis Pedis (R), Dorsalis Pedis (L) Skin Color: Normal for Patient Respiratory Exam: normal lung sounds Cardiovascular Exam: bradycardia Medical Decision Making - Medical Decision Making 54 female DF for evaluation persistent nausea vomiting and diarrhea, severe abdominal pain bodyaches and pains and fever today. Patient will be admitted to rule out of coronavirus versus influenza complicated by diabetes and nausea vomiting. Will admit for persistent hydration and further evaluation management - Lab Data Result diagrams: 08/19/20 03:39 08/19/20 03:39 Lab Results 08/19/20 08/19/20 08/19/20 Range/Units 03:39 03:39 03:39 WBC 14.0 H (3.8-10.6) k/uL RBC 5.09 (3.80-5.40) m/uL Hgb 14.4 (11.4-16.0) gm/dL Hct 43.7 (34.0-46.0) % MCV 86.0 (80.0-100.0) fL MCH 28.2 (25.0-35.0) pg MCHC 32.9 (31.0-37.0) g/dL RDW 14.8 (11.5-15.5) % Plt Count 221 (150-450) k/uL MPV 10.2 Neutrophils % 89 % Lymphocytes % 7 % Monocytes % 3 % Eosinophils % 0 % Basophils % 0 % Neutrophils # 12.4 H (1.3-7.7) k/uL Lymphocytes # 1.0 (1.0-4.8) k/uL Monocytes # 0.4 (0-1.0) k/uL Eosinophils # 0.0 (0-0.7) k/uL Basophils # 0.0 (0-0.2) k/uL Sodium 143 (137-145) mmol/L Potassium 3.9 (3.5-5.1) mmol/L Chloride 110 H (98-107) mmol/L Carbon Dioxide 18 L (22-30) mmol/L Anion Gap 15 mmol/L BUN 16 (7-17) mg/dL Creatinine 0.76 (0.52-1.04) mg/dL Est GFR (CKD-EPI)AfAm >90 (>60 ml/min/1.73 sqM) Est GFR (CKD-EPI)NonAf >90 (>60 ml/min/1.73 sqM) Glucose 312 H (74-99) mg/dL POC Glucose (mg/dL) (75-99) mg/dL POC Glu Reformatory Attendant ID Plasma Lactic Acid Abilio 6.3 H* (0.7-2.0) mmol/L Calcium 8.5 (8.4-10.2) mg/dL Phosphorus 4.6 H (2.5-4.5) mg/dL Magnesium 1.5 L (1.6-2.3) mg/dL Total Bilirubin 0.6 (0.2-1.3) mg/dL AST 30 (14-36) U/L ALT 25 (4-34) U/L Alkaline Phosphatase 90 (38-126) U/L Lactate Dehydrogenase 677 H (313-618) U/L Creatine Kinase 38 (30-135) U/L C-Reactive Protein <5.0 (<10.0) mg/L Total Protein 6.9 (6.3-8.2) g/dL Albumin 3.8 (3.5-5.0) g/dL Acetone, Qual Positive (Negative) Coronavirus (PCR) (Not Detectd) 08/19/20 08/19/20 Range/Units 04:15 04:47 WBC (3.8-10.6) k/uL RBC (3.80-5.40) m/uL Hgb (11.4-16.0) gm/dL Hct (34.0-46.0) % MCV (80.0-100.0) fL MCH (25.0-35.0) pg MCHC (31.0-37.0) g/dL RDW (11.5-15.5) % Plt Count (150-450) k/uL MPV Neutrophils % % Lymphocytes % % Monocytes % % Eosinophils % % Basophils % % Neutrophils # (1.3-7.7) k/uL Lymphocytes # (1.0-4.8) k/uL Monocytes # (0-1.0) k/uL Eosinophils # (0-0.7) k/uL Basophils # (0-0.2) k/uL Sodium (137-145) mmol/L Potassium (3.5-5.1) mmol/L Chloride (98-107) mmol/L Carbon Dioxide (22-30) mmol/L Anion Gap mmol/L BUN (7-17) mg/dL Creatinine (0.52-1.04) mg/dL Est GFR (CKD-EPI)AfAm (>60 ml/min/1.73 sqM) Est GFR (CKD-EPI)NonAf (>60 ml/min/1.73 sqM) Glucose (74-99) mg/dL POC Glucose (mg/dL) 270 H (75-99) mg/dL POC Glu Reformatory Attendant ID Huang Sarah Plasma Lactic Acid Abilio (0.7-2.0) mmol/L Calcium (8.4-10.2) mg/dL Phosphorus (2.5-4.5) mg/dL Magnesium (1.6-2.3) mg/dL Total Bilirubin (0.2-1.3) mg/dL AST (14-36) U/L ALT (4-34) U/L Alkaline Phosphatase (38-126) U/L Lactate Dehydrogenase (313-618) U/L Creatine Kinase (30-135) U/L C-Reactive Protein (<10.0) mg/L Total Protein (6.3-8.2) g/dL Albumin (3.5-5.0) g/dL Acetone, Qual (Negative) Coronavirus (PCR) Not Detected (Not Detectd) - Radiology Data Radiology results: report reviewed (Chest x-rays negative for acute disease), im age reviewed Critical Care Time Critical Care Time: Yes Total Critical Care Time: 31 Disposition Clinical Impression: Dehydration, Intractable vomiting, Abdominal pain, Intractable abdominal pain, Uncontrolled diabetes mellitus, Sepsis Disposition: ADMITTED IP TO THIS HOSP Condition: Fair Is patient prescribed a controlled substance at d/c from ED?: No Referrals: Jenny Sepulveda MD [Primary Care Provider] - 1-2 days
[2020-08-19] MEDS ORDERED: ACETAMINOPHEN IV (For NPO) 1,000 MG in EMPTY BAG 1 BAG IVPB ONE (03:45)
[2020-08-19 03:55] LABS: Basophils % (A) 0 %; Eosinophils % (A) 0 %; HCT 43.7 % (34.0-46.0); HGB 14.4 gm/dL (11.4-16.0); Lymphocytes % (A) 7 %; MCH 28.2 pg (25.0-35.0); MCHC 32.9 g/dL (31.0-37.0); Mean Platelet Volume 10.2; Monocytes # (A) 0.4 k/uL (0-1.0); Monocytes % (A) 3 %; Neutrophils # (A) 12.4 k/uL (1.3-7.7); Neutrophils % (A) 89 %; Platelet Count 221 k/uL (150-450); RBC 5.09 m/uL (3.80-5.40); RDW 14.8 % (11.5-15.5)
[2020-08-19 04:10] LABS: AST 30 U/L (14-36); African American GFR (CKD) >90 (>60 ml/min/1.73 sqM); Albumin 3.8 g/dL (3.5-5.0); Alkaline Phosphatase 90 U/L (38-126); Anion Gap 15 mmol/L; Blood Urea Nitrogen 16 mg/dL (7-17); C Reactive Protein <5.0 mg/L (<10.0); Calcium 8.5 mg/dL (8.4-10.2); Carbon Dioxide 18 mmol/L (22-30); Chloride 110 mmol/L (98-107); Creatine Kinase 38 U/L (30-135); Glucose 312 mg/dL (74-99); LDH 677 U/L (313-618); Magnesium 1.5 mg/dL (1.6-2.3); Non-African American GFR(CKD) >90 (>60 ml/min/1.73 sqM); Phosphorus 4.6 mg/dL (2.5-4.5); Sodium 143 mmol/L (137-145); Total Bilirubin 0.6 mg/dL (0.2-1.3); Total Protein 6.9 g/dL (6.3-8.2)
[2020-08-19] MEDS ORDERED: SODIUM CHLORIDE 0.9% 2,000 ML IV STA (04:10)
[2020-08-19 04:15] LABS: ALT 25 U/L (4-34); Potassium 3.9 mmol/L (3.5-5.1)
--- NOTE | 2020-08-19 04:23 | XR ---
EXAM: XR Abdomen, 1 View CLINICAL HISTORY: Abdominal pain. TECHNIQUE: Frontal supine view of the abdomen/pelvis. COMPARISON: 07/19/2019. FINDINGS: Gastrointestinal tract: Nonspecific bowel gas pattern. No dilation. Organs: Status post cholecystectomy. Bones/joints: Postsurgical changes of the lower lumbar spine are again noted, unchanged. Vasculature: Left pelvic phlebolith. Other findings: Mild to moderate quantity of stool. IMPRESSION: Nonspecific bowel gas pattern.
--- NOTE | 2020-08-19 04:24 | XR ---
EXAM: XR Chest, 1 View CLINICAL HISTORY: ITS.REASON XR Reason: Suspected COVID-19 pneumonia TECHNIQUE: Frontal view of the chest. COMPARISON: 07/18/2019. FINDINGS: Lungs: The lungs are well aerated. No consolidative change. Pleural space: No pleural effusion. No pneumothorax. Heart: Cardiomediastinal silhouette unremarkable. Mediastinum: See above. Bones/joints: The ribs and the thoracic spine are unremarkable. Upper abdomen: The patient is status post cholecystectomy. IMPRESSION: No active disease, similar to that noted on the previous study.
[2020-08-19 04:49] LABS: Glucose,Whole Blood 270 mg/dL (75-99)
[2020-08-19] MEDS ORDERED: MORPHINE SULFATE 4 MG/ML SYRINGE IV PRN (05:10)
[2020-08-19 05:44] LABS: Appearance,Urine Clear (Clear); Bilirubin,Urine Negative (Negative); Blood,Urine Trace (Negative); Color,Urine Light Yellow; Glucose,Urine (UA) 4+ (Negative); Leukocyte Esterase,Urine Negative (Negative); Nitrite,Urine Negative (Negative); Protein,Urine 1+ (Negative); RBC,Urine 2 /hpf (0-5); Specific Gravity,Urine 1.034 (1.001-1.035); Squamous Epithelial Cell,Urine 1 /hpf (0-4); Urobilinogen,Urine <2.0 mg/dL (<2.0); WBC,Urine <1 /hpf (0-5)
[2020-08-19 05:47] LABS: Ketones,Urine 2+ (Negative)
[2020-08-19 06:50] LABS: VBG PH 7.33 (7.31-7.41)
[2020-08-19 07:01] LABS: Glucose,Whole Blood 237 mg/dL (75-99)
[2020-08-19] MEDS: INSULIN ASPART (NovoLOG) 100 UNIT/ML VIAL SQ SCH ×3 (07:04→17:28)
[2020-08-19] MEDS: ACETAMINOPHEN TAB 325 MG TAB PO PRN ×2 (09:24→20:49)
[2020-08-19] MEDS: PANTOPRAZOLE 40 MG/10 ML VIAL IV SCH (09:29)
[2020-08-19 13:26] LABS: Glucose,Whole Blood 125 mg/dL (75-99)
[2020-08-19] MEDS: ONDANSETRON 4 MG/2 ML VIAL IVP PRN (14:58)
[2020-08-19] MEDS: SODIUM CHLORIDE 0.9% 1,000 ML IV SCH (17:00)
--- NOTE | 2020-08-19 17:25 | P.CNPUL ---
History of Present Illness Consult date: 08/19/20 Requesting physician: Keyur Neff Reason for consult: other Chief complaint: COVID 19 infection, lactic acidosis, dehydration History of present illness: This is a 54-year-old adult female patient with past medical history of hypertension, hyperlipidemia, diabetes mellitus type 2, GERD/reflux, osteoarthritis, chronic back and neck pain, diabetic neuropathy, anxiety, depression, current some day smoker who presented emergency department on 08/19/2020 with complaints of nausea vomiting, diarrhea, body aches, body pain weakness and fever. She denied a Coronavirus exposure. Denies any significant pulmonary symptoms, no shortness of breath or cough, she has been taking in fluids, however could not eating much, her rapid coronavirus PCR in the emergency department was negative, influenza screen was negative. Room air pulse ox was 96%, hemodynamically she is stable, she was febrile presentation with a temp of 100.1F. Chest x-ray showed no active pulmonary disease, KUB of the abdomen showed nonspecific bowel gas pattern. Lab data was reviewed, showing white blood cell count of 14, hemoglobin of 14.4, lymphocyte was within normal limits at 1.0, neutrophils elevated at 12.4 sodium 143, potassium 3.9, chloride is 110, CO2 is 18, 9 15, BUN 16 creatinine 0.76, glucose was elevated at 312, plasma lactic acid of 6.3, patient was fluid resuscitated she received 3 L in IV fluids and lactic acid is improved, down to 1.7, maintenance IV fluids to infusing at 130 ML per hour, she is in sinus mechanism, though controlled rate, she remains on room air, LDH was 677, CRP was less than 5, PTT was 38, LFTs were within normal limits, magnesium was 1.5, phosphorus was 4.6, urina lysis showed 1+ protein, 4+ glucose, 2+ ketones, trace blood, but no evidence of a urinary tract infection, serum acetone was positive. Patient was admitted to the intensive care unit as a overflow for selective care, is awake and alert in 3, in no acute distress Review of Systems All systems: negative Constitutional: Reports as per HPI, Reports anorexia, Reports chills, Reports fatigue, Reports fever, Reports malaise, Reports weakness Eyes: denies blurred vision, denies pain Ears, nose, mouth and throat: Denies headache, Denies sore throat Cardiovascular: Denies chest pain, Denies shortness of breath Respiratory: Denies cough Gastrointestinal: Denies abdominal pain, Denies diarrhea, Denies nausea, Denies vomiting Genitourinary: Denies dysuria, Denies hematuria Musculoskeletal: Denies myalgias Integumentary: Denies pruritus, Denies rash Neurological: Denies numbness, Denies weakness Psychiatric: Denies anxiety, Denies depression Endocrine: Denies fatigue, Denies weight change Past Medical History Past Medical History: Diabetes Mellitus, GERD/Reflux, Hyperlipidemia, Hypertension, Osteoarthritis (OA) Additional Past Medical History / Comment(s): back & neck pain, neuropathy feet, states having constipation & stomach pain. History of Any Multi-Drug Resistant Organisms: None Reported Past Surgical History: Back Surgery, Section, Cholecystectomy, Tubal Ligation Additional Past Surgical History / Comment(s): , bilateral cataracts with implants, back surgery 2x "cleaned my back canal" and a fusion Past Anesthesia/Blood Transfusion Reactions: No Reported Reaction, Motion Sickness Past Psychological History: Anxiety, Depression, Panic Disorder Additional Psychological History / Comment(s): . Smoking Status: Current every day smoker Past Alcohol Use History: None Reported Additional Past Alcohol Use History / Comment(s): STARTED SMOKING AT AGE 17 SMOKES 1/4- 1/2 PPD Past Drug Use History: Marijuana Additional Drug Use History / Comment(s): SMOKES MARIJUANA DAILY - Past Family History Father Family Medical History: Liver Disease Additional Family Medical History / Comment(s): Father of liver disease. Mother Family Medical History: No Reported History Additional Family Medical History / Comment(s): . Medications and Allergies Home Medications Medication Instructions Recorded Confirmed Type Ertugliflozin Pidolate [Steglatro] 15 mg PO DAILY 12/09/18 08/19/20 History Glimepiride [Amaryl] 4 mg PO BID 12/09/18 08/19/20 History metFORMIN HCL [Glucophage] 1,000 mg PO BID 12/09/18 08/19/20 History DULoxetine HCL [Cymbalta] 60 mg PO DAILY 10/03/19 08/19/20 History Cariprazine HCl [Vraylar] 1.5 mg PO DAILY 08/19/20 08/19/20 History Dicyclomine [Bentyl] 20 mg PO BID PRN 08/19/20 08/19/20 History Gabapentin 300 mg PO TID 08/19/20 08/19/20 History HYDROcodone/APAP 10-325MG [[place] 1 tab PO QID PRN 08/19/20 08/19/20 History 10-325] Losartan [Cozaar] 12.5 mg PO DAILY 08/19/20 08/19/20 History Meloxicam [Mobic] 15 mg PO DAILY 08/19/20 08/19/20 History Omeprazole 40 mg PO DAILY 08/19/20 08/19/20 History hydrOXYzine pamoate [Vistaril] 25 mg PO BID PRN 08/19/20 08/19/20 History tiZANidine [Zanaflex] 2 mg PO BID PRN 08/19/20 08/19/20 History Allergies Allergy/AdvReac Type Severity Reaction Status Date / Time No Known Allergies Allergy Verified 08/19/20 09:42 Physical Exam Vitals: Vital Signs Temp Pulse Resp BP Pulse Ox 08/19/20 16:00 98.2 F 80 15 146/81 96 08/19/20 14:00 89 10 L 128/75 98 08/19/20 12:00 98.3 F 82 12 119/63 97 08/19/20 10:00 83 11 L 128/76 96 08/19/20 08:00 98.1 F 92 16 121/64 96 08/19/20 07:00 95 18 121/64 97 08/19/20 06:50 94 16 121/64 95 08/19/20 06:40 96 24 121/64 97 08/19/20 06:30 97 22 121/64 98 08/19/20 06:20 98.0 F 96 20 121/64 96 08/19/20 06:13 96 08/19/20 05:48 97.7 F 102 H 18 122/63 98 08/19/20 04:43 98.4 F 108 H 18 156/93 100 08/19/20 03:11 100.1 F H 114 H 20 174/92 100 Intake and Output 08/19/20 08/19/20 08/19/20 06:59 14:59 22:59 Intake Total 650 Balance 650 Intake: IV 650 Sodium Chloride 0.9% 1, 650 000 ml @ 130 mls/hr IV . Q7H42M STA Rx#:[id number] Other: # Voids 1 # Bowel Movements 0 Weight 79.379 kg GENERAL EXAM: Alert, very pleasant, 54-year-old female, resting comfortably in bed, on room air, with pulse ox of 96% comfortable in no apparent distress. HEAD: Normocephalic/atraumatic. EYES: Normal reaction of pupils, equal size. Conjunctiva pink, sclera white. NOSE: Clear with pink turbinates. THROAT: No erythema or exudates. NECK: No masses, no JVD, no thyroid enlargement, no adenopathy. CHEST: No chest wall deformity. Symmetrical expansion. LUNGS: Equal air entry with no crackles, wheeze, rhonchi or dullness. CVS: Regular rate and rhythm, normal S1 and S2, no gallops, no murmurs, no rubs ABDOMEN: Soft, nontender. No hepatosplenomegaly, normal bowel sounds, no guarding or rigidity. EXTREMITIES: No clubbing, no edema, no cyanosis, 2+ pulses and upper and lower extremities. MUSCULOSKELETAL: Muscle strength and tone normal. SPINE: No scoliosis or deformity SKIN: No rashes CENTRAL NERVOUS SYSTEM: Alert and oriented -3. No focal deficits, tone is normal in all 4 extremities. PSYCHIATRIC: Alert and oriented -3. Appropriate affect. Intact judgment and insight. Results - Laboratory Findings CBC and BMP: 08/19/20 03:39 08/19/20 03:39 Abnormal lab findings: Abnormal Labs 08/19/20 08/19/20 08/19/20 03:39 03:39 03:39 WBC 14.0 H Neutrophils # 12.4 H VBG HCO3 Chloride 110 H Carbon Dioxide 18 L Glucose 312 H POC Glucose (mg/dL) Plasma Lactic Acid Abilio 6.3 H* Phosphorus 4.6 H Magnesium 1.5 L Lactate Dehydrogenase 677 H Urine Protein Urine Glucose (UA) Urine Ketones Urine Blood 08/19/20 08/19/20 08/19/20 04:47 05:24 06:28 WBC Neutrophils # VBG HCO3 23 L Chloride Carbon Dioxide Glucose POC Glucose (mg/dL) 270 H Plasma Lactic Acid Abilio Phosphorus Magnesium Lactate Dehydrogenase Urine Protein 1+ H Urine Glucose (UA) 4+ H Urine Ketones 2+ H Urine Blood Trace H 08/19/20 08/19/20 08/19/20 06:28 06:58 13:15 WBC Neutrophils # VBG HCO3 Chloride Carbon Dioxide Glucose POC Glucose (mg/dL) 237 H 125 H Plasma Lactic Acid Abilio 3.6 H* Phosphorus Magnesium Lactate Dehydrogenase Urine Protein Urine Glucose (UA) Urine Ketones Urine Blood - Diagnostic Findings Chest x-ray: report reviewed, image reviewed Assessment and Plan Plan: Assessment: #1. Rule out acute COVID 19 infection, patient presented primarily with symptoms of nausea, vomiting diarrhea, abdominal discomfort, body aches, fever, weakness, no pulmonary symptoms, no evidence of hypoxemia or pulmonary infiltrates on the chest x-ray. Rapid COVID 19 PCR in the emergency department was negative #2. Lactic acidosis related to dehydration, patient was fluid resuscitated, is down to 1.7 #3. Mild DKA, related to acute COVID 19 infection #4. Diabetes mellitus type 2 #5. Hypertension #6. Hyperlipidemia #7. GERD/reflux #8. Osteoarthritis #9. Chronic back and neck pain, neuropathy #10. Anxiety, depression Plan: Initial rapid COVID 19 PCR was negative, on of the PCR test has been sent and pending, patient is without any evidence of hypoxemia, no significant pulmonary symptoms, her symptoms are primarily GI symptoms, body aches, fever, no evidence of pulmonary infiltrates on the chest x-ray, patient has been fluid resuscitated, lactic acid has improved, we'll send a stat pro calcitonin, we'll send a d-dimer, patient is stable to go out of intensive care unit to general medical floor without remote telemetry, will continue to monitor I performed a history & physical examination of the patient and discussed their management with my nurse practitioner, Winifred Melton. I reviewed the nurse practitioner's note and agree with the documented findings and plan of care. Lung sounds are positive for diminished breath sounds. The findings and the impression was discussed with the patient. I attest to the documentation by the nurse practitioner. Time with Patient: Greater than 30
[2020-08-19 17:34] LABS: Glucose,Whole Blood 167 mg/dL (75-99)
--- NOTE | 2020-08-19 18:39 | P.HPIM ---
History of Present Illness H&P Date: 08/19/20 Chief Complaint: Nausea vomiting and diarrhea Ms. Luis is a 54-year-old female with a past medical history of hypertension, hyperlipidemia, diabetes mellitus, osteoporosis, GERD, chronic low back pain, diabetic neuropathy, anxiety and depression coming to the hospital stating that she has been having nausea vomiting and diarrhea ongoing for the past 2-3 days. Patient has also complains of generalized body aches, feeling extremely tired and weak. Patient states that she did not have fever at home but was having some chills. Patient denied having any exposure to gaines virus but mentions that [place] recently 7 deaths in her family related to COVID-19 in the month of July. Patient denies having any chest pain or palpitations. She denies having any cough or difficulty breathing. Patient states that she has very poor appetite. Patient denies having any dysuria or hematuria. She denies having any headaches, changes in her vision or speech abnormalities. Patient denies having any recent travel. She denies having any swelling of her lower extremities. In the ER, patient's vitals at the time of admission temperature 100.1, tachycardic at 114, blood pressure 174.92 saturating at 100% on room air. She had a chest x-ray showing no acute cardiopulmonary process and KUB done showing nonspecific bowel gas pattern. On reviewing her labs she had a white count of 14, hemoglobin 14.4, platelets 221. Sodium 143, duration 3.9, chloride 110, bicarbonate 18, BUN 16, creatinine 0.76 blood sugars have been around 300. UA is positive for 4+ glucose, trace blood, negative leukocyte esterase and negative for nitrites. Coronavirus PCR is negative, influenza A and B is negative. She is admitted for evaluation and management. Review of Systems REVIEW OF SYSTEMS: CONSTITUTIONAL: as per HPI HEENT: No recent visual problems or hearing problems. Denied any sore throat. CARDIOVASCULAR: No chest pain, orthopnea, PND, no palpitations, no syncope. PULMONARY:no hemoptysis. GASTROINTESTINAL: As per HPI NEUROLOGICAL: No headaches, no weakness, no numbness. HEMATOLOGICAL: Denies any bleeding or petechiae. GENITOURINARY: Denies any burning micturition, frequency, or urgency. MUSCULOSKELETAL/RHEUMATOLOGICAL: As per HPI ENDOCRINE: Denies any polyuria or polydipsia. The rest of the 14-point review of systems is negative. Past Medical History Past Medical History: Diabetes Mellitus, GERD/Reflux, Hyperlipidemia, Hypertension, Osteoarthritis (OA) Additional Past Medical History / Comment(s): back & neck pain, neuropathy feet, states having constipation & stomach pain. History of Any Multi-Drug Resistant Organisms: None Reported Past Surgical History: Back Surgery, Section, Cholecystectomy, Tubal Ligation Additional Past Surgical History / Comment(s): , bilateral cataracts with implants, back surgery 2x "cleaned my back canal" and a fusion Past Anesthesia/Blood Transfusion Reactions: No Reported Reaction, Motion Sickness Past Psychological History: Anxiety, Depression, Panic Disorder Additional Psychological History / Comment(s): . Smoking Status: Current every day smoker Past Alcohol Use History: None Reported Additional Past Alcohol Use History / Comment(s): STARTED SMOKING AT AGE 17 SMOKES 1/4- 1/2 PPD Past Drug Use History: Marijuana Additional Drug Use History / Comment(s): SMOKES MARIJUANA DAILY - Past Family History Father Family Medical History: Liver Disease Additional Family Medical History / Comment(s): Father of liver disease. Mother Family Medical History: No Reported History Additional Family Medical History / Comment(s): . Medications and Allergies Home Medications Medication Instructions Recorded Confirmed Type Ertugliflozin Pidolate [Steglatro] 15 mg PO DAILY 12/09/18 08/19/20 History Glimepiride [Amaryl] 4 mg PO BID 12/09/18 08/19/20 History metFORMIN HCL [Glucophage] 1,000 mg PO BID 12/09/18 08/19/20 History DULoxetine HCL [Cymbalta] 60 mg PO DAILY 10/03/19 08/19/20 History Cariprazine HCl [Vraylar] 1.5 mg PO DAILY 08/19/20 08/19/20 History Dicyclomine [Bentyl] 20 mg PO BID PRN 08/19/20 08/19/20 History Gabapentin 300 mg PO TID 08/19/20 08/19/20 History HYDROcodone/APAP 10-325MG [[place] 1 tab PO QID PRN 08/19/20 08/19/20 History 10-325] Losartan [Cozaar] 12.5 mg PO DAILY 08/19/20 08/19/20 History Meloxicam [Mobic] 15 mg PO DAILY 08/19/20 08/19/20 History Omeprazole 40 mg PO DAILY 08/19/20 08/19/20 History hydrOXYzine pamoate [Vistaril] 25 mg PO BID PRN 08/19/20 08/19/20 History tiZANidine [Zanaflex] 2 mg PO BID PRN 08/19/20 08/19/20 History Allergies Allergy/AdvReac Type Severity Reaction Status Date / Time No Known Allergies Allergy Verified 08/19/20 09:42 Physical Exam Vitals: Vital Signs Temp Pulse Resp BP Pulse Ox 08/19/20 14:00 89 10 L 128/75 98 08/19/20 12:00 98.3 F 82 12 119/63 97 08/19/20 10:00 83 11 L 128/76 96 08/19/20 08:00 98.1 F 92 16 121/64 96 08/19/20 07:00 95 18 121/64 97 08/19/20 06:50 94 16 121/64 95 08/19/20 06:40 96 24 121/64 97 08/19/20 06:30 97 22 121/64 98 08/19/20 06:20 98.0 F 96 20 121/64 96 08/19/20 06:13 96 08/19/20 05:48 97.7 F 102 H 18 122/63 98 08/19/20 04:43 98.4 F 108 H 18 156/93 100 08/19/20 03:11 100.1 F H 114 H 20 174/92 100 Intake and Output 08/18/20 08/19/20 08/19/20 22:59 06:59 14:59 Intake Total 650 Balance 650 Intake: IV 650 Sodium Chloride 0.9% 1, 650 000 ml @ 130 mls/hr IV . Q7H42M STA Rx#:[id number] Other: # Voids 1 # Bowel Movements 0 Weight 79.379 kg PHYSICAL EXAMINATION: GENERAL: The patient is alert and oriented X3, no acute distress HEENT: Pupils are round and equally reacting to light. EOMI. No scleral icterus. No conjunctival pallor. Normocephalic, atraumatic. CARDIOVASCULAR: S1 and S2 present. PULMONARY: Chest is clear to auscultation, no wheezing or crackles. ABDOMEN: Soft, nontender. No organomegaly. Hyperactive bowel sounds MUSCULOSKELETAL: No joint swelling or deformity NEUROLOGICAL: No focal neurological deficits on gross exam. EXTREMITIES: No cyanosis, clubbing, or pedal edema. Results CBC & Chem 7: 08/19/20 03:39 08/19/20 03:39 Labs: Abnormal Lab Results - Last 24 Hours (Table) 08/19/20 08/19/20 08/19/20 Range/Units 03:39 03:39 03:39 WBC 14.0 H (3.8-10.6) k/uL Neutrophils # 12.4 H (1.3-7.7) k/uL VBG HCO3 (24-28) mmol/L Chloride 110 H (98-107) mmol/L Carbon Dioxide 18 L (22-30) mmol/L Glucose 312 H (74-99) mg/dL POC Glucose (mg/dL) (75-99) mg/dL Plasma Lactic Acid Abilio 6.3 H* (0.7-2.0) mmol/L Phosphorus 4.6 H (2.5-4.5) mg/dL Magnesium 1.5 L (1.6-2.3) mg/dL Lactate Dehydrogenase 677 H (313-618) U/L Urine Protein (Negative) Urine Glucose (UA) (Negative) Urine Ketones (Negative) Urine Blood (Negative) 08/19/20 08/19/20 08/19/20 Range/Units 04:47 05:24 06:28 WBC (3.8-10.6) k/uL Neutrophils # (1.3-7.7) k/uL VBG HCO3 23 L (24-28) mmol/L Chloride (98-107) mmol/L Carbon Dioxide (22-30) mmol/L Glucose (74-99) mg/dL POC Glucose (mg/dL) 270 H (75-99) mg/dL Plasma Lactic Acid Abilio (0.7-2.0) mmol/L Phosphorus (2.5-4.5) mg/dL Magnesium (1.6-2.3) mg/dL Lactate Dehydrogenase (313-618) U/L Urine Protein 1+ H (Negative) Urine Glucose (UA) 4+ H (Negative) Urine Ketones 2+ H (Negative) Urine Blood Trace H (Negative) 08/19/20 08/19/20 08/19/20 Range/Units 06:28 06:58 13:15 WBC (3.8-10.6) k/uL Neutrophils # (1.3-7.7) k/uL VBG HCO3 (24-28) mmol/L Chloride (98-107) mmol/L Carbon Dioxide (22-30) mmol/L Glucose (74-99) mg/dL POC Glucose (mg/dL) 237 H 125 H (75-99) mg/dL Plasma Lactic Acid Abilio 3.6 H* (0.7-2.0) mmol/L Phosphorus (2.5-4.5) mg/dL Magnesium (1.6-2.3) mg/dL Lactate Dehydrogenase (313-618) U/L Urine Protein (Negative) Urine Glucose (UA) (Negative) Urine Ketones (Negative) Urine Blood (Negative) Thrombosis Risk Factor Assmnt - Choose All That Apply Any of the Below Risk Factors Present?: Yes Each Factor Represents 1 point: Age 41-60 years Thrombosis Risk Factor Assessment Total Risk Factor Score: 1 Thrombosis Risk Factor Assessment Level: Low Risk Assessment and Plan Assessment: ASSESSMENT Sepsis - could be due to acute viral syndrome Nausea, vomiting and diarrhea Lactic acidosis due to dehydration Mild DKA Hypertension Hyperlipidemia GERD Osteoarthritis Chronic low back pain Diabetic neuropathy Anxiety depression PLAN: Patient's symptoms could be due to acute viral syndrome. Rapid [place] virus PCR was negative, and other PCR has been ordered and is currently pending. Continue with IV fluids. As the patient has hyperglycemia, continue with sliding scale of insulin. Symptomatic management for nausea and vomiting with Zofran on when necessary basis. Patient will be started on her home medications. Further recommendations to follow depending on the progress of the patient.
[2020-08-19 20:47] LABS: Glucose,Whole Blood 112 mg/dL (75-99)
[2020-08-20] MEDS: SODIUM CHLORIDE 0.9% 1,000 ML IV SCH ×3 (02:16→16:06)
[2020-08-20 06:41] LABS: Basophils # (A) 0.1 k/uL (0-0.2); Basophils % (A) 1 %; Eosinophils # (A) 0.1 k/uL (0-0.7); Eosinophils % (A) 1 %; HCT 35.1 % (34.0-46.0); HGB 11.5 gm/dL (11.4-16.0); Lymphocytes # (A) 3.1 k/uL (1.0-4.8); Lymphocytes % (A) 33 %; MCH 28.3 pg (25.0-35.0); MCHC 32.9 g/dL (31.0-37.0); Mean Platelet Volume 8.7; Monocytes # (A) 0.4 k/uL (0-1.0); Monocytes % (A) 5 %; Neutrophils # (A) 5.6 k/uL (1.3-7.7); Neutrophils % (A) 59 %; Platelet Count 164 k/uL (150-450); RBC 4.08 m/uL (3.80-5.40); RDW 14.8 % (11.5-15.5); WBC 9.5 k/uL (3.8-10.6)
[2020-08-20 06:49] LABS: ALT 25 U/L (4-34); AST 29 U/L (14-36); African American GFR (CKD) >90 (>60 ml/min/1.73 sqM); Albumin 2.9 g/dL (3.5-5.0); Alkaline Phosphatase 73 U/L (38-126); Anion Gap 3 mmol/L; Blood Urea Nitrogen 12 mg/dL (7-17); Calcium 8.4 mg/dL (8.4-10.2); Carbon Dioxide 26 mmol/L (22-30); Chloride 111 mmol/L (98-107); Glucose 91 mg/dL (74-99); Magnesium 1.7 mg/dL (1.6-2.3); Non-African American GFR(CKD) 88 (>60 ml/min/1.73 sqM); Phosphorus 2.3 mg/dL (2.5-4.5); Potassium 3.3 mmol/L (3.5-5.1); Sodium 140 mmol/L (137-145); Total Bilirubin 0.3 mg/dL (0.2-1.3); Total Protein 5.5 g/dL (6.3-8.2)
[2020-08-20] MEDS: INSULIN ASPART (NovoLOG) 100 UNIT/ML VIAL SQ SCH ×3 (08:01→17:24)
[2020-08-20] MEDS: PANTOPRAZOLE 40 MG/10 ML VIAL IV SCH ×2 (08:09→08:12)
[2020-08-20] MEDS: DULoxetine HCL 60 MG CAPSULE.DR PO SCH (08:09)
[2020-08-20] MEDS: LOSARTAN 25 MG TAB PO SCH (08:09)
[2020-08-20] MEDS ORDERED: PANTOPRAZOLE 40 MG TABLET PO SCH (08:30)
[2020-08-20] MEDS ORDERED: NON FORMULARY DRUG (Omeprazole [Omeprazole] 40 MG Capsule.Dr) PO SCH (09:00)
[2020-08-20 11:37] LABS: Glucose,Whole Blood 149 mg/dL (75-99)
[2020-08-20] MEDS: ONDANSETRON 4 MG/2 ML VIAL IVP PRN (14:13)
[2020-08-20 14:20] LABS: Glucose,Whole Blood 160 mg/dL (75-99)
[2020-08-20] MEDS ORDERED: METOCLOPRAMIDE 5 MG/ML 2 ML VIAL IVP PRN (14:31)
[2020-08-20] MEDS ORDERED: KETOROLAC 15 MG/ML 1 ML VIAL IVP PRN (14:32)
[2020-08-20] MEDS ORDERED: Magnesium Replacement Protocol 1 EACH MISC MISCELLANE PRN (14:33)
[2020-08-20] MEDS ORDERED: Potassium Replacement Protocol 1 EACH MISC MISCELLANE PRN (14:33)
--- NOTE | 2020-08-20 14:43 | P.PN ---
Subjective Progress Note Date: 08/20/20 Principal diagnosis: Possible sepsis, COVID19 was ruled out This is a 54-year-old adult female patient with past medical history of hypertension, hyperlipidemia, diabetes mellitus type 2, GERD/reflux, osteoarthritis, chronic back and neck pain, diabetic neuropathy, anxiety, dep ression, current some day smoker who presented emergency department on 08/19/2020 with complaints of nausea vomiting, diarrhea, body aches, body pain weakness and fever. She denied a Coronavirus exposure. Denies any significant pulmonary symptoms, no shortness of breath or cough, she has been taking in fluids, however could not eating much, her rapid coronavirus PCR in the emergency department was negative, influenza screen was negative. Room air pulse ox was 96%, hemodynamically she is stable, she was febrile presentation with a temp of 100.1F. Chest x-ray showed no active pulmonary disease, KUB of the abdomen showed nonspecific bowel gas pattern. Lab data was reviewed, showing white blood cell count of 14, hemoglobin of 14.4, lymphocyte was within normal limits at 1.0, neutrophils elevated at 12.4 sodium 143, potassium 3.9, chloride is 110, CO2 is 18, 9 15, BUN 16 creatinine 0.76, glucose was elevated at 312, plasma lactic acid of 6.3, patient was fluid resuscitated she received 3 L in IV fluids and lactic acid is improved, down to 1.7, maintenance IV fluids to infusing at 130 ML per hour, she is in sinus mechanism, though controlled rate, she remains on room air, LDH was 677, CRP was less than 5, PTT was 38, LFTs were within normal limits, magnesium was 1.5, phosphorus was 4.6, urinalysis showed 1+ protein, 4+ glucose, 2+ ketones, trace blood, but no evidence of a urinary tract infection, serum acetone was positive. Patient was admitted to the intensive care unit as a overflow for selective care, is awake and alert in 3, in no acute distress On 08/20/2020 patient seen in follow-up on the general medical floor, she is resting comfortably in bed, her vital signs are stable, no worsening dyspnea, she is on room air, breathing comfortably, lung sounds are clear, no cough, no chest pain, abdominal pain, nausea or vomiting, lung sounds are clear, C. diff was negative, her second PCR was negative as well. Influenza screen was negative, pulse ox 99%, no fever or chills, and remains on empiric antibiotics in the form of Rocephin, clinically patient has been stable, patient has been fluid resuscitated, today's labs have been reviewed, CBC is completely within normal limits, sodium is 140, potassium is 3.3, chloride is 111, anion gap has closed and is down to 3, B1 is 12 creatinine 0.76 Objective - Vital Signs Vital signs: Vital Signs Temp 98.4 F 08/20/20 07:18 Pulse 71 08/20/20 07:18 Resp 16 08/20/20 07:18 BP 119/74 08/20/20 07:18 Pulse Ox 99 08/20/20 07:18 Intake & Output 08/19/20 08/20/20 08/20/20 18:59 06:59 18:59 Intake Total 650 Balance 650 Intake: IV 650 Sodium Chloride 0.9% 1, 650 000 ml @ 130 mls/hr IV . Q7H42M STA Rx#:[id number] Other: Voiding Method Toilet # Voids 1 1 # Bowel Movements 0 - Exam GENERAL EXAM: Alert, very pleasant, 54-year-old female, resting comfortably in bed, on room air, with pulse ox of 96% comfortable in no apparent distress. HEAD: Normocephalic/atraumatic. EYES: Normal reaction of pupils, equal size. Conjunctiva pink, sclera white. NOSE: Clear with pink turbinates. THROAT: No erythema or exudates. NECK: No masses, no JVD, no thyroid enlargement, no adenopathy. CHEST: No chest wall deformity. Symmetrical expansion. LUNGS: Equal air entry with no crackles, wheeze, rhonchi or dullness. CVS: Regular rate and rhythm, normal S1 and S2, no gallops, no murmurs, no rubs ABDOMEN: Soft, nontender. No hepatosplenomegaly, normal bowel sounds, no guarding or rigidity. EXTREMITIES: No clubbing, no edema, no cyanosis, 2+ pulses and upper and lower extremities. MUSCULOSKELETAL: Muscle strength and tone normal. SPINE: No scoliosis or deformity SKIN: No rashes CENTRAL NERVOUS SYSTEM: Alert and oriented -3. No focal deficits, tone is normal in all 4 extremities. PSYCHIATRIC: Alert and oriented -3. Appropriate affect. Intact judgment and insight. - Labs CBC & Chem 7: 08/20/20 05:55 08/20/20 05:55 Labs: Abnormal Lab Results - Last 24 Hours (Table) 08/19/20 08/19/20 08/19/20 Range/Units 17:23 17:36 17:36 D-Dimer 1.36 H (<0.60) mg/L FEU Potassium (3.5-5.1) mmol/L Chloride (98-107) mmol/L POC Glucose (mg/dL) 167 H (75-99) mg/dL Phosphorus (2.5-4.5) mg/dL Total Protein (6.3-8.2) g/dL Albumin (3.5-5.0) g/dL Procalcitonin 0.14 H (0.02-0.09) ng/mL 08/19/20 08/20/20 08/20/20 Range/Units 20:45 05:55 11:35 D-Dimer (<0.60) mg/L FEU Potassium 3.3 L (3.5-5.1) mmol/L Chloride 111 H (98-107) mmol/L POC Glucose (mg/dL) 112 H 149 H (75-99) mg/dL Phosphorus 2.3 L (2.5-4.5) mg/dL Total Protein 5.5 L (6.3-8.2) g/dL Albumin 2.9 L (3.5-5.0) g/dL Procalcitonin (0.02-0.09) ng/mL 08/20/20 Range/Units 14:18 D-Dimer (<0.60) mg/L FEU Potassium (3.5-5.1) mmol/L Chloride (98-107) mmol/L POC Glucose (mg/dL) 160 H (75-99) mg/dL Phosphorus (2.5-4.5) mg/dL Total Protein (6.3-8.2) g/dL Albumin (3.5-5.0) g/dL Procalcitonin (0.02-0.09) ng/mL Assessment and Plan Plan: Assessment: #1. Possible sepsis with an unknown source, chest x-ray did not show any evidence of pulmonary infiltrates, COVID 19 PCR was negative 2, urinalysis without clear evidence of infection, patient had evidence of mild DKA, was fluid resuscitated, clinically improved, #2. Rule out acute COVID 19 infection, patient presented primarily with s ymptoms of nausea, vomiting diarrhea, abdominal discomfort, body aches, fever, weakness, no pulmonary symptoms, no evidence of hypoxemia or pulmonary infiltrates on the chest x-ray. Rapid COVID 19 PCR was negative 2 #3. Lactic acidosis related to dehydration, patient was fluid resuscitated, is down to 1.7 #4. Mild DKA, related to acute COVID 19 infection #5. Diabetes mellitus type 2 #6. Hypertension #7. Hyperlipidemia #8. GERD/reflux #9. Osteoarthritis #10. Chronic back and neck pain, neuropathy #11. Anxiety, depression Plan: Patient has been stable, no clear evidence of source of her possible sepsis, no fever or chills overnight, pro-calcitonin level was low 0.14, chest x-ray without clear evidence of pulmonary infiltrates, no pulmonary symptoms, nausea vomiting diarrhea have improved, she is tolerating oral intake, repeat COVID 19 test was negative. No fever or chills. Increase activity as tolerated, from pulmonary perspective she can to consider for discharge home today I performed a history & physical examination of the patient and discussed their management with my nurse practitioner, Winifred Melton. I reviewed the nurse practitioner's note and agree with the documented findings and plan of care. Lung sounds are positive for diminished breath sounds. The findings and the impression was discussed with the patient. I attest to the documentation by the nurse practitioner. Time with Patient: Less than 30
--- NOTE | 2020-08-20 15:40 | P.PN ---
Subjective From records: Ms. Luis is a 54-year-old female with a past medical history of hypertension, hyperlipidemia, diabetes mellitus, osteoporosis, GERD, chronic low back pain, diabetic neuropathy, anxiety and depression coming to the hospital stating that she has been having nausea vomiting and diarrhea ongoing for the past 2-3 days. Patient has also complains of generalized body aches, feeling extremely tired and weak. Patient states that she did not have fever at home but was having some chills. Patient denied having any exposure to gaines virus but mentions that [place] recently 7 deaths in her family related to COVID-19 in the month of July. Patient denies having any chest pain or palpitations. She denies having any cough or difficulty breathing. Patient states that she has very poor appetite. Patient denies having any dysuria or hematuria. She denies having any headaches, changes in her vision or speech abnormalities. Patient denies having any recent travel. She denies having any swelling of her lower extremities. In the ER, patient's vitals at the time of admission temperature 100.1, tachycardic at 114, blood pressure 174.92 saturating at 100% on room air. She had a chest x-ray showing no acute cardiopulmonary process and KUB done showing nonspecific bowel gas pattern. On reviewing her labs she had a white count of 14, hemoglobin 14.4, platelets 221. Sodium 143, duration 3.9, chloride 110, bicarbonate 18, BUN 16, creatinine 0.76 blood sugars have been around 300. UA is positive for 4+ glucose, trace blood, negative leukocyte esterase and negative for nitrites. Coronavirus PCR is negative, influenza A and B is negative. She is admitted for evaluation and management. Subjective: This is the first time I care of the patient 08/20/2020 This is a pleasant 54 years old female with multiple medical problems was admitted with signs and symptoms of gastroenteritis with nausea vomiting and diarrhea, also she had mild DKA and dehydrated with elevated lactic acid on admission, her lactic acid is back to normal. Patient states for the last 24 hours prior to admission to the hospital she had significant vomiting and diarrhea all day long for 24 hours, currently she feels better with her forms and is stopped and she was able to tolerate diet. However she still have loose bowel movement 1 this morning which was loose. Vitals are stable. Labs look stable except for mild hypokalemia at 3.3 and low phosphorous 2.3. C. diff is negative. Glucose is controlled Objective - Vital Signs Vital signs: Vital Signs Temp 98.4 F 08/20/20 07:18 Pulse 71 08/20/20 07:18 Resp 16 08/20/20 07:18 BP 119/74 08/20/20 07:18 Pulse Ox 99 08/20/20 07:18 Intake & Output 08/19/20 08/20/20 08/20/20 18:59 06:59 18:59 Intake Total 650 Balance 650 Intake: IV 650 Sodium Chloride 0.9% 1, 650 000 ml @ 130 mls/hr IV . Q7H42M STA Rx#:[id number] Other: Voiding Method Toilet # Voids 1 1 # Bowel Movements 0 - Exam GENERAL: The patient is alert and oriented x3, not in any acute distress. Well developed, well nourished. HEENT: Pupils are round and equally reacting to light. EOMI. No scleral icterus. No conjunctival pallor. Normocephalic, atraumatic. No pharyngeal erythema. No thyromegaly. CARDIOVASCULAR: S1 and S2 present. No murmurs, rubs, or gallops. PULMONARY: Chest is clear to auscultation, no wheezing or crackles. ABDOMEN: Soft, nontender, nondistended, normoactive bowel sounds. No palpable organomegaly. MUSCULOSKELETAL: No joint swelling or deformity. EXTREMITIES: No cyanosis, clubbing, or pedal edema. NEUROLOGICAL: Gross neurological examination did not reveal any focal deficits. SKIN: No rashes. no petechiae. - Labs CBC & Chem 7: 08/20/20 05:55 08/20/20 05:55 Labs: Abnormal Lab Results - Last 24 Hours (Table) 08/19/20 08/19/20 08/19/20 Range/Units 17:23 17:36 17:36 D-Dimer 1.36 H (<0.60) mg/L FEU Potassium (3.5-5.1) mmol/L Chloride (98-107) mmol/L POC Glucose (mg/dL) 167 H (75-99) mg/dL Phosphorus (2.5-4.5) mg/dL Total Protein (6.3-8.2) g/dL Albumin (3.5-5.0) g/dL Procalcitonin 0.14 H (0.02-0.09) ng/mL 08/19/20 08/20/20 08/20/20 Range/Units 20:45 05:55 11:35 D-Dimer (<0.60) mg/L FEU Potassium 3.3 L (3.5-5.1) mmol/L Chloride 111 H (98-107) mmol/L POC Glucose (mg/dL) 112 H 149 H (75-99) mg/dL Phosphorus 2.3 L (2.5-4.5) mg/dL Total Protein 5.5 L (6.3-8.2) g/dL Albumin 2.9 L (3.5-5.0) g/dL Procalcitonin (0.02-0.09) ng/mL 08/20/20 Range/Units 14:18 D-Dimer (<0.60) mg/L FEU Potassium (3.5-5.1) mmol/L Chloride (98-107) mmol/L POC Glucose (mg/dL) 160 H (75-99) mg/dL Phosphorus (2.5-4.5) mg/dL Total Protein (6.3-8.2) g/dL Albumin (3.5-5.0) g/dL Procalcitonin (0.02-0.09) ng/mL Assessment and Plan Assessment: Gastroenteritis, mostly viral. Improvement Lactic acidosis due to dehydration, came back to normal Mild DKA, improved Hypertension Hyperlipidemia GERD Osteoarthritis Chronic low back pain Diabetic neuropathy Anxiety depression Plan: Is a pleasant 54 years old female who presents with gastroenteritis, mostly viral. Continue with IV hydration. Pulmonary team. The patient for discharge Labs and medication were reviewed.. Continue same treatment. Continue with symptomatic treatment. Resume home medication. Monitor lytes and vitals. DVT and GI prophylaxis. Further recommendationsas per clinical course of the patient DVT prophylaxis: Subcutaneous heparin GI Prophylaxis: Ppi Possible discharge in 24-48 hours if she keeps improvement
[2020-08-20 16:31] LABS: Hemoglobin A1C 8.7 % (4.0-6.0)
[2020-08-20 16:42] LABS: Glucose,Whole Blood 173 mg/dL (75-99)
[2020-08-20] MEDS: HEPARIN SODIUM,PORCINE 5,000 UNIT/ML 1 ML VIAL SQ SCH (20:07)
[2020-08-20] MEDS ORDERED: PANTOPRAZOLE 40 MG/10 ML VIAL IVP SCH (21:00)
[2020-08-21] MEDS: SODIUM CHLORIDE 0.9% 1,000 ML IV SCH (05:26)
[2020-08-21 07:10] LABS: Glucose,Whole Blood 113 mg/dL (75-99)
[2020-08-21] MEDS: INSULIN ASPART (NovoLOG) 100 UNIT/ML VIAL SQ SCH ×3 (07:24→17:06)
[2020-08-21] MEDS: DULoxetine HCL 60 MG CAPSULE.DR PO SCH (08:03)
[2020-08-21] MEDS: PANTOPRAZOLE 40 MG/10 ML VIAL IVP SCH (08:03)
[2020-08-21] MEDS: HEPARIN SODIUM,PORCINE 5,000 UNIT/ML 1 ML VIAL SQ SCH ×2 (08:03→20:29)
[2020-08-21] MEDS: LOSARTAN 25 MG TAB PO SCH (08:03)
[2020-08-21 10:14] LABS: Magnesium 1.6 mg/dL (1.5-2.4); Potassium 3.4 mmol/L (3.5-5.5)
[2020-08-21 11:49] LABS: Glucose,Whole Blood 166 mg/dL (75-99)
[2020-08-21] MEDS ORDERED: POTASSIUM CHLORIDE ER 20 MEQ TAB.ER PO STA (12:54)
--- NOTE | 2020-08-21 15:53 | P.PN ---
Subjective Progress Note Date: 08/21/20 Principal diagnosis: Rule out sepsis. This is a 54-year-old adult female patient with past medical history of hypertension, hyperlipidemia, diabetes mellitus type 2, GERD/reflux, osteoarthritis, chronic back and neck pain, diabetic neuropathy, anxiety, depression, current some day smoker who presented emergency department on 08/19/2020 with complaints of nausea vomiting, diarrhea, body aches, body pain weakness and fever. She denied a Coronavirus exposure. Denies any significant pulmonary symptoms, no shortness of breath or cough, she has been taking in fluids, however could not eating much, her rapid coronavirus PCR in the emergency department was negative, influenza screen was negative. Room air pulse ox was 96%, hemodynamically she is stable, she was febrile presentation with a temp of 100.1F. Chest x-ray showed no active pulmonary disease, KUB of the abdomen showed nonspecific bowel gas pattern. Lab data was reviewed, showing white blood cell count of 14, hemoglobin of 14.4, lymphocyte was within normal limits at 1.0, neutrophils elevated at 12.4 sodium 143, potassium 3.9, chloride is 110, CO2 is 18, 9 15, BUN 16 creatinine 0.76, glucose was elevated at 312, plasma lactic acid of 6.3, patient was fluid resuscitated she received 3 L in IV fluids and lactic acid is improved, down to 1.7, maintenance IV fluids to infusing at 130 ML per hour, she is in sinus mechanism, though controlled rate, she remains on room air, LDH was 677, CRP was less than 5, PTT was 38, LFTs were within normal limits, magnesium was 1.5, phosphorus was 4.6, urinalysis showed 1+ protein, 4+ glucose, 2+ ketones, trace blood, but no evidence of a urinary tract infection, serum acetone was positive. Patient was admitted to the intensive care unit as a overflow for selective care, is awake and alert in 3, in no acute distress On 08/20/2020 patient seen in follow-up on the general medical floor, she is resting comfortably in bed, her vital signs are stable, no worsening dyspnea, she is on room air, breathing comfortably, lung sounds are clear, no cough, no chest pain, abdominal pain, nausea or vomiting, lung sounds are clear, C. diff was negative, her second PCR was negative as well. Influenza screen was negative, pulse ox 99%, no fever or chills, and remains on empiric antibiotics in the form of Rocephin, clinically patient has been stable, patient has been fluid resuscitated, today's labs have been reviewed, CBC is completely within normal limits, sodium is 140, potassium is 3.3, chloride is 111, anion gap has closed and is down to 3, B1 is 12 creatinine 0.76 Progress note dated 08/21/2020. 54-year-old female with a history of possible underlying sepsis, source unknown. The patient was having some gastrointestinal issues but nothing in the way of genitourinary complaints or pulmonary issues. Her COVID 19 test was negative 2. The patient did have evidence of mild diabetic ketoacidosis. She also had some mild lactic acidosis, and that has resolved itself. She does suffer from type 2 diabetes mellitus, hypertension, hyperlipidemia, gastroesophageal reflux disease, osteoarthritis, anxiety/depression, and chronic back and neck pain. Currently, the patient's resting comfortably. Her temperature is now normal. Her blood pressure, heart rate, respiratory rate, and room air saturation are all normal. Objective - Vital Signs Vital signs: Vital Signs Temp 98.8 F 08/21/20 14:23 Pulse 76 08/21/20 14:23 Resp 16 08/21/20 14:23 BP 150/81 08/21/20 14:23 Pulse Ox 99 08/21/20 14:23 Intake & Output 08/20/20 08/21/20 08/21/20 18:59 06:59 18:59 Other: Voiding Method Toilet # Voids 3 - Exam No acute distress, oriented 3. Not requiring any supplemental oxygen. HEENT examination is grossly unremarkable. Mucous membranes are moist. No oral lesions. Neck supple. Full range of motion. No adenopathy thyromegaly or neck vein distention. Cardiovascular examination reveals regular rhythm rate. S1-S2 normal. No S3 or S4. No discernible murmur noted. Lungs reveal clear breath sounds. Her sounds are equal bilaterally. No adventitious lung sounds including wheezes rhonchi or crackles. Abdomen soft bowel sounds are heard. No masses or tenderness. Extremities are intact. No cyanosis clubbing or edema. Skin is without rash or lesion. Neurologic examination is brief but nonfocal. - Labs CBC & Chem 7: 08/20/20 05:55 08/21/20 05:39 Labs: Abnormal Lab Results - Last 24 Hours (Table) 08/20/20 08/20/20 08/21/20 Range/Units 05:55 16:41 05:39 Potassium 3.4 L (3.5-5.5) mmol/L POC Glucose (mg/dL) 173 H (75-99) mg/dL Hemoglobin A1c 8.7 H (4.0-6.0) % 08/21/20 08/21/20 Range/Units 07:08 11:48 Potassium (3.5-5.5) mmol/L POC Glucose (mg/dL) 113 H 166 H (75-99) mg/dL Hemoglobin A1c (4.0-6.0) % Assessment and Plan Assessment: #1. Possible sepsis with an unknown source, chest x-ray did not show any evidence of pulmonary infiltrates, COVID 19 PCR was negative 2, urinalysis wit hout clear evidence of infection, patient had evidence of mild DKA, was fluid resuscitated, clinically improved, #2. Rule out acute COVID 19 infection, patient presented primarily with symptoms of nausea, vomiting diarrhea, abdominal discomfort, body aches, fever, weakness, no pulmonary symptoms, no evidence of hypoxemia or pulmonary infiltrates on the chest x-ray. Rapid COVID 19 PCR was negative 2 #3. Lactic acidosis related to dehydration, patient was fluid resuscitated, is down to 1.7 #4. Mild DKA, related to acute COVID 19 infection #5. Diabetes mellitus type 2 #6. Hypertension #7. Hyperlipidemia #8. GERD/reflux #9. Osteoarthritis #10. Chronic back and neck pain, neuropathy #11. Anxiety, depression Plan: Plan dated 08/21/2020. Currently, the patient appears very stable. She may have some sort of vague viral syndrome. Thus far, nothing is very obvious. Her vital signs are now stable. Her pro-calcitonin level was low at 0.14. Chest x-ray is normal. She denies any pulmonary complaints. She's having some very mild gastrointestinal intolerance. She's had 2 negative COVID 19 test. From the pulmonary standpoint, the patient could be discharged home. No additional recommendations are made at this time. Time with Patient: Less than 30
[2020-08-21 17:02] LABS: Glucose,Whole Blood 152 mg/dL (75-99)
--- NOTE | 2020-08-21 19:14 | P.PN ---
Subjective From records: Ms. Luis is a 54-year-old female with a past medical history of hypertension, hyperlipidemia, diabetes mellitus, osteoporosis, GERD, chronic low back pain, diabetic neuropathy, anxiety and depression coming to the hospital stating that she has been having nausea vomiting and diarrhea ongoing for the past 2-3 days. Patient has also complains of generalized body aches, feeling extremely tired and weak. Patient states that she did not have fever at home but was having some chills. Patient denied having any exposure to gaines virus but mentions that [place] recently 7 deaths in her family related to COVID-19 in the month of July. Patient denies having any chest pain or palpitations. She denies having any cough or difficulty breathing. Patient states that she has very poor appetite. Patient denies having any dysuria or hematuria. She denies having any headaches, changes in her vision or speech abnormalities. Patient denies having any recent travel. She denies having any swelling of her lower extremities. In the ER, patient's vitals at the time of admission temperature 100.1, tachycardic at 114, blood pressure 174.92 saturating at 100% on room air. She had a chest x-ray showing no acute cardiopulmonary process and KUB done showing nonspecific bowel gas pattern. On reviewing her labs she had a white count of 14, hemoglobin 14.4, platelets 221. Sodium 143, duration 3.9, chloride 110, bicarbonate 18, BUN 16, creatinine 0.76 blood sugars have been around 300. UA is positive for 4+ glucose, trace blood, negative leukocyte esterase and negative for nitrites. Coronavirus PCR is negative, influenza A and B is negative. She is admitted for evaluation and management. 08/20/2020 This is a pleasant 54 years old female with multiple medical problems was admitted with signs and symptoms of gastroenteritis with nausea vomiting and diarrhea, also she had mild DKA and dehydrated with elevated lactic acid on admission, her lactic acid is back to normal. Patient states for the last 24 hours prior to admission to the hospital she had significant vomiting and diarrhea all day long for 24 hours, currently she feels better with her forms and is stopped and she was able to tolerate diet. However she still have loose bowel movement 1 this morning which was loose. Vitals are stable. Labs look stable except for mild hypokalemia at 3.3 and low phosphorous 2.3. C. diff is negative. Glucose is controlled 08/23/2020 Patient admitted with signs symptoms of possible gastroenteritis however since yesterday her nausea and vomiting was a stopped, yesterday he had 1 loose bowel movement and the morning and since then she had normal bowel movements, no abdominal pain but today she has some epigastric discomfort especially with eating. Patient tolerated liquid diet in the morning level in the afternoon she could not tolerate soft diet sodium went to keep the patient and ask GI team evaluated the patient especially she has history of incomplete workup, where colonoscopy last year was cancelled because of Covid pandemic as per patient Pulmonary input is appreciated, no further pulmonary workup is needed. Patient currently is empirically on ceftriaxone since admission and IV Protonix and Zofran. Objective - Vital Signs Vital signs: Vital Signs Temp 98.8 F 08/21/20 14:23 Pulse 76 08/21/20 14:23 Resp 16 08/21/20 14:23 BP 150/81 08/21/20 14:23 Pulse Ox 99 08/21/20 14:23 Intake & Output 08/21/20 08/21/20 08/22/20 06:59 18:59 06:59 Other: Voiding Method Toilet # Voids 3 - Exam GENERAL: The patient is alert and oriented x3, not in any acute distress. Well developed, well nourished. HEENT: Pupils are round and equally reacting to light. EOMI. No scleral icterus. No conjunctival pallor. Normocephalic, atraumatic. No pharyngeal erythema. No thyromegaly. CARDIOVASCULAR: S1 and S2 present. No murmurs, rubs, or gallops. PULMONARY: Chest is clear to auscultation, no wheezing or crackles. ABDOMEN: Soft, nontender, nondistended, normoactive bowel sounds. No palpable organomegaly. MUSCULOSKELETAL: No joint swelling or deformity. EXTREMITIES: No cyanosis, clubbing, or pedal edema. NEUROLOGICAL: Gross neurological examination did not reveal any focal deficits. SKIN: No rashes. no petechiae. - Labs CBC & Chem 7: 08/20/20 05:55 08/21/20 05:39 Labs: Abnormal Lab Results - Last 24 Hours (Table) 08/21/20 08/21/20 08/21/20 Range/Units 05:39 07:08 11:48 Potassium 3.4 L (3.5-5.5) mmol/L POC Glucose (mg/dL) 113 H 166 H (75-99) mg/dL 08/21/20 Range/Units 17:01 Potassium (3.5-5.5) mmol/L POC Glucose (mg/dL) 152 H (75-99) mg/dL Assessment and Plan Assessment: Gastroenteritis, mostly viral. Improving Persistent nausea and epigastric discomfort with diet intolerance Lactic acidosis due to dehydration, came back to normal Mild DKA, improved Hypertension Hyperlipidemia GERD Osteoarthritis Chronic low back pain Diabetic neuropathy Anxiety depression Plan: Is a pleasant 54 years old female who presents with gastroenteritis, mostly viral. Consult GI team for persistent GI symptoms. And continue with Protonix and ceftriaxone and Zofran Labs and medication were reviewed.. Continue same treatment. Continue with symptomatic treatment. Resume home medication. Monitor lytes and vitals. DVT and GI prophylaxis. Further recommendationsas per clinical course of the patient DVT prophylaxis: Subcutaneous heparin GI Prophylaxis: Ppi
[2020-08-21 20:18] LABS: Glucose,Whole Blood 155 mg/dL (75-99)
[2020-08-22 06:53] LABS: Glucose,Whole Blood 125 mg/dL (75-99)
[2020-08-22] MEDS: INSULIN ASPART (NovoLOG) 100 UNIT/ML VIAL SQ SCH ×4 (08:01→23:33)
[2020-08-22] MEDS: PANTOPRAZOLE 40 MG/10 ML VIAL IVP SCH (08:02)
[2020-08-22] MEDS: LOSARTAN 25 MG TAB PO SCH (08:02)
[2020-08-22] MEDS: HEPARIN SODIUM,PORCINE 5,000 UNIT/ML 1 ML VIAL SQ SCH ×2 (08:02→23:09)
[2020-08-22] MEDS: ACETAMINOPHEN TAB 325 MG TAB PO PRN (08:02)
[2020-08-22] MEDS: DULoxetine HCL 60 MG CAPSULE.DR PO SCH (08:02)
[2020-08-22 10:22] LABS: Magnesium 1.5 mg/dL (1.5-2.4); Potassium 3.5 mmol/L (3.5-5.5)
[2020-08-22] MEDS ORDERED: MAGNESIUM SULFATE-D5W PMX 1 GM in DEXTROSE/WATER 1 100ML.BAG IVPB ONE (11:24)
[2020-08-22] MEDS ORDERED: POTASSIUM CHLORIDE ER 20 MEQ TAB.ER PO STA (11:24)
--- NOTE | 2020-08-22 11:27 | P.PN ---
Subjective From records: Ms. Luis is a 54-year-old female with a past medical history of hypertension, hyperlipidemia, diabetes mellitus, osteoporosis, GERD, chronic low back pain, diabetic neuropathy, anxiety and depression coming to the hospital stating that she has been having nausea vomiting and diarrhea ongoing for the past 2-3 days. Patient has also complains of generalized body aches, feeling extremely tired and weak. Patient states that she did not have fever at home but was having some chills. Patient denied having any exposure to gaines virus but mentions that [place] recently 7 deaths in her family related to COVID-19 in the month of July. Patient denies having any chest pain or palpitations. She denies having any cough or difficulty breathing. Patient states that she has very poor appetite. Patient denies having any dysuria or hematuria. She denies having any headaches, changes in her vision or speech abnormalities. Patient denies having any recent travel. She denies having any swelling of her lower extremities. In the ER, patient's vitals at the time of admission temperature 100.1, tachycardic at 114, blood pressure 174.92 saturating at 100% on room air. She had a chest x-ray showing no acute cardiopulmonary process and KUB done showing nonspecific bowel gas pattern. On reviewing her labs she had a white count of 14, hemoglobin 14.4, platelets 221. Sodium 143, duration 3.9, chloride 110, bicarbonate 18, BUN 16, creatinine 0.76 blood sugars have been around 300. UA is positive for 4+ glucose, trace blood, negative leukocyte esterase and negative for nitrites. Coronavirus PCR is negative, influenza A and B is negative. She is admitted for evaluation and management. 08/20/2020 This is a pleasant 54 years old female with multiple medical problems was admitted with signs and symptoms of gastroenteritis with nausea vomiting and diarrhea, also she had mild DKA and dehydrated with elevated lactic acid on admission, her lactic acid is back to normal. Patient states for the last 24 hours prior to admission to the hospital she had significant vomiting and diarrhea all day long for 24 hours, currently she feels better with her forms and is stopped and she was able to tolerate diet. However she still have loose bowel movement 1 this morning which was loose. Vitals are stable. Labs look stable except for mild hypokalemia at 3.3 and low phosphorous 2.3. C. diff is negative. Glucose is controlled 08/21/2020 Patient admitted with signs symptoms of possible gastroenteritis however since yesterday her nausea and vomiting was a stopped, yesterday he had 1 loose bowel movement and the morning and since then she had normal bowel movements, no abdominal pain but today she has some epigastric discomfort especially with eating. Patient tolerated liquid diet in the morning level in the afternoon she could not tolerate soft diet sodium went to keep the patient and ask GI team evaluated the patient especially she has history of incomplete workup, where colonoscopy last year was cancelled because of Covid pandemic as per patient Pulmonary input is appreciated, no further pulmonary workup is needed. Patient currently is empirically on ceftriaxone since admission and IV Protonix and Zofran. 08/22/2020 patient with no nausea vomiting today and she tolerated diet well. No abdominal pain, she has normal bowel movements since admission. However patient had low- grade temperature this morning at 100 Per pro-calcitonin was slightly elevated at 0.14. Patient is already on Rocephin, and Flagyl is been added today. We will check blood culture also consult infectious disease team for persistent fever low normal Mg and K replaced Objective - Vital Signs Vital signs: Vital Signs Temp 98.6 F 08/22/20 09:30 Pulse 84 08/22/20 07:46 Resp 18 08/22/20 07:46 BP 143/82 08/22/20 07:46 Pulse Ox 97 08/22/20 07:46 Intake & Output 08/21/20 08/22/20 08/22/20 18:59 06:59 18:59 Other: Voiding Method Toilet # Voids 3 1 - Exam GENERAL: The patient is alert and oriented x3, not in any acute distress. Well developed, well nourished. HEENT: Pupils are round and equally reacting to light. EOMI. No scleral icterus. No conjunctival pallor. Normocephalic, atraumatic. No pharyngeal erythema. No thyromegaly. CARDIOVASCULAR: S1 and S2 present. No murmurs, rubs, or gallops. PULMONARY: Chest is clear to auscultation, no wheezing or crackles. ABDOMEN: Soft, nontender, nondistended, normoactive bowel sounds. No palpable organomegaly. MUSCULOSKELETAL: No joint swelling or deformity. EXTREMITIES: No cyanosis, clubbing, or pedal edema. NEUROLOGICAL: Gross neurological examination did not reveal any focal deficits. SKIN: No rashes. no petechiae. - Labs CBC & Chem 7: 08/20/20 05:55 08/22/20 05:31 Labs: Abnormal Lab Results - Last 24 Hours (Table) 08/21/20 08/21/20 08/21/20 Range/Units 11:48 17:01 20:16 POC Glucose (mg/dL) 166 H 152 H 155 H (75-99) mg/dL 08/22/20 Range/Units 06:51 POC Glucose (mg/dL) 125 H (75-99) mg/dL Assessment and Plan Assessment: Gastroenteritis, mostly viral. Improving Persistent nausea and epigastric discomfort with diet intolerance Lactic acidosis due to dehydration, came back to normal Mild DKA, improved Hypertension Hyperlipidemia GERD Osteoarthritis Chronic low back pain Diabetic neuropathy Anxiety depression Plan: Is a pleasant 54 years old female who presents with gastroenteritis, Consult infectiuos disease team for persistent fever. And continue with Protonix and ceftriaxone and Zofran , add flagyl Labs and medication were reviewed.. Continue same treatment. Continue with symptomatic treatment. Resume home medication. Monitor lytes and vitals. DVT and GI prophylaxis. Further recommendationsas per clinical course of the patient DVT prophylaxis: Subcutaneous heparin GI Prophylaxis: Ppi
[2020-08-22] MEDS: metroNIDAZOLE-NS PMX 500 MG in SALINE 1 100ML.BAG IVPB SCH ×3 (11:45→23:08)
[2020-08-22 12:03] LABS: Glucose,Whole Blood 178 mg/dL (75-99)
[2020-08-22 16:59] LABS: Glucose,Whole Blood 192 mg/dL (75-99)
[2020-08-22] MEDS: IOPAMIDOL CONTRAST (ORAL USE) VIAL PO PRN ×2 (20:03→20:58)
[2020-08-22 20:23] LABS: Glucose,Whole Blood 254 mg/dL (75-99)
--- NOTE | 2020-08-22 22:19 | CT ---
EXAMINATION TYPE: CT abdomen pelvis w con DATE OF EXAM: 08/22/2020 COMPARISON: 05/08/2019. HISTORY: Fever, abdomen pain CT DLP: 1327.2 mGycm Automated exposure control for dose reduction was used. TECHNIQUE: Helical acquisition of images was performed from the lung bases through the pelvis. CONTRAST: Performed with Oral Contrast and with IV Contrast, patient injected with 100 mL of Isovue 300. FINDINGS: LUNG BASES: No significant abnormality is appreciated. LIVER/GB: No significant abnormality is appreciated. Cholecystectomy noted. PANCREAS: No significant abnormality is seen. SPLEEN: No significant abnormality is seen. ADRENALS: No significant abnormality is seen. KIDNEYS: No significant abnormality is seen. FREE AIR: No free air is visualized. RETROPERITONEAL ADENOPATHY: None visualized REPRODUCTIVE ORGANS: No significant abnormality is seen URINARY BLADDER: No significant abnormality is seen. PELVIC ADENOPATHY: None visualized. OSSEOUS STRUCTURES: No acute abnormality is seen. L4-S1 spondylosis. BOWEL: No significant abnormality is seen. OTHER: None. IMPRESSION: NO ACUTE ABNORMALITY.
[2020-08-22 23:33] LABS: Glucose,Whole Blood 225 mg/dL (75-99)
--- NOTE | 2020-08-22 23:35 | CONS ---
CONSULTATION DATE OF SERVICE: 08/22/2020 REASON FOR CONSULTATION: Fever. HISTORY OF PRESENT ILLNESS: The patient is a 54-year-old female with multiple comorbidities, including diabetes, chronic low back pain, anxiety. This patient presented to the hospital on August 19, 2020, for nausea, vomiting and diarrhea. The patient's symptoms had been going on for about 2-3 days before presentation to the hospital. The patient was also complaining of generalized body aches and feeling extremely tired and weak. The patient denies having any abdominal pain, though. With these symptoms, the patient presented to the hospital. On arrival in the ER the patient did have a low-grade fever of 100.1. Subsequently no fever except a low-grade fever of 100 this morning. That prompted this infectious disease consultation. The patient 99% on room air. The patient did have a white count of 14,000 on admission. Subsequently white count has normalized. D-dimer is mildly elevated at 1.36. Procalcitonin 0.14. CRP was less than 5. Urine was negative. Amaya PCR x3 negative. Influenza PCR was negative. She did have stool for C difficile, which was negative. No stool cultures were done. The patient is being treated with Rocephin and Flagyl. Infection Disease was consulted today because of her low-grade fever. The patient did mention resolution of her nausea and vomiting; however, was slightly concerned about the fever this morning. The patient denies having any headache or URI symptoms. The patient denies having any chest pain or shortness of breath or cough. No abdominal pain or any diarrhea. REVIEW OF SYSTEMS: Positive points have been mentioned in HPI. Rest of the systems are negative. PAST MEDICAL HISTORY: Diabetes mellitus, gastroesophageal reflux disease, hypertension, hyperlipidemia, osteoarthritis. PAST SURGICAL HISTORY: Back surgery, , cholecystectomy, tubal ligation. SOCIAL HISTORY: Current everyday smoker and rare marijuana use. FAMILY HISTORY: Father with history of liver disease. ALLERGIES: NO KNOWN DRUG ALLERGIES. MEDICATIONS: The patient is currently on Tylenol, Rocephin 1 gram daily, Cymbalta, heparin, NovoLog, Toradol, Cozaar, Reglan, Flagyl, Zofran and Protonix. PHYSICAL EXAMINATION: Her blood pressure is 163/93 with a pulse of 70, temperature 98.4. She is 99% on room air. General description is a middle-aged female lying in bed in no distress. No tachypnea or accessory muscle of respiration use. HEENT: Examination shows no pallor or scleral icterus. Oral mucous membrane is dry. NECK: Trachea is central. No thyromegaly. LUNGS: Unlabored breathing. Clear to auscultation anteriorly. No wheeze or crackle. HEART: S1, S2. Regular rate and rhythm. ABDOMEN: Soft. No tenderness. No guarding or rigidity. EXTREMITIES: No edema of the feet. SKIN EXAMINATION: No rash or mass palpable. Neurologically the patient is awake, alert, oriented x3. Mood and affect normal. LABS: Hemoglobin is 11.5, white count of 14,000 on admission. Sputum was negative. No in the last 2 days. BUN of 12, creatinine 0.78. Liver enzymes are normal. Procalcitonin was mildly elevated. DIAGNOSTIC IMPRESSION AND PLAN: Patient admitted to hospital with acute nausea, vomiting, diarrhea. No significant abdominal pain, though. GI symptoms have resolved, but she did have a low-grade fever, and initial workup has been negative so far. Chest x-ray was negative with a question of possible abdominal source. PLAN: 1. We will obtain a stool culture to complete the workup. 2. Will obtain a CT of abdomen and pelvis to rule out intraabdominal pathology. 3. Continue Rocephin and Flagyl. 4. Repeat inflammatory markers with morning labs. 5. Will follow her clinical condition and these investigations to further adjust medication if needed. Thank you for this consultation. Will follow this patient along with you. MMODL / IJN: [id number] /
[2020-08-23 06:44] LABS: Basophils % (A) 1 %; Eosinophils # (A) 0.2 k/uL (0-0.7); Eosinophils % (A) 3 %; HCT 38.8 % (34.0-46.0); Lymphocytes % (A) 30 %; MCH 28.2 pg (25.0-35.0); MCHC 33.4 g/dL (31.0-37.0); MCV 84.4 fL (80.0-100.0); Mean Platelet Volume 8.3; Monocytes # (A) 0.4 k/uL (0-1.0); Monocytes % (A) 5 %; Neutrophils # (A) 3.9 k/uL (1.3-7.7); Neutrophils % (A) 60 %; Platelet Count 169 k/uL (150-450); RDW 14.3 % (11.5-15.5); WBC 6.6 k/uL (3.8-10.6)
[2020-08-23 07:33] LABS: Glucose,Whole Blood 167 mg/dL (75-99)
[2020-08-23] MEDS: metroNIDAZOLE-NS PMX 500 MG in SALINE 1 100ML.BAG IVPB SCH (07:49)
[2020-08-23] MEDS: HEPARIN SODIUM,PORCINE 5,000 UNIT/ML 1 ML VIAL SQ SCH (07:49)
[2020-08-23] MEDS: LOSARTAN 25 MG TAB PO SCH (07:50)
[2020-08-23] MEDS: INSULIN ASPART (NovoLOG) 100 UNIT/ML VIAL SQ SCH ×2 (07:50→12:19)
[2020-08-23] MEDS: DULoxetine HCL 60 MG CAPSULE.DR PO SCH (07:50)
[2020-08-23 08:19] VITALS: RESP 16
[2020-08-23] MEDS ORDERED: PANTOPRAZOLE 40 MG TABLET PO SCH (09:00)
[2020-08-23 09:53] LABS: Ferritin 48.5 ng/mL (10.0-291.0)
[2020-08-23 11:48] LABS: Glucose,Whole Blood 182 mg/dL (75-99)
[2020-08-23 12:02] LABS: ALT 31 U/L (8-44); AST 21 U/L (13-35); African American GFR (CKD) 98.2 (60.0-200.0); Albumin/Globulin Ratio 1.76 (1.60-3.17); Alkaline Phosphatase 85 U/L (41-126); C Reactive Protein <0.4 mg/dL (0.0-0.8); Calcium 8.9 mg/dL (8.7-10.3); Carbon Dioxide 28.2 mmol/L (21.6-31.8); Chloride 103 mmol/L (96-109); Globulin 2.1 g/dL (1.6-3.3); Glucose 172 mg/dL (70-110); LDH 200 U/L (120-246); Magnesium 1.6 mg/dL (1.5-2.4); Non-African American GFR(CKD) 84.8 (60.0-200.0); Potassium 3.5 mmol/L (3.5-5.5); Sodium 139 mmol/L (135-145); Total Bilirubin 0.3 mg/dL (0.3-1.2); Total Protein 5.8 g/dL (6.2-8.2)
[2020-08-23 15:38] VITALS: BP 167/84; PULSE 78; TEMP 98.8
--- NOTE | 2020-08-23 15:45 | PN ---
PROGRESS NOTE DATE OF SERVICE: 08/23/2020 REASON FOR FOLLOWUP: Fever, possible viral gastroenteritis. INTERVAL HISTORY: The patient is currently afebrile. The patient is feeling better, breathing comfortably. The patient denies having any chest pain or shortness of breath or cough. No nausea, no vomiting, no abdominal pain or diarrhea. PHYSICAL EXAMINATION: Blood pressure 153/83 with a pulse of 67, temperature 98.2. She is 99% on room air. General description is a middle-aged female lying in bed in no distress. RESPIRATORY SYSTEM: Unlabored breathing. Clear to auscultation anteriorly. HEART: S1, S2. Regular rate and rhythm. ABDOMEN: Soft. No tenderness. LABS: Hemoglobin is 13, white count 6.6, BUN of 12, creatinine 0.8. Liver enzymes are normal. CT of abdomen and pelvis was negative. DIAGNOSTIC IMPRESSION AND PLAN: Patient admitted to hospital with acute nausea, vomiting and diarrhea with a fever. Concern for possible gastritis, possible bacteremia versus viral. Stool cultures were not done. Patient improved on Rocephin and Flagyl. for a short course and continue supportive care. MMODL / IJN: [id number] /
[2020-08-23] MEDS ORDERED: INSULIN ASPART (NovoLOG) 100 UNIT/ML VIAL SQ SCH (23:14)
--- NOTE | 2020-08-24 00:26 | P.DS ---
Providers Date of admission: 08/19/20 05:10 Attending physician: Omega Sumner Consults: 08/19/20 14:45 Consult Physician Routine Consulting Provider: Neal Prince Consult Reason/Comments: r/o covid Do you want consulting provider notified?: Yes 08/22/20 11:22 Consult Physician Urgent Consulting Provider: Jessi Valles Consult Reason/Comments: persistant fever Do you want consulting provider notified?: Yes Primary care physician: Derick Alvarado Hospital Course: Diagnoses Gastroenteritis, mostly viral. Improving. No need for antibiotics And discharge Persistent nausea and epigastric discomfort with diet intolerance, secondary to above improved Lactic acidosis due to dehydration, came back to normal Mild DKA, improved Hypertension Hyperlipidemia GERD Osteoarthritis Chronic low back pain Diabetic neuropathy Anxiety depression Hospital course: Ms. Luis is a 54-year-old female with a past medical history of hypertension, hyperlipidemia, diabetes mellitus, osteoporosis, GERD, chronic low back pain, diabetic neuropathy, anxiety and depression coming to the hospital stating that she has been having nausea vomiting and diarrhea ongoing for the past 2-3 days. Patient has also complains of generalized body aches, feeling extremely tired and weak. He had fever 100.1 upon admission. Patient was treated symptomatically with IV fluid and Zofran and Protonix. Also she was prescribed ceftriaxone and Flagyl, her influenza, coronavirus 2 were negative. Her leukocytosis could back to normal. She was improving slowly, however the third day she spiked another fever around 100, ID team were consulted recommended CT of the abdomen and pelvis which was unremarkable further workup was unremarkable including negative pronecalcitonin at 0.04. Eventually patient returned to her baseline and she was asymptomatic upon discharge and tolerating diet well, she denies nausea vomiting, no abdominal pain, no diarrhea, no other complaint. Patient was referred to go home today. On the day of discharge patient was cleared by all consultants including infectious disease team No need for antibiotics upon discharge as per ID team recommendation Her glucose was low normal, MRI was a stopped and recommended she continue with metformin and she agrees Problems and management plan were discussed with the patient and he verbalized understanding and acceptance Patient was found stable and can be discharged home however he needs follow-up as an outpatient. Patient was instructed to follow up with PCP Dr. Santos within one week and patient agrees Gen: patient is a AAOx3, no distress CVS: S1-S2, RRR, no murmur Lungs: B/L CTA, no wheezing Abdomen: soft, no distention, no tenderness, positive bowel sounds Extremity: no leg edema or induration Time spent more than 35 minutes Patient Condition at Discharge: Fair Plan - Discharge Summary Discharge Rx Participant: Yes New Discharge Prescriptions: Continue metFORMIN HCL [Glucophage] 1,000 mg PO BID Ertugliflozin Pidolate [Steglatro] 15 mg PO DAILY DULoxetine HCL [Cymbalta] 60 mg PO DAILY Gabapentin 300 mg PO TID Cariprazine HCl [Vraylar] 1.5 mg PO DAILY Omeprazole 40 mg PO DAILY Losartan [Cozaar] 12.5 mg PO DAILY HYDROcodone/APAP 10-325MG [[place] 10-325] 1 tab PO QID PRN PRN Reason: Pain Dicyclomine [Bentyl] 20 mg PO BID PRN PRN Reason: stomach pain hydrOXYzine pamoate [Vistaril] 25 mg PO BID PRN PRN Reason: Anxiety Discontinued Glimepiride [Amaryl] 4 mg PO BID tiZANidine [Zanaflex] 2 mg PO BID PRN PRN Reason: Muscle Spasm Meloxicam [Mobic] 15 mg PO DAILY Discharge Medication List Ertugliflozin Pidolate [Steglatro] 15 mg PO DAILY 12/09/18 [History] metFORMIN HCL [Glucophage] 1,000 mg PO BID 12/09/18 [History] DULoxetine HCL [Cymbalta] 60 mg PO DAILY 10/03/19 [History] Cariprazine HCl [Vraylar] 1.5 mg PO DAILY 08/19/20 [History] Dicyclomine [Bentyl] 20 mg PO BID PRN 08/19/20 [History] Gabapentin 300 mg PO TID 08/19/20 [History] HYDROcodone/APAP 10-325MG [[place] 10-325] 1 tab PO QID PRN 08/19/20 [History] Losartan [Cozaar] 12.5 mg PO DAILY 08/19/20 [History] Omeprazole 40 mg PO DAILY 08/19/20 [History] hydrOXYzine pamoate [Vistaril] 25 mg PO BID PRN 08/19/20 [History] Follow up Appointment(s)/Referral(s): Jenny Sepulveda MD [Primary Care Provider] - 08/29/20 10:50 am Patient Instructions/Handouts: Diabetic Ketoacidosis (DC), Gastroenteritis (DC) Discharge Disposition: HOME SELF-CARE
--- NOTE | 2020-08-30 01:38 | CDI ---
Documentation Clarification Form Date:08/30/2020 From: Yusef Jeong Phone: If you have a question about this query, please contact Dacia Estrada, Optics Engineer at [phone] between 8am and 5pm. Admit Date: 08/19/2020 05:10:00 AM Patient Name: Jerrica Luis Visit Number: [id number] Discharge Date: 08/23/2020 04:24:00 PM ATTENTION: The Clinical Documentation Specialists (CDI) and [facility] Coding Staff appreciate your assistance in clarifying documentation. Please respond to the clarification below the line at the bottom and electronically sign. The CDI & [facility] Coding staff will review the response and follow-up if needed. Please note: Queries are made part of the Legal Health Record. If you have any questions, please contact the author of this message via ITS. Dr. Suraj Briseno MD., The patient presented with the Dehydration, Intractable vomiting, Abdominal pain, Intractable abdominal pain, Uncontrolled diabetes mellitus. History/Risk Factors: Diabetes Mellitus, GERD/Reflux, Hyperlipidemia, Clinical Indicators: Sepsis - could be due to acute viral syndrome WBC :14.0 Blood cultures: [id number] Vitals signs on admission: Temperature 100.1 F H 98.4 F Pulse Rate 114 H 108 H Respiratory 20 18 Rate Blood Pressure 174/92 156/93 O2 Sat by Pulse 100 100 Treatment: Patient was treated symptomatically with IV fluid and Zofran and Protonix. ID Consult: Patient admitted to hospital with acute nausea, vomiting and diarrhea with a fever. Concern for possible gastritis, possible bacteremia versus viral. Antibiotics: Rocephin, Flagyl 08/21 Progress note stated "Possible sepsis with an unknown source, chest x-ray did not show any evidence of pulmonary infiltrates, COVID 19 PCR was negative 2, urinalysis without clear evidence of infection, patient had evidence of mild DKA, was fluid resuscitated, clinically improved". In your professional opinion, please clarify if these findings signify one of the following conditions, Condition Sepsis ruled out Sepsis Severe Sepsis Septic Shock Other, please specify Unable to determine mild sepsis with fever and leukocytosis on presentation , resolved MTDD
== END 2020-08-23 16:24 | disposition home or self-care (01) | DRG 871 ==
LOC: EC 03:10 → 2SICU 05:10 → 4SSUR 22:46
PROVIDERS: ADMIT Hospitalist; ATTEND Hospitalist
DX: A41.9 Sepsis, unspecified organism (principal); E11.10 Type 2 diabetes mellitus with ketoacidosis without coma; A08.4 Viral intestinal infection, unspecified; E11.42 Type 2 diabetes mellitus with diabetic polyneuropathy; E11.65 Type 2 diabetes mellitus with hyperglycemia; R00.1 Bradycardia, unspecified; E86.0 Dehydration; F41.8 Other specified anxiety disorders; G89.29 Other chronic pain; M81.0 Age-related osteoporosis without current pathological fracture; Z20.822 Contact with and (suspected) exposure to COVID-19; M54.5 Low back pain; R19.7 Diarrhea, unspecified; E87.6 Hypokalemia; R63.0 Anorexia; E78.5 Hyperlipidemia, unspecified; I10 Essential (primary) hypertension; K21.9 Gastro-esophageal reflux disease without esophagitis; M19.90 Unspecified osteoarthritis, unspecified site; R10.9 Unspecified abdominal pain; K59.00 Constipation, unspecified; M54.2 Cervicalgia; F41.0 Panic disorder [episodic paroxysmal anxiety]; F32.9 Major depressive disorder, single episode, unspecified; F41.9 Anxiety disorder, unspecified; F17.200 Nicotine dependence, unspecified, uncomplicated; Z98.1 Arthrodesis status; Z90.49 Acquired absence of other specified parts of digestive tract; Z98.51 Tubal ligation status; Z98.42 Cataract extraction status, left eye; Z98.41 Cataract extraction status, right eye; Z96.1 Presence of intraocular lens; Z98.891 History of uterine scar from previous surgery; Z79.84 Long term (current) use of oral hypoglycemic drugs; Z79.899 Other long term (current) drug therapy; Z79.1 Long term (current) use of non-steroidal anti-inflammatories (NSAID); Z84.89 Family history of other specified conditions
CPT/HCPCS: 36415; 71045; 74018; 74177; 80053; 81001; 82009; 82550; 82728; 82803; 83036; 83605; 83615; 83690; 83735; 84100; 84132; 84145; 85025; 85379; 86140; 87324; 87449; 87502; 87635; 96361; 96374; 96375; 99291

== ENCOUNTER 2021-07-08 13:38 | Emergency (ER) | payer OTHER ==
[2021-07-08 16:16] LABS: Basophils # (A) 0.1 k/uL (0-0.2); Basophils % (A) 0 %; Eosinophils # (A) 0.1 k/uL (0-0.7); Eosinophils % (A) 1 %; HCT 41.3 % (34.0-46.0); HGB 14.1 gm/dL (11.4-16.0); Lymphocytes # (A) 1.6 k/uL (1.0-4.8); Lymphocytes % (A) 12 %; MCH 27.9 pg (25.0-35.0); MCHC 34.1 g/dL (31.0-37.0); MCV 81.8 fL (80.0-100.0); Mean Platelet Volume 8.1; Monocytes # (A) 0.6 k/uL (0-1.0); Monocytes % (A) 5 %; Neutrophils # (A) 10.3 k/uL (1.3-7.7); Neutrophils % (A) 81 %; Platelet Count 239 k/uL (150-450); RBC 5.05 m/uL (3.80-5.40); RDW 14.8 % (11.5-15.5); WBC 12.7 k/uL (3.8-10.6)
[2021-07-08 16:28] LABS: ALT 16 U/L (4-34); AST 21 U/L (14-36); African American GFR (CKD) >90 (>60 ml/min/1.73 sqM); Albumin 4.5 g/dL (3.5-5.0); Alkaline Phosphatase 94 U/L (38-126); Amylase 58 U/L (30-110); Anion Gap 15 mmol/L; Blood Urea Nitrogen 31 mg/dL (7-17); Calcium 9.8 mg/dL (8.4-10.2); Carbon Dioxide 23 mmol/L (22-30); Chloride 98 mmol/L (98-107); Glucose 236 mg/dL (74-99); Lipase 96 U/L (23-300); Non-African American GFR(CKD) 85 (>60 ml/min/1.73 sqM); Potassium 4.3 mmol/L (3.5-5.1); Sodium 136 mmol/L (137-145); Total Bilirubin 0.7 mg/dL (0.2-1.3); Total Protein 7.7 g/dL (6.3-8.2)
[2021-07-08 19:20] LABS: Appearance,Urine Clear (Clear); Bilirubin,Urine Negative (Negative); Blood,Urine Small (Negative); Color,Urine Yellow; Glucose,Urine (UA) 4+ (Negative); Hyaline Casts,Urine 3 /lpf (0-2); Leukocyte Esterase,Urine Negative (Negative); Mucus,Urine Rare /hpf; Nitrite,Urine Negative (Negative); PH, Urine 5.5 (5.0-8.0); Protein,Urine 2+ (Negative); RBC,Urine 4 /hpf (0-5); Specific Gravity,Urine 1.034 (1.001-1.035); Squamous Epithelial Cell,Urine 1 /hpf (0-4); Urobilinogen,Urine <2.0 mg/dL (<2.0); WBC,Urine 14 /hpf (0-5)
[2021-07-08 19:39] LABS: Ketones,Urine 4+ (Negative)
[2021-07-08] MEDS ORDERED: ONDANSETRON 4 MG/2 ML VIAL IVP STA (19:42)
[2021-07-08] MEDS ORDERED: SODIUM CHLORIDE 0.9% 1,000 ML IV ONE (19:42)
[2021-07-08] MEDS ORDERED: diphenhydrAMINE 50 MG/ML 1 ML VIAL IVP STA (19:42)
[2021-07-08] MEDS ORDERED: SODIUM CHLORIDE 0.9% 500 ML 500 ML IV ONE (19:42)
[2021-07-08] MEDS ORDERED: HYDROmorphone 0.5 MG/0.5 ML SYRINGE IVP STA (19:43)
[2021-07-08] MEDS ORDERED: PANTOPRAZOLE 40 MG/10 ML VIAL IVP STA (19:43)
--- NOTE | 2021-07-08 19:48 | ED ---
Nausea/Vomiting/Diarrhea HPI - General Chief complaint: Nausea/Vomiting/Diarrhea Stated complaint: NVD Time Seen by Provider: 07/08/21 19:03 Source: patient Mode of arrival: wheelchair Limitations: no limitations - History of Present Illness Initial comments: 55-year-old female patient presents to the emergency department today for evaluation of nausea, vomiting, diarrhea since Wednesday. States she's been unable to keep down any food or fluids. States she is having midepigastric abdominal discomfort. States she's been having black stools. Denies use of Pepto-Bismol or any other medications. States she's been bad for 2 full days. States when going to the bathroom at one point should have a fall and hit her buttocks on the side of the tub. Denies pain radiation down her legs. Denies numbness, tingling, or weakness to the lower extremities. She denies any fevers with a she has been chilled. Reports generalized weakness. Does have a history of diabetes. - Related Data Home Medications Medication Instructions Recorded Confirmed metFORMIN HCL [Glucophage] 1,000 mg PO BID 12/09/18 07/08/21 DULoxetine HCL [Cymbalta] 60 mg PO DAILY 10/03/19 07/08/21 Dicyclomine [Bentyl] 20 mg PO BID PRN 08/19/20 07/08/21 Gabapentin 300 mg PO TID 08/19/20 07/08/21 HYDROcodone/APAP 10-325MG [[place] 1 tab PO TID PRN 08/19/20 07/08/21 10-325] hydrOXYzine pamoate [Vistaril] 25 mg PO BID PRN 08/19/20 07/08/21 Empagliflozin [Jardiance] 25 mg PO DAILY 07/08/21 07/08/21 Glimepiride [Amaryl] 4 mg PO BID 07/08/21 07/08/21 Meloxicam 15 mg PO DAILY 07/08/21 07/08/21 Ondansetron [Zofran] 4 mg PO Q8HR PRN 07/08/21 07/08/21 Rosuvastatin Calcium [Crestor] 5 mg PO HS 07/08/21 07/08/21 tiZANidine HCL 2 mg PO BID PRN 07/08/21 07/08/21 Previous Rx's Medication Instructions Recorded Ondansetron [Zofran ODT] 4 mg PO Q8HR PRN #20 tab 07/08/21 Pantoprazole Sodium [Protonix] 40 mg PO DAILY #30 tab 07/08/21 Allergies Allergy/AdvReac Type Severity Reaction Status Date / Time No Known Allergies Allergy Verified 07/08/21 22:10 Review of Systems ROS Statement: Those systems with pertinent positive or pertinent negative responses have been documented in the HPI. ROS Other: All systems not noted in ROS Statement are negative. Past Medical History Past Medical History: Diabetes Mellitus, GERD/Reflux, Hyperlipidemia, Hyp ertension, Osteoarthritis (OA) Additional Past Medical History / Comment(s): back & neck pain, neuropathy feet, states having constipation & stomach pain. History of Any Multi-Drug Resistant Organisms: None Reported Past Surgical History: Back Surgery, Section, Cholecystectomy, Tubal Ligation Additional Past Surgical History / Comment(s): , bilateral cataracts with implants, back surgery 2x "cleaned my back canal" and a fusion Past Anesthesia/Blood Transfusion Reactions: No Reported Reaction, Motion Sickness Past Psychological History: Anxiety, Depression, Panic Disorder Smoking Status: Current every day smoker Past Alcohol Use History: Rare Past Drug Use History: Marijuana - Past Family History Father Family Medical History: Liver Disease Additional Family Medical History / Comment(s): Father of liver disease. Mother Family Medical History: No Reported History Additional Family Medical History / Comment(s): . General Exam Limitations: no limitations General appearance: alert, in no apparent distress, other (This is a well- developed, well-nourished adult female in no acute distress) ENT exam: Present: normal exam, normal oropharynx, mucous membranes moist Respiratory exam: Present: normal lung sounds bilaterally. Absent: respiratory distress, wheezes, rales, rhonchi, stridor Cardiovascular Exam: Present: normal rhythm, tachycardia, normal heart sounds. Absent: systolic murmur, diastolic murmur, rubs, gallop, clicks GI/Abdominal exam: Present: soft, normal bowel sounds. Absent: distended, tenderness, guarding, rebound, rigid Neurological exam: Present: alert, oriented X3, CN II-XII intact Psychiatric exam: Present: normal affect, normal mood Skin exam: Present: warm, dry, intact, normal color. Absent: rash Course Vital Signs 07/08/21 07/08/21 15:54 22:24 Temperature 98.1 F 98.6 F Pulse Rate 114 H 99 Respiratory 20 18 Rate Blood Pressure 144/86 120/75 O2 Sat by Pulse 100 100 Oximetry Medical Decision Making - Medical Decision Making 55-year-old female patient presents to the emergency department today for evaluation of vomiting and diarrhea for the last 3 days. States she did start to have black stool. Physical examination did reveal soft nontender abdomen. Labs reviewed and did reveal mild elevated white blood cell count at 12.7. Sodium was 136, BUN 31. Glucose 236. Urinalysis did show 2+ protein, plus glucose and ketones. She did have a positive occult blood. COVID-19 negative. She was given IV fluids and IV medications. IV Protonix. I did discuss findings and results with her. As her hemoglobin is normal at this time blood pressure is also normal we will discharge to follow-up with GI specialist. Sh e'll be started on Protonix outpatient. She is given nausea medication as well. Return parameters were discussed in detail. She verbalizes understanding and agrees with this plan. Case discussed with my attending Dr. Chino. - Lab Data Result diagrams: 07/08/21 16:06 07/08/21 16:06 Lab Results 07/08/21 07/08/21 07/08/21 Range/Units 16:01 16:06 16:06 WBC 12.7 H (3.8-10.6) k/uL RBC 5.05 (3.80-5.40) m/uL Hgb 14.1 (11.4-16.0) gm/dL Hct 41.3 (34.0-46.0) % MCV 81.8 (80.0-100.0) fL MCH 27.9 (25.0-35.0) pg MCHC 34.1 (31.0-37.0) g/dL RDW 14.8 (11.5-15.5) % Plt Count 239 (150-450) k/uL MPV 8.1 Neutrophils % 81 % Lymphocytes % 12 % Monocytes % 5 % Eosinophils % 1 % Basophils % 0 % Neutrophils # 10.3 H (1.3-7.7) k/uL Lymphocytes # 1.6 (1.0-4.8) k/uL Monocytes # 0.6 (0-1.0) k/uL Eosinophils # 0.1 (0-0.7) k/uL Basophils # 0.1 (0-0.2) k/uL Sodium 136 L (137-145) mmol/L Potassium 4.3 (3.5-5.1) mmol/L Chloride 98 (98-107) mmol/L Carbon Dioxide 23 (22-30) mmol/L Anion Gap 15 mmol/L BUN 31 H (7-17) mg/dL Creatinine 0.80 (0.52-1.04) mg/dL Est GFR (CKD-EPI)AfAm >90 (>60 ml/min/1.73 sqM) Est GFR (CKD-EPI)NonAf 85 (>60 ml/min/1.73 sqM) Glucose 236 H (74-99) mg/dL Calcium 9.8 (8.4-10.2) mg/dL Total Bilirubin 0.7 (0.2-1.3) mg/dL AST 21 (14-36) U/L ALT 16 (4-34) U/L Alkaline Phosphatase 94 (38-126) U/L Total Protein 7.7 (6.3-8.2) g/dL Albumin 4.5 (3.5-5.0) g/dL Amylase 58 (30-110) U/L Lipase 96 (23-300) U/L Urine Color Urine Appearance (Clear) Urine pH (5.0-8.0) Ur Specific [place] (1.001-1.035) Urine Protein (Negative) Urine Glucose (UA) (Negative) Urine Ketones (Negative) Urine Blood (Negative) Urine Nitrite (Negative) Urine Bilirubin (Negative) Urine Urobilinogen (<2.0) mg/dL Ur Leukocyte Esterase (Negative) Urine RBC (0-5) /hpf Urine WBC (0-5) /hpf Ur Squamous Epith Cells (0-4) /hpf Hyaline Casts (0-2) /lpf Urine Mucus (None) /hpf Stool Occult Blood (Negative) Coronavirus (PCR) Not Detected (Not Detectd) 07/08/21 07/08/21 Range/Units 19:01 20:19 WBC (3.8-10.6) k/uL RBC (3.80-5.40) m/uL Hgb (11.4-16.0) gm/dL Hct (34.0-46.0) % MCV (80.0-100.0) fL MCH (25.0-35.0) pg MCHC (31.0-37.0) g/dL RDW (11.5-15.5) % Plt Count (150-450) k/uL MPV Neutrophils % % Lymphocytes % % Monocytes % % Eosinophils % % Basophils % % Neutrophils # (1.3-7.7) k/uL Lymphocytes # (1.0-4.8) k/uL Monocytes # (0-1.0) k/uL Eosinophils # (0-0.7) k/uL Basophils # (0-0.2) k/uL Sodium (137-145) mmol/L Potassium (3.5-5.1) mmol/L Chloride (98-107) mmol/L Carbon Dioxide (22-30) mmol/L Anion Gap mmol/L BUN (7-17) mg/dL Creatinine (0.52-1.04) mg/dL Est GFR (CKD-EPI)AfAm (>60 ml/min/1.73 sqM) Est GFR (CKD-EPI)NonAf (>60 ml/min/1.73 sqM) Glucose (74-99) mg/dL Calcium (8.4-10.2) mg/dL Total Bilirubin (0.2-1.3) mg/dL AST (14-36) U/L ALT (4-34) U/L Alkaline Phosphatase (38-126) U/L Total Protein (6.3-8.2) g/dL Albumin (3.5-5.0) g/dL Amylase (30-110) U/L Lipase (23-300) U/L Urine Color Yellow Urine Appearance Clear (Clear) Urine pH 5.5 (5.0-8.0) Ur Specific [place] 1.034 (1.001-1.035) Urine Protein 2+ H (Negative) Urine Glucose (UA) 4+ H (Negative) Urine Ketones 4+ H (Negative) Urine Blood Small H (Negative) Urine Nitrite Negative (Negative) Urine Bilirubin Negative (Negative) Urine Urobilinogen <2.0 (<2.0) mg/dL Ur Leukocyte Esterase Negative (Negative) Urine RBC 4 (0-5) /hpf Urine WBC 14 H (0-5) /hpf Ur Squamous Epith Cells 1 (0-4) /hpf Hyaline Casts 3 H (0-2) /lpf Urine Mucus Rare H (None) /hpf Stool Occult Blood Positive H (Negative) Coronavirus (PCR) (Not Detectd) - Radiology Data Radiology results: report reviewed, image reviewed X-ray of the lumbar spine and pelvis is obtained. Report was reviewed in its entirety. Impression by Dr. Aden shows no acute fracture dislocation the pelvis. Posterior spinal fusion L4 to S1 without evidence of complication. Disposition Clinical Impression: Vomiting and diarrhea, Peptic ulcer Disposition: HOME SELF-CARE Condition: Good Instructions (If sedation given, give patient instructions): Peptic Ulcer (ED), Diet for Stomach Ulcers and Gastritis (ED), Acute Nausea and Vomiting (ED) Additional Instructions: Take medications as directed. Start with clear liquid diet and advance as tolerated. Follow-up with your primary care physician for recheck in 1-2 days. Return for any new, worsening, or concerning symptoms. Prescriptions: Pantoprazole Sodium [Protonix] 40 mg PO DAILY #30 tab Ondansetron [Zofran ODT] 4 mg PO Q8HR PRN #20 tab PRN Reason: Nausea Is patient prescribed a controlled substance at d/c from ED?: No Referrals: Jenny Sepulveda MD [Primary Care Provider] - 1-2 days Genny Back MD [STAFF PHYSICIAN] - 1-2 days Time of Disposition: 21:49
--- NOTE | 2021-07-08 21:24 | XR ---
EXAMINATION TYPE: XR pelvis AP view, XR lumbosacral spine min 4V DATE OF EXAM: 07/08/2021 CLINICAL HISTORY: Pain after fall TECHNIQUE: A single AP view of the pelvis is obtained. AP, oblique and lateral views of the lumbosacr al spine were obtained. COMPARISON: CT abdomen pelvis 08/22/2020. FINDINGS: Pelvis: There is no acute fracture/dislocation evident in the pelvis. The hip and sacroiliac joints appear symmetric and unremarkable. The overlying soft tissue appears unremarkable. Lumbosacral spine: There is posterior spinal fusion of L4-S1 with transpedicular screws and vertical stabilization rods. Interbody device is seen at L4-L5. Hardware appears intact without evidence of fr acture. There is straightening of the lumbar lordosis. There is no fracture or subluxation. IMPRESSION: 1. There is no acute fracture or dislocation in the pelvis. 2. Posterior spinal fusion at L4-S1 without evidence of complication.
[2021-07-08 22:26] VITALS: BP 120/75; PULSE 99; RESP 18; TEMP 98.6
== END 2021-07-08 22:24 | disposition home or self-care (01) ==
LOC: EC 13:38
DX: K27.9 Peptic ulcer, site unspecified, unspecified as acute or chronic, without hemorrhage or perforation (principal); R11.10 Vomiting, unspecified; R19.7 Diarrhea, unspecified; E78.5 Hyperlipidemia, unspecified; I10 Essential (primary) hypertension; M19.90 Unspecified osteoarthritis, unspecified site; K21.9 Gastro-esophageal reflux disease without esophagitis; E11.40 Type 2 diabetes mellitus with diabetic neuropathy, unspecified; F41.0 Panic disorder [episodic paroxysmal anxiety]; F32.A Depression, unspecified; F17.200 Nicotine dependence, unspecified, uncomplicated; F12.90 Cannabis use, unspecified, uncomplicated; Z72.89 Other problems related to lifestyle; Z79.84 Long term (current) use of oral hypoglycemic drugs; Z79.899 Other long term (current) drug therapy
CPT/HCPCS: 36415; 80053; 82150; 83690; 85025; 82272; 81001; 87635; 72110; 72170; 99284; 96374; 96375 ×3; 96361 ×2; J1200; J2405; C9113; J1170

== ENCOUNTER → 2023-09-22 | Outpatient (CLI) | payer MEDICARE ==
[2023-09-22 16:07] LABS: ALT 11 U/L (8-44); AST 16 U/L (13-35); Albumin/Globulin Ratio 1.48 Ratio (1.60-3.17); Alkaline Phosphatase 93 U/L (41-126); BUN/Creat Ratio 23.33 Ratio (12.00-20.00); Carbon Dioxide 23.1 mmol/L (21.6-31.8); Chloride 103 mmol/L (96-109); Chol/HDL Ratio 3.93 Ratio; Globulin 2.7 g/dL (1.6-3.3); Glucose 203 mg/dL (70-110); LDL Cholesterol,Calculated 147.2 mg/dL (0.0-131.0); Potassium 4.3 mmol/L (3.5-5.5); Sodium 138 mmol/L (135-145); Total Bilirubin <0.2 mg/dL (0.3-1.2); Total Protein 6.7 g/dL (6.2-8.2)
[2023-09-22 22:18] LABS: Urine Creatinine 35.3 mg/dL (28.0-217.0)
== END | disposition home or self-care (01) ==
LOC: LABWHC1 11:14
PROVIDERS: ATTEND Internal Medicine
DX: E11.65 Type 2 diabetes mellitus with hyperglycemia (principal); E55.9 Vitamin D deficiency, unspecified
CPT/HCPCS: 36415; 80053; 80061; 82043; 82306; 82570; 83036